=== PATIENT | male | born 1965 | race Caucasian/White ===

== ENCOUNTER → 2018-01-22 09:30 | Outpatient (CLI) | payer OTHER, SELFPAY ==
--- NOTE | 2018-01-22 09:32 | DI.RAD.S_ITS ---
PROCEDURE: XR ANKLE LT MIN 3V INDICATIONS: L ankle pain- TTP lateral mallelous TECHNIQUE: 3 views of the ankle were acquired. COMPARISON: None. FINDINGS: Bones: No fractures or dislocations. Ankle mortise is normally aligned. No suspicious bony lesions. Soft tissues: No tibiotalar joint effusion. Achilles tendon appears normal. IMPRESSION: No visualized acute fracture or dislocation. However, if clinical concern and/or pain persist, short interval imaging followup in 7-10 days is recommended, as occult injury cannot be definitively excluded. Dictated by: Beverly Singh M.D. on 01/22/2018 at 9:52 Approved by: Beverly Singh M.D. on 01/22/2018 at 9:53
== END ==
PROVIDERS: Family Provider Family Medicine; PCP Family Medicine
DX: M25.572 Pain in left ankle and joints of left foot (principal)
CPT/HCPCS: 73610

== ENCOUNTER 2018-03-28 15:35 | Emergency (ER) | payer OTHER, SELFPAY ==
[2018-03-28 15:36] VITALS: BP 127/78; PULSE 80; RESP 14; TEMP 37.1; O2SAT 78; BMI 25.5
--- NOTE | 2018-03-28 15:57 | DI.CT.S_ITS ---
PROCEDURE: CT ABDOMEN PELVIS W CON INDICATIONS: Right lower quadrant abdominal pain 2 weeks TECHNIQUE: After the administration of intravenous contrast, 5 mm thick sections acquired from the diaphragm to the symphysis. 5 mm coronal and sagittal reformats were acquired. For radiation dose reduction, the following was used: automated exposure control, adjustment of mA and/or kV according to patient size. COMPARISON: None. FINDINGS: Image quality: Excellent. ABDOMEN: Lung bases: Lung bases are clear. Heart size is normal. Solid organs: Liver is normal in size and enhancement, with what appears to be mild fatty infiltration throughout. Gallbladder appears normal. Biliary system is non dilated. Pancreas enhances normally. Spleen is normal in size and enhancement. No adrenal nodules. Kidneys demonstrate normal size and enhancement, without hydronephrosis. Peritoneum and bowel: Bowel loops demonstrate normal wall thickness and caliber except that the right upper quadrant where mural thickening of the proximal transverse colon is associated with acute diverticulitis without peridiverticular abscess. No free fluid or air. Nodes and vessels: No retroperitoneal or mesenteric adenopathy by size criteria. Aorta and inferior vena cava are normal in size. Miscellaneous: No ventral hernias. PELVIS: Genitourinary: Bladder wall thickness is normal. Miscellaneous: No inguinal hernias or adenopathy. Bones: No suspicious bony lesions. No vertebral body compression fractures. IMPRESSION: Right upper quadrant acute diverticulitis involving the proximal transverse colon, without. Diverticular abscess. Elsewhere the study is normal except for fatty infiltration throughout the liver. Dictated by: Hollis Bateman M.D. on 03/28/2018 at 17:14 Approved by: Hollis Bateman M.D. on 03/28/2018 at 17:20
[2018-03-28 16:02] LABS: Add Manual Diff / Slide Review NO; Basophils Percent Auto 0.7 % (0-2); Eosinophils Percent Auto 1.1 % (2-4); Hematocrit 38.4 % (41-53); Hemoglobin 13.3 g/dL (13.5-17.5); Lymphocytes Percent Auto 11.6 % (25-40); Mean Corpuscular HGB Conc 34.7 % (30-36); Mean Corpuscular Hemoglobin 31.3 PG (26-34); Mean Corpuscular Volume 90.3 fL (80-100); Monocytes Percent Auto 9.2 % (3-14); Neutrophils Absolute Auto 8400 /uL (3000-5900); Neutrophils Percent Auto 77.4 % (50-75); Platelet Count 187 X10^3/uL (150-400); Red Blood Cell Count 4.26 X10^6/uL (4.5-5.9); Red Cell Distribution Width 13.2 % (11.6-14.8); White Blood Cell Count 10.9 X10^3/uL (4.5-11.0)
[2018-03-28 16:06] LABS: INR 1.2 (0.9-1.3); Prothrombin Time 12.7 SECONDS (10.1-12.7)
[2018-03-28 16:08] LABS: PTT Partial Thromboplastin Tim 36 SECONDS (26.4-36.2)
[2018-03-28 16:14] LABS: Alanine Aminotransferase 42 IU/L (21-72); Albumin 4.5 g/dL (3.5-5.0); Albumin Globulin Ratio 1.5 (1.0-2.8); Alkaline Phosphatase 93 U/L (38-126); Aspartate Aminotransferase 30 IU/L (17-59); BUN Creatinine Ratio 16.4 (6-22); Bilirubin Total 0.9 mg/dL (0.2-1.3); Blood Urea Nitrogen 18 mg/dL (9-20); Calcium 9.9 mg/dL (8.4-10.2); Carbon Dioxide 28 mmol/L (22-32); Chloride 102 mmol/L (98-107); Estimated Glomerular Filt Rate > 60.0 mL/min (>60); Glucose 105 mg/dL (70-100); HEMOLYSIS < 15 (0-50); Lipase 51 U/L (23-300); Potassium 3.9 mmol/L (3.4-5.1); Sodium 142 mmol/L (137-145); Total Protein 7.5 g/dL (6.3-8.2)
--- NOTE | 2018-03-28 18:58 | ED.ABDPAIN ---
HPI - Abdominal Pain <ANDREWS Kraft - Last Filed: 03/28/18 21:51> General Chief Complaint: Abdominal Pain Stated Complaint: SENT FROM [facility] FOR APPENDICITIS Time Seen by Provider: 03/28/18 17:41 Source: patient, family and RN notes reviewed Mode of arrival: ambulatory Limitations: no limitations History of Present Illness HPI narrative: Patient presents with chief complaint of abdominal pain for the past 2-3 weeks. He was sent here from his PCP's office. Given his right side abdominal pain, that suspicion of appendicitis. Patient states his pain started 3 days ago. He denies fevers chills nausea vomiting or diarrhea. He denies constipation. He denies chest pain, shortness of breath, sore throat, ear pain or any other acute concerns. He states he has never felt this way before. Related Data Home Medications Medication Instructions Recorded Confirmed CA PANTOTHENATE/FOLIC ACID/VIT 1 tab PO Q DAY #0 03/24/13 03/28/18 (MULTIVITAMIN) ranitidine HCl [Zantac] 150 mg PO Q DAY #0 03/24/13 03/28/18 Previous Rx's Medication Instructions Recorded sildenafil (antihypertensive) 20 mg PO QDAY #30 tab 04/12/17 [Revatio] alprazolam 0.25 mg PO BID #60 tab 10/07/17 gabapentin 1,600 mg PO BID #180 tab 11/19/17 labetalol 200 mg tablet 200 mg PO BID #60 tab 03/17/18 gemfibrozil 600 mg tablet 600 mg PO DAILY #90 tab 03/19/18 ciprofloxacin HCl 500 mg PO Q12H 10 Days #20 tab 03/28/18 metronidazole 500 mg PO TID 10 Days #30 tab 03/28/18 oxycodone 5 mg PO Q4-6H PRN #14 tab 03/28/18 Allergies Allergy/AdvReac Type Severity Reaction Status Date / Time No Known Drug Allergies Allergy Verified 03/28/18 15:39 Review of Systems <ANDREWS Kraft - Last Filed: 03/28/18 21:51> Review of Systems GENERAL: Denies chills, fatigue, malaise, fever, sweats. HEENT: Denies sinus pain, ear pain, sore throat, difficulty swallowing, dizziness. RESPIRATORY: Denies dyspnea, cough, wheezing, hemoptysis, sputum. CARDIOVASCULAR: Denies chest pain, palpitations, orthopnea, edema, GASTROINTESTINAL: See HPI : Denies dysuria, frequency, incontinence, hematuria, urinary retention. MUSCULOSKELETAL: denies weakness, joint pain, or bony pain SKIN: Denies rash, skin lesions, or other NEUROLOGIC: Denies weakness, headache, numbness, change in speech, confusion, seizures, incoordination. PSYCHIATRIC: No concerning psychosocial issues. 12 point review of systems is negative except for those stated above Exam <JESSICA Kraft-BC - Last Filed: 03/28/18 21:51> Narrative Exam Narrative: GENERAL: This is a well-nourished, well-developed patient, in no acute distress sitting on stretcher. HEAD: Atraumatic. Normocephalic. No temporal or scalp tenderness. EYES: Pupils equal round and reactive. Extraocular motions intact. No scleral icterus. No injection or drainage. ENT: Nose without bleeding, purulent drainage or septal hematoma. Throat without erythema, tonsillar hypertrophy or exudate. Uvula midline. Airway patent. NECK: Trachea midline. No JVD or lymphadenopathy. Supple, nontender, no meningeal signs. CARDIOVASCULAR: Regular rate and rhythm without murmurs, gallops, or rubs. RESPIRATORY: Clear to auscultation. Breath sounds equal bilaterally. No wheezes, rales, or rhonchi. GASTROINTESTINAL: Abdomen soft, active bowel sounds all 4 quadrants. Tenderness to palpation noted right upper quadrant right lower quadrant. No guarding noted. Nonrigid abdomen. No pulsatile mass palpable. EXTREMITIES: No clubbing, cyanosis, or edema. No joint tenderness, effusion, or edema noted. BACK: Nontender without deformity or crepitance. No flank tenderness. NEURO: AOx3. SKIN: No rash or erythema. Initial Vital Signs Initial Vital Signs: Vital Signs Temperature 98.8 F 03/28/18 15:36 Pulse Rate 80 03/28/18 15:36 Respiratory Rate 14 03/28/18 15:36 Blood Pressure 127/78 03/28/18 15:36 Pulse Oximetry 78 L 03/28/18 15:36 <Carina Matias DO - Last Filed: 03/30/18 14:52> Initial Vital Signs Initial Vital Signs: Vital Signs Temperature 98.8 F 03/28/18 15:36 Pulse Rate 80 03/28/18 15:36 Respiratory Rate 14 03/28/18 15:36 Blood Pressure 127/78 03/28/18 15:36 Pulse Oximetry 78 L 03/28/18 15:36 Course <GEM KraftP-BC - Last Filed: 03/28/18 21:51> Orders Ordered: Discontinued Medications Ciprofloxacin (Cipro) 500 mg PO NOW ONE Stop: 03/28/18 19:41 Last Admin: 03/28/18 19:55 Dose: 500 mg Metronidazole (Metronidazole) 500 mg PO NOW ONE Stop: 03/28/18 19:41 Last Admin: 03/28/18 19:55 Dose: 500 mg Morphine Sulfate (Morphine) 4 mg IV NOW ONE Stop: 03/28/18 19:32 Last Admin: 03/28/18 19:37 Dose: 4 mg Ondansetron HCl (Zofran) 4 mg IV NOW ONE Stop: 03/28/18 19:32 Last Admin: 03/28/18 19:37 Dose: 4 mg Vital Signs - 8 hr 03/28/18 15:36 03/28/18 20:10 Temperature 98.8 F Pulse Rate 80 75 Respiratory Rate 14 16 Blood Pressure 127/78 Blood Pressure [Left Arm] 138/85 Pulse Oximetry 78 L 99 <Carina Matias DO - Last Filed: 03/30/18 14:52> Orders Ordered: Discontinued Medications Ciprofloxacin (Cipro) 500 mg PO NOW ONE Stop: 03/28/18 19:41 Last Admin: 03/28/18 19:55 Dose: 500 mg Metronidazole (Metronidazole) 500 mg PO NOW ONE Stop: 03/28/18 19:41 Last Admin: 03/28/18 19:55 Dose: 500 mg Morphine Sulfate (Morphine) 4 mg IV NOW ONE Stop: 03/28/18 19:32 Last Admin: 03/28/18 19:37 Dose: 4 mg Ondansetron HCl (Zofran) 4 mg IV NOW ONE Stop: 03/28/18 19:32 Last Admin: 03/28/18 19:37 Dose: 4 mg Vital Signs - 8 hr 03/28/18 15:36 03/28/18 20:10 Temperature 98.8 F Pulse Rate 80 75 Respiratory Rate 14 16 Blood Pressure 127/78 Blood Pressure [Left Arm] 138/85 Pulse Oximetry 78 L 99 MDM - Abdominal Pain <Gretchen Sadler, GEAR REPAIRER-BC - Last Filed: 03/28/18 21:51> Differential Diagnosis Differential diagnosis: Likely abdominal pain, acute appendicitis, constipation, diverticulitis and gastroenteritis Lab Data Result diagrams: 03/28/18 15:50 03/28/18 15:50 Lab Results 03/28/18 03/28/18 03/28/18 Range/Units 15:50 15:50 15:50 WBC 10.9 (4.5-11.0) X10^3/uL RBC 4.26 L (4.5-5.9) X10^6/uL Hgb 13.3 L (13.5-17.5) g/dL Hct 38.4 L (41-53) % MCV 90.3 (80-100) fL MCH 31.3 (26-34) PG MCHC 34.7 (30-36) % RDW 13.2 (11.6-14.8) % Plt Count 187 (150-400) X10^3/uL Neut % (Auto) 77.4 H (50-75) % Lymph % (Auto) 11.6 L (25-40) % [place] % (Auto) 9.2 (3-14) % Eos % (Auto) 1.1 L (2-4) % Baso % (Auto) 0.7 (0-2) % Neut # (Auto) 8400 H (7477-1407) /uL PT 12.7 (10.1-12.7) SECONDS INR 1.2 (0.9-1.3) APTT 36 (26.4-36.2) SECONDS Sodium 142 (137-145) mmol/L Potassium 3.9 (3.4-5.1) mmol/L Chloride 102 (98-107) mmol/L Carbon Dioxide 28 (22-32) mmol/L BUN 18 (9-20) mg/dL Creatinine 1.10 (0.66-1.25) mg/dL Estimated GFR > 60.0 (>60) mL/min BUN/Creatinine Ratio 16.4 (6-22) Glucose 105 H (70-100) mg/dL Calcium 9.9 (8.4-10.2) mg/dL Total Bilirubin 0.9 (0.2-1.3) mg/dL AST 30 (17-59) IU/L ALT 42 (21-72) IU/L Alkaline Phosphatase 93 (38-126) U/L Total Protein 7.5 (6.3-8.2) g/dL Albumin 4.5 (3.5-5.0) g/dL Globulin 3.0 (1.7-4.1) g/dL Albumin/Globulin Ratio 1.5 (1.0-2.8) Lipase 51 (23-300) U/L Imaging Data CT scan - abdomen: Radiologist's impression: View Report History [address] [address] [address] Scan Report Addendum Patient: Anson Del Toro MR#: [id number] : 1965 Acct:[id number] Age/Sex: 52 / M Date of Service: 03/28/18 Loc: ED Accession Number: [id number] Procedure: CT abdomen pelvis w con Ordering Provider: Carina Matias D.O. ADDENDUM This report includes an Addendum and supersedes previous reports for this exam. PROCEDURE: CT ABDOMEN PELVIS W CON INDICATIONS: Right lower quadrant abdominal pain 2 weeks TECHNIQUE: After the administration of intravenous contrast, 5 mm thick sections acquired from the diaphragm to the symphysis. 5 mm coronal and sagittal reformats were acquired. For radiation dose reduction, the following was used: automated exposure control, adjustment of mA and/or kV according to patient size. COMPARISON: None. FINDINGS: Image quality: Excellent. ABDOMEN: Lung bases: Lung bases are clear. Heart size is normal. Solid organs: Liver is normal in size and enhancement, with what appears to be mild fatty infiltration throughout. Gallbladder appears normal. Biliary system is non dilated. Pancreas enhances normally. Spleen is normal in size and enhancement. No adrenal nodules. Kidneys demonstrate normal size and enhancement, without hydronephrosis. Peritoneum and bowel: Bowel loops demonstrate normal wall thickness and caliber except that the right upper quadrant where mural thickening of the proximal transverse colon is associated with acute diverticulitis without peridiverticular abscess. No free fluid or air. Nodes and vessels: No retroperitoneal or mesenteric adenopathy by size criteria. Aorta and inferior vena cava are normal in size. Miscellaneous: No ventral hernias. PELVIS: Genitourinary: Bladder wall thickness is normal. Miscellaneous: No inguinal hernias or adenopathy. Bones: No suspicious bony lesions. No vertebral body compression fractures. IMPRESSION: Right upper quadrant acute diverticulitis involving the proximal transverse colon, without. Diverticular abscess. Elsewhere the study is normal except for fatty infiltration throughout the liver. Dictated by: Hollis Bateman M.D. on 03/28/2018 at 17:14 Approved by: Hollis Bateman M.D. 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 This is a normal anatomic variant. Dictated by: Hollis Bateman M.D. on 03/28/2018 at 17:24 Approved by: Hollis Bateman M.D. on 03/28/2018 at 17:25 Addendum Dictated By: Hollis Bateman MD Addendum Signed By: Addendum Cosigned By: DD/ TD/TT: 03/28/18 PROCEDURE: CT ABDOMEN PELVIS W CON INDICATIONS: Right lower quadrant abdominal pain 2 weeks TECHNIQUE: After the administration of intravenous contrast, 5 mm thick sections acquired from the diaphragm to the symphysis. 5 mm coronal and sagittal reformats were acquired. For radiation dose reduction, the following was used: automated exposure control, adjustment of mA and/or kV according to patient size. COMPARISON: None. FINDINGS: Image quality: Excellent. ABDOMEN: Lung bases: Lung bases are clear. Heart size is normal. Solid organs: Liver is normal in size and enhancement, with what appears to be mild fatty infiltration throughout. Gallbladder appears normal. Biliary system is non dilated. Pancreas enhances normally. Spleen is normal in size and enhancement. No adrenal nodules. Kidneys demonstrate normal size and enhancement, without hydronephrosis. Peritoneum and bowel: Bowel loops demonstrate normal wall thickness and caliber except that the right upper quadrant where mural thickening of the proximal transverse colon is associated with acute diverticulitis without peridiverticular abscess. No free fluid or air. Nodes and vessels: No retroperitoneal or mesenteric adenopathy by size criteria. Aorta and inferior vena cava are normal in size. Miscellaneous: No ventral hernias. PELVIS: Genitourinary: Bladder wall thickness is normal. Miscellaneous: No inguinal hernias or adenopathy. Bones: No suspicious bony lesions. No vertebral body compression fractures. IMPRESSION: Right upper quadrant acute diverticulitis involving the proximal transverse colon, without. Diverticular abscess. Elsewhere the study is normal except for fatty infiltration throughout the liver. Dictated by: Hollis Bateman M.D. on 03/28/2018 at 17:14 Approved by: Hollis Bateman M.D. on 03/28/2018 at 17:20 [facility] Narrative Medical decision making narrative: The patient presents with chief complaint of abdominal pain on the right side. He is hemodynamically stable and afebrile. His CT illustrated diverticulitis. The CT was started on Flagyl and Cipro as per up-to-date recommendations. He was treated with morphine and Zofran for pain and nausea in the emergency department. I gave him a prescription of oxycodone. I discussed at length strict follow-up with a recheck with his primary care in a few days. I discussed very strict return precautions the emergency department if he is worsening, fevers, or any acute concerns. Patient under questions or concerns upon discharge. <Carina Matias, DO - Last Filed: 03/30/18 14:52> Lab Data Lab Results 03/28/18 03/28/18 03/28/18 Range/Units 15:50 15:50 15:50 WBC 10.9 (4.5-11.0) X10^3/uL RBC 4.26 L (4.5-5.9) X10^6/uL Hgb 13.3 L (13.5-17.5) g/dL Hct 38.4 L (41-53) % MCV 90.3 (80-100) fL MCH 31.3 (26-34) PG MCHC 34.7 (30-36) % RDW 13.2 (11.6-14.8) % Plt Count 187 (150-400) X10^3/uL Neut % (Auto) 77.4 H (50-75) % Lymph % (Auto) 11.6 L (25-40) % [place] % (Auto) 9.2 (3-14) % Eos % (Auto) 1.1 L (2-4) % Baso % (Auto) 0.7 (0-2) % Neut # (Auto) 8400 H (9018-4890) /uL PT 12.7 (10.1-12.7) SECONDS INR 1.2 (0.9-1.3) APTT 36 (26.4-36.2) SECONDS Sodium 142 (137-145) mmol/L Potassium 3.9 (3.4-5.1) mmol/L Chloride 102 (98-107) mmol/L Carbon Dioxide 28 (22-32) mmol/L BUN 18 (9-20) mg/dL Creatinine 1.10 (0.66-1.25) mg/dL Estimated GFR > 60.0 (>60) mL/min BUN/Creatinine Ratio 16.4 (6-22) Glucose 105 H (70-100) mg/dL Calcium 9.9 (8.4-10.2) mg/dL Total Bilirubin 0.9 (0.2-1.3) mg/dL AST 30 (17-59) IU/L ALT 42 (21-72) IU/L Alkaline Phosphatase 93 (38-126) U/L Total Protein 7.5 (6.3-8.2) g/dL Albumin 4.5 (3.5-5.0) g/dL Globulin 3.0 (1.7-4.1) g/dL Albumin/Globulin Ratio 1.5 (1.0-2.8) Lipase 51 (23-300) U/L Discharge Plan Departure Patient Disposition: Home Clinical Impression: Diverticulitis Discharge Date/Time: 03/28/18 20:21 Interventions: ED Discharge Assessment Last Done: 03/28/18 20:19 Instructions: Diverticulitis Activity Restrictions/Additional Instructions: Your CT scan today showed no evidence of appendicitis. However the CT does show some diverticulitis. This is an infection of the small pouches in the intestines. It is a good idea to eat a lot of fiber at this point time. I would like you to follow up with primary care physician in a few days. I would like you to come back to the emergency department if he developed fevers, can't keep down fluids, or have any acute concerns. If you are feeling worse then please come back to the emergency department. Some people with diverticulitis and needing IV antibiotics. Prescriptions: New metronidazole 500 mg tablet 500 mg PO TID 10 Days Qty: 30 RF: 0 ciprofloxacin HCl 500 mg tablet 500 mg PO Q12H 10 Days Qty: 20 RF: 0 oxycodone 5 mg tablet 5 mg PO Q4-6H PRN (Reason: pain) Qty: 14 RF: 0 No Action ranitidine HCl [Zantac] 150 MG tablet 150 mg PO Q DAY Qty: 0 RF: 0 CA PANTOTHENATE/FOLIC ACID/VIT (MULTIVITAMIN) 1 tab PO Q DAY Qty: 0 RF: 0 sildenafil (antihypertensive) [Revatio] 20 MG tablet 20 mg PO QDAY Qty: 30 RF: 0 alprazolam 0.25 MG tablet 0.25 mg PO BID Qty: 60 RF: 0 gabapentin 800 MG tablet 1,600 mg PO BID Qty: 180 RF: 3 labetalol 200 mg tablet 200 mg PO BID Qty: 60 RF: 11 gemfibrozil 600 mg tablet 600 mg PO DAILY Qty: 90 RF: 3 <Carina Mtaias, DO - Last Filed: 03/30/18 14:52> Cosign ED Attending Cosradhaature Attestation: I was immediately available in the department for consultation. Documentation has been reviewed. I agree with assessment and plan.
--- NOTE | 2018-03-28 19:02 | ED_ITS ---
HPI - Abdominal Pain <ANDREWS Kraft - Last Filed: 03/28/18 21:51> General Chief Complaint: Abdominal Pain Stated Complaint: [facility] Time Seen by Provider: 03/28/18 17:41 Source: patient, family and RN notes reviewed Mode of arrival: ambulatory Limitations: no limitations History of Present Illness HPI narrative: Patient presents with chief complaint of abdominal pain for the past 2-3 weeks. He was sent here from his PCP's office. Given his right side abdominal pain, that suspicion of appendicitis. Patient states his pain started 3 days ago. He denies fevers chills nausea vomiting or diarrhea. He denies constipation. He denies chest pain, shortness of breath, sore throat, ear pain or any other acute concerns. He states he has never felt this way before. Related Data Home Medications Medication Instructions Recorded Confirmed CA PANTOTHENATE/FOLIC ACID/VIT 1 tab PO Q DAY #0 03/24/13 03/28/18 (MULTIVITAMIN) ranitidine HCl [Zantac] 150 mg PO Q DAY #0 03/24/13 03/28/18 Previous Rx's Medication Instructions Recorded sildenafil (antihypertensive) 20 mg PO QDAY #30 tab 04/12/17 [Revatio] alprazolam 0.25 mg PO BID #60 tab 10/07/17 gabapentin 1,600 mg PO BID #180 tab 11/19/17 labetalol 200 mg tablet 200 mg PO BID #60 tab 03/17/18 gemfibrozil 600 mg tablet 600 mg PO DAILY #90 tab 03/19/18 ciprofloxacin HCl 500 mg PO Q12H 10 Days #20 tab 03/28/18 metronidazole 500 mg PO TID 10 Days #30 tab 03/28/18 oxycodone 5 mg PO Q4-6H PRN #14 tab 03/28/18 Allergies Allergy/AdvReac Type Severity Reaction Status Date / Time No Known Drug Allergies Allergy Verified 03/28/18 15:39 Review of Systems <ANDREWS Kraft - Last Filed: 03/28/18 21:51> Review of Systems GENERAL: Denies chills, fatigue, malaise, fever, sweats. HEENT: Denies sinus pain, ear pain, sore throat, difficulty swallowing, dizziness. RESPIRATORY: Denies dyspnea, cough, wheezing, hemoptysis, sputum. CARDIOVASCULAR: Denies chest pain, palpitations, orthopnea, edema, GASTROINTESTINAL: See HPI : Denies dysuria, frequency, incontinence, hematuria, urinary retention. MUSCULOSKELETAL: denies weakness, joint pain, or bony pain SKIN: Denies rash, skin lesions, or other NEUROLOGIC: Denies weakness, headache, numbness, change in speech, confusion, seizures, incoordination. PSYCHIATRIC: No concerning psychosocial issues. 12 point review of systems is negative except for those stated above Exam <JESSICA Kraft-BC - Last Filed: 03/28/18 21:51> Narrative Exam Narrative: GENERAL: This is a well-nourished, well-developed patient, in no acute distress sitting on stretcher. HEAD: Atraumatic. Normocephalic. No temporal or scalp tenderness. EYES: Pupils equal round and reactive. Extraocular motions intact. No scleral icterus. No injection or drainage. ENT: Nose without bleeding, purulent drainage or septal hematoma. Throat without erythema, tonsillar hypertrophy or exudate. Uvula midline. Airway patent. NECK: Trachea midline. No JVD or lymphadenopathy. Supple, nontender, no meningeal signs. CARDIOVASCULAR: Regular rate and rhythm without murmurs, gallops, or rubs. RESPIRATORY: Clear to auscultation. Breath sounds equal bilaterally. No wheezes , rales, or rhonchi. GASTROINTESTINAL: Abdomen soft, active bowel sounds all 4 quadrants. Tenderness to palpation noted right upper quadrant right lower quadrant. No guarding noted. Nonrigid abdomen. No pulsatile mass palpable. EXTREMITIES: No clubbing, cyanosis, or edema. No joint tenderness, effusion, or edema noted. BACK: Nontender without deformity or crepitance. No flank tenderness. NEURO: AOx3. SKIN: No rash or erythema. Initial Vital Signs Initial Vital Signs: Vital Signs Temperature 98.8 F 03/28/18 15:36 Pulse Rate 80 03/28/18 15:36 Respiratory Rate 14 03/28/18 15:36 Blood Pressure 127/78 03/28/18 15:36 Pulse Oximetry 78 L 03/28/18 15:36 <Carina Matias DO - Last Filed: 03/30/18 14:52> Initial Vital Signs Initial Vital Signs: Vital Signs Temperature 98.8 F 03/28/18 15:36 Pulse Rate 80 03/28/18 15:36 Respiratory Rate 14 03/28/18 15:36 Blood Pressure 127/78 03/28/18 15:36 Pulse Oximetry 78 L 03/28/18 15:36 Course <GEM KraftP-BC - Last Filed: 03/28/18 21:51> Orders Ordered: Discontinued Medications Ciprofloxacin (Cipro) 500 mg PO NOW ONE Stop: 03/28/18 19:41 Last Admin: 03/28/18 19:55 Dose: 500 mg Metronidazole (Metronidazole) 500 mg PO NOW ONE Stop: 03/28/18 19:41 Last Admin: 03/28/18 19:55 Dose: 500 mg Morphine Sulfate (Morphine) 4 mg IV NOW ONE Stop: 03/28/18 19:32 Last Admin: 03/28/18 19:37 Dose: 4 mg Ondansetron HCl (Zofran) 4 mg IV NOW ONE Stop: 03/28/18 19:32 Last Admin: 03/28/18 19:37 Dose: 4 mg Vital Signs - 8 hr 03/28/18 15:36 03/28/18 20:10 Temperature 98.8 F Pulse Rate 80 75 Respiratory Rate 14 16 Blood Pressure 127/78 Blood Pressure [Left Arm] 138/85 Pulse Oximetry 78 L 99 <Carina Matias DO - Last Filed: 03/30/18 14:52> Orders Ordered: Discontinued Medications Ciprofloxacin (Cipro) 500 mg PO NOW ONE Stop: 03/28/18 19:41 Last Admin: 03/28/18 19:55 Dose: 500 mg Metronidazole (Metronidazole) 500 mg PO NOW ONE Stop: 03/28/18 19:41 Last Admin: 03/28/18 19:55 Dose: 500 mg Morphine Sulfate (Morphine) 4 mg IV NOW ONE Stop: 03/28/18 19:32 Last Admin: 03/28/18 19:37 Dose: 4 mg Ondansetron HCl (Zofran) 4 mg IV NOW ONE Stop: 03/28/18 19:32 Last Admin: 03/28/18 19:37 Dose: 4 mg Vital Signs - 8 hr 03/28/18 15:36 03/28/18 20:10 Temperature 98.8 F Pulse Rate 80 75 Respiratory Rate 14 16 Blood Pressure 127/78 Blood Pressure [Left Arm] 138/85 Pulse Oximetry 78 L 99 MDM - Abdominal Pain <Gretchen Sadler, [employer]-BC - Last Filed: 03/28/18 21:51> Differential Diagnosis Differential diagnosis: Likely abdominal pain, acute appendicitis, constipation , diverticulitis and gastroenteritis Lab Data Result diagrams: 03/28/18 15:50 03/28/18 15:50 Lab Results 03/28/18 03/28/18 03/28/18 Range/Units 15:50 15:50 15:50 WBC 10.9 (4.5-11.0) X10^3/uL RBC 4.26 L (4.5-5.9) X10^6/uL Hgb 13.3 L (13.5-17.5) g/dL Hct 38.4 L (41-53) % MCV 90.3 (80-100) fL MCH 31.3 (26-34) PG MCHC 34.7 (30-36) % RDW 13.2 (11.6-14.8) % Plt Count 187 (150-400) X10^3/uL Neut % (Auto) 77.4 H (50-75) % Lymph % (Auto) 11.6 L (25-40) % Cotton % (Auto) 9.2 (3-14) % Eos % (Auto) 1.1 L (2-4) % Baso % (Auto) 0.7 (0-2) % Neut # (Auto) 8400 H (7124-6734) /uL PT 12.7 (10.1-12.7) SECONDS INR 1.2 (0.9-1.3) APTT 36 (26.4-36.2) SECONDS Sodium 142 (137-145) mmol/L Potassium 3.9 (3.4-5.1) mmol/L Chloride 102 (98-107) mmol/L Carbon Dioxide 28 (22-32) mmol/L BUN 18 (9-20) mg/dL Creatinine 1.10 (0.66-1.25) mg/dL Estimated GFR > 60.0 (>60) mL/min BUN/Creatinine Ratio 16.4 (6-22) Glucose 105 H (70-100) mg/dL Calcium 9.9 (8.4-10.2) mg/dL Total Bilirubin 0.9 (0.2-1.3) mg/dL AST 30 (17-59) IU/L ALT 42 (21-72) IU/L Alkaline Phosphatase 93 (38-126) U/L Total Protein 7.5 (6.3-8.2) g/dL Albumin 4.5 (3.5-5.0) g/dL Globulin 3.0 (1.7-4.1) g/dL Albumin/Globulin Ratio 1.5 (1.0-2.8) Lipase 51 (23-300) U/L Imaging Data CT scan - abdomen: Radiologist's impression: View Report History [address] [address] [address] Scan Report Addendum Patient: Anson Del Toro MR#: [id number] : 1965 Acct:[id number] Age/Sex: 52 / M Date of Service: 03/28/18 Loc: ED Accession Number: [id number] Procedure: CT abdomen pelvis w con Ordering Provider: Carina Matias D.O. ADDENDUM This report includes an Addendum and supersedes previous reports for this exam. PROCEDURE: CT ABDOMEN PELVIS W CON INDICATIONS: Right lower quadrant abdominal pain 2 weeks TECHNIQUE: After the administration of intravenous contrast, 5 mm thick sections acquired from the diaphragm to the symphysis. 5 mm coronal and sagittal reformats were acquired. For radiation dose reduction, the following was used: automated exposure control, adjustment of mA and/or kV according to patient size. COMPARISON: None. FINDINGS: Image quality: Excellent. ABDOMEN: Lung bases: Lung bases are clear. Heart size is normal. Solid organs: Liver is normal in size and enhancement, with what appears to be mild fatty infiltration throughout. Gallbladder appears normal. Biliary system is non dilated. Pancreas enhances normally. Spleen is normal in size and enhancement. No adrenal nodules. Kidneys demonstrate normal size and enhancement, without hydronephrosis. Peritoneum and bowel: Bowel loops demonstrate normal wall thickness and caliber except that the right upper quadrant where mural thickening of the proximal transverse colon is associated with acute diverticulitis without peridiverticular abscess. No free fluid or air. Nodes and vessels: No retroperitoneal or mesenteric adenopathy by size criteria. Aorta and inferior vena cava are normal in size. Miscellaneous: No ventral hernias. PELVIS: Genitourinary: Bladder wall thickness is normal. Miscellaneous: No inguinal hernias or adenopathy. Bones: No suspicious bony lesions. No vertebral body compression fractures. IMPRESSION: Right upper quadrant acute diverticulitis involving the proximal transverse colon, without. Diverticular abscess. Elsewhere the study is normal except for fatty infiltration throughout the liver. Dictated by: Hollis Bateman M.D. on 03/28/2018 at 17:14 Approved by: Hollis Bateman M.D. 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 This is a normal anatomic variant. Dictated by: Hollis Bateman M.D. on 03/28/2018 at 17:24 Approved by: Hollis Bateman M.D. on 03/28/2018 at 17:25 Addendum Dictated By: Hollis Bateman MD Addendum Signed By: Addendum Cosigned By: DD/ TD/TT: 03/28/18 PROCEDURE: CT ABDOMEN PELVIS W CON INDICATIONS: Right lower quadrant abdominal pain 2 weeks TECHNIQUE: After the administration of intravenous contrast, 5 mm thick sections acquired from the diaphragm to the symphysis. 5 mm coronal and sagittal reformats were acquired. For radiation dose reduction, the following was used: automated exposure control, adjustment of mA and/or kV according to patient size. COMPARISON: None. FINDINGS: Image quality: Excellent. ABDOMEN: Lung bases: Lung bases are clear. Heart size is normal. Solid organs: Liver is normal in size and enhancement, with what appears to be mild fatty infiltration throughout. Gallbladder appears normal. Biliary system is non dilated. Pancreas enhances normally. Spleen is normal in size and enhancement. No adrenal nodules. Kidneys demonstrate normal size and enhancement, without hydronephrosis. Peritoneum and bowel: Bowel loops demonstrate normal wall thickness and caliber except that the right upper quadrant where mural thickening of the proximal transverse colon is associated with acute diverticulitis without peridiverticular abscess. No free fluid or air. Nodes and vessels: No retroperitoneal or mesenteric adenopathy by size criteria. Aorta and inferior vena cava are normal in size. Miscellaneous: No ventral hernias. PELVIS: Genitourinary: Bladder wall thickness is normal. Miscellaneous: No inguinal hernias or adenopathy. Bones: No suspicious bony lesions. No vertebral body compression fractures. IMPRESSION: Right upper quadrant acute diverticulitis involving the proximal transverse colon, without. Diverticular abscess. Elsewhere the study is normal except for fatty infiltration throughout the liver. Dictated by: Hollis Bateman M.D. on 03/28/2018 at 17:14 Approved by: Hollis Bateman M.D. on 03/28/2018 at 17:20 [facility] Narrative Medical decision making narrative: The patient presents with chief complaint of abdominal pain on the right side. He is hemodynamically stable and afebrile. His CT illustrated diverticulitis. The CT was started on Flagyl and Cipro as per up-to-date recommendations. He was treated with morphine and Zofran for pain and nausea in the emergency department. I gave him a prescription of oxycodone. I discussed at length strict follow-up with a recheck with his primary care in a few days. I discussed very strict return precautions the emergency department if he is worsening, fevers, or any acute concerns. Patient under questions or concerns upon discharge. <Carina Matias, DO - Last Filed: 03/30/18 14:52> Lab Data Lab Results 03/28/18 03/28/18 03/28/18 Range/Units 15:50 15:50 15:50 WBC 10.9 (4.5-11.0) X10^3/uL RBC 4.26 L (4.5-5.9) X10^6/uL Hgb 13.3 L (13.5-17.5) g/dL Hct 38.4 L (41-53) % MCV 90.3 (80-100) fL MCH 31.3 (26-34) PG MCHC 34.7 (30-36) % RDW 13.2 (11.6-14.8) % Plt Count 187 (150-400) X10^3/uL Neut % (Auto) 77.4 H (50-75) % Lymph % (Auto) 11.6 L (25-40) % Cotton % (Auto) 9.2 (3-14) % Eos % (Auto) 1.1 L (2-4) % Baso % (Auto) 0.7 (0-2) % Neut # (Auto) 8400 H (4633-6175) /uL PT 12.7 (10.1-12.7) SECONDS INR 1.2 (0.9-1.3) APTT 36 (26.4-36.2) SECONDS Sodium 142 (137-145) mmol/L Potassium 3.9 (3.4-5.1) mmol/L Chloride 102 (98-107) mmol/L Carbon Dioxide 28 (22-32) mmol/L BUN 18 (9-20) mg/dL Creatinine 1.10 (0.66-1.25) mg/dL Estimated GFR > 60.0 (>60) mL/min BUN/Creatinine Ratio 16.4 (6-22) Glucose 105 H (70-100) mg/dL Calcium 9.9 (8.4-10.2) mg/dL Total Bilirubin 0.9 (0.2-1.3) mg/dL AST 30 (17-59) IU/L ALT 42 (21-72) IU/L Alkaline Phosphatase 93 (38-126) U/L Total Protein 7.5 (6.3-8.2) g/dL Albumin 4.5 (3.5-5.0) g/dL Globulin 3.0 (1.7-4.1) g/dL Albumin/Globulin Ratio 1.5 (1.0-2.8) Lipase 51 (23-300) U/L Discharge Plan Departure Patient Disposition: Home Clinical Impression: Diverticulitis Discharge Date/Time: 03/28/18 20:21 Interventions: ED Discharge Assessment Last Done: 03/28/18 20:19 Instructions: Diverticulitis Activity Restrictions/Additional Instructions: Your CT scan today showed no evidence of appendicitis. However the CT does show some diverticulitis. This is an infection of the small pouches in the intestines. It is a good idea to eat a lot of fiber at this point time. I would like you to follow up with primary care physician in a few days. I would like you to come back to the emergency department if he developed fevers, can't keep down fluids, or have any acute concerns. If you are feeling worse then please come back to the emergency department. Some people with diverticulitis and needing IV antibiotics. Prescriptions: New metronidazole 500 mg tablet 500 mg PO TID 10 Days Qty: 30 RF: 0 ciprofloxacin HCl 500 mg tablet 500 mg PO Q12H 10 Days Qty: 20 RF: 0 oxycodone 5 mg tablet 5 mg PO Q4-6H PRN (Reason: pain) Qty: 14 RF: 0 No Action ranitidine HCl [Zantac] 150 MG tablet 150 mg PO Q DAY Qty: 0 RF: 0 CA PANTOTHENATE/FOLIC ACID/VIT (MULTIVITAMIN) 1 tab PO Q DAY Qty: 0 RF: 0 sildenafil (antihypertensive) [Revatio] 20 MG tablet 20 mg PO QDAY Qty: 30 RF: 0 alprazolam 0.25 MG tablet 0.25 mg PO BID Qty: 60 RF: 0 gabapentin 800 MG tablet 1,600 mg PO BID Qty: 180 RF: 3 labetalol 200 mg tablet 200 mg PO BID Qty: 60 RF: 11 gemfibrozil 600 mg tablet 600 mg PO DAILY Qty: 90 RF: 3 <Carina Matias, DO - Last Filed: 03/30/18 14:52> Cosign ED Attending Cosradhaature Attestation: I was immediately available in the department for consultation. Documentation has been reviewed. I agree with assessment and plan.
[2018-03-28] MEDS: ONDANSETRON 4 MG/2 ML INJ IV (19:37)
[2018-03-28] MEDS: MORPHINE 4 MG/ML INJ IV (19:37)
[2018-03-28] MEDS: CIPROFLOXACIN 500 MG TABLET PO (19:55)
[2018-03-28] MEDS: metroNIDAZOLE 250 MG TABLET 500 MG PO (19:55)
[2018-03-28 20:10] VITALS: BP 138/85; PULSE 75; RESP 16; O2SAT 99
== END 2018-03-28 20:21 | disposition home or self-care (01) ==
PROVIDERS: Emergency Medicine; Emergency Provider Nurse Practitioner Family; Family Provider Family Medicine; PCP Family Medicine
DX: K57.92 Diverticulitis of intestine, part unspecified, without perforation or abscess without bleeding (principal)
CPT/HCPCS: 36591; 74177; 80053; 83690; 85025; 85610; 85730; 96374; 96375; 99282; 99285; J2270; J2405; Q9967

== ENCOUNTER → 2018-04-11 11:52 | Outpatient (CLI) | payer OTHER, SELFPAY ==
[2018-04-11 12:12] LABS: Add Manual Diff / Slide Review NO; Basophils Percent Auto 0.7 % (0-2); Eosinophils Percent Auto 0.5 % (2-4); Hemoglobin 13.9 g/dL (13.5-17.5); Lymphocytes Percent Auto 8.7 % (25-40); Mean Corpuscular HGB Conc 33.8 % (30-36); Mean Corpuscular Hemoglobin 30.3 PG (26-34); Mean Corpuscular Volume 89.7 fL (80-100); Monocytes Percent Auto 6.5 % (3-14); Neutrophils Absolute Auto 10700 /uL (3000-5900); Neutrophils Percent Auto 83.6 % (50-75); Platelet Count 231 X10^3/uL (150-400); Red Blood Cell Count 4.57 X10^6/uL (4.5-5.9); Red Cell Distribution Width 12.9 % (11.6-14.8); White Blood Cell Count 12.8 X10^3/uL (4.5-11.0)
[2018-04-11 12:24] LABS: Alanine Aminotransferase 53 IU/L (21-72); Albumin 4.4 g/dL (3.5-5.0); Albumin Globulin Ratio 1.4 (1.0-2.8); Alkaline Phosphatase 74 U/L (38-126); Aspartate Aminotransferase 26 IU/L (17-59); Bilirubin Total 0.9 mg/dL (0.2-1.3); Blood Urea Nitrogen 13 mg/dL (9-20); Calcium 9.6 mg/dL (8.4-10.2); Carbon Dioxide 28 mmol/L (22-32); Chloride 103 mmol/L (98-107); Estimated Glomerular Filt Rate > 60.0 mL/min (>60); Globulin 3.1 g/dL (1.7-4.1); Glucose 103 mg/dL (70-100); HEMOLYSIS < 15 (0-50); Lipase 57 U/L (23-300); Potassium 3.9 mmol/L (3.4-5.1); Sodium 142 mmol/L (137-145); Total Protein 7.5 g/dL (6.3-8.2)
== END ==
PROVIDERS: PCP Family Medicine; Visit Provider Internal Medicine
DX: R10.9 Unspecified abdominal pain (principal); R19.7 Diarrhea, unspecified
CPT/HCPCS: 36415; 80053; 83690; 85025

== ENCOUNTER → 2018-04-15 12:04 | Outpatient (CLI) | payer OTHER, SELFPAY ==
--- NOTE | 2018-04-15 13:26 | DI.CT.S_ITS ---
PROCEDURE: CT ABDOMEN PELVIS W CON INDICATIONS: diverticulitis r/o absces or obstruction. Continued right lower quadrant pain TECHNIQUE: After the administration of oral and intravenous contrast, 5 mm thick sections acquired from the diaphragms to the symphysis. 5 mm thick coronal and sagittal reformats were performed. For radiation dose reduction, the following was used: automated exposure control, adjustment of mA and/or kV according to patient size. COMPARISON: [facility], CT, CT ABDOMEN PELVIS W CON, 03/28/2018, 16:30. [facility], CT, ABDOMEN W&WO CONTRAST, 07/06/2014, 9:37. FINDINGS: Image quality: Excellent. ABDOMEN: Lung bases: Lung bases are clear. Heart size is normal. Solid organs: Liver is normal in size and enhancement. Gallbladder wall is not thickened. Biliary system is non-dilated. Pancreas enhances normally. Spleen is normal in size and enhancement. No adrenal nodules. Kidneys are normal in size and enhancement, without hydronephrosis. Peritoneum and bowel: Stomach, small bowel, and colon loops are normal in caliber and wall thickness. No free fluid or air. 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 Nodes and vessels: A distal sigmoid wall thickening is seen, with surrounding inflammatory change. No free air can be seen to suggest perforation. No loculated fluid collections are seen to suggest abscess. Diverticula formation can be seen within the sigmoid colon. No other areas of bowel thickening are seen. No dilated loops of small bowel are seen. Miscellaneous: No ventral hernias. PELVIS: Genitourinary: Bladder wall thickness is normal. Miscellaneous: No inguinal adenopathy. There is a minimal fat containing right inguinal hernia. Bones: No suspicious bony lesions. He well demarcated cystic appearing lesion can be seen within the L3, measuring 1.4 cm, as on series 5 image 37. No vertebral body compression fractures. IMPRESSION: Moderate distal sigmoid diverticulitis, without findings of perforation or abscess. The previously seen hepatic flexure diverticulitis has resolved. 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 Dictated by: Immanuel Guillen M.D. on 04/15/2018 at 13:39 Approved by: Immanuel Guillen M.D. on 04/15/2018 at 13:45
== END ==
PROVIDERS: Family Provider Family Medicine; PCP Family Medicine; Visit Provider Family Medicine
DX: K57.32 Diverticulitis of large intestine without perforation or abscess without bleeding (principal); R10.31 Right lower quadrant pain
CPT/HCPCS: 74177; Q9967

== ENCOUNTER → 2018-11-19 08:09 | Outpatient (CLI) | payer OTHER, SELFPAY ==
[2018-11-19 08:40] LABS: Add Manual Diff / Slide Review NO; Basophils Absolute Auto 0 /uL (0-100); Eosinophils Absolute Auto 100 /uL (0-450); Eosinophils Percent Auto 1.3 % (2-4); Hematocrit 42.4 % (41-53); Hemoglobin 14.7 g/dL (13.5-17.5); Lymphocytes Absolute Auto 1300 /uL (1100-4500); Lymphocytes Percent Auto 31.6 % (25-40); Mean Corpuscular HGB Conc 34.7 % (30-36); Mean Corpuscular Hemoglobin 31.3 PG (26-34); Mean Corpuscular Volume 90.3 fL (80-100); Monocytes Absolute Auto 400 /uL (0-900); Monocytes Percent Auto 10.3 % (3-14); Neutrophils Absolute Auto 2300 /uL (1500-7000); Neutrophils Percent Auto 55.8 % (50-75); Platelet Count 192 X10^3/uL (150-400); Red Blood Cell Count 4.69 X10^6/uL (4.5-5.9); Red Cell Distribution Width 13.4 % (11.6-14.8); White Blood Cell Count 4.1 X10^3/uL (4.5-11.0)
[2018-11-19 09:21] LABS: Alanine Aminotransferase 84 IU/L (21-72); Albumin 4.5 g/dL (3.5-5.0); Albumin Globulin Ratio 1.6 (1.0-2.8); Alkaline Phosphatase 88 U/L (38-126); Aspartate Aminotransferase 44 IU/L (17-59); Bilirubin Total 0.5 mg/dL (0.2-1.3); Blood Urea Nitrogen 16 mg/dL (9-20); Calcium 9.5 mg/dL (8.4-10.2); Carbon Dioxide 26 mmol/L (22-32); Chloride 104 mmol/L (98-107); Cholesterol 261 mg/dL (140-199); Estimated Glomerular Filt Rate > 60.0 mL/min (>60); Globulin 2.8 g/dL (1.7-4.1); Glucose 113 mg/dL (70-100); HDL Cholesterol 39 mg/dL (40-60); HEMOLYSIS < 15 (0-50); Potassium 4.1 mmol/L (3.4-5.1); Sodium 140 mmol/L (137-145); Total Protein 7.3 g/dL (6.3-8.2)
[2018-11-19 09:43] LABS: TSH w/ Reflex to FT4 3.05 uIU/mL (0.47-4.68)
[2018-11-19 10:00] LABS: Triglycerides 560 mg/dL (35-150)
== END ==
PROVIDERS: PCP Family Medicine; Visit Provider Family Medicine
DX: E78.1 Pure hyperglyceridemia (principal); E78.2 Mixed hyperlipidemia; Z00.00 Encounter for general adult medical examination without abnormal findings
CPT/HCPCS: 36415; 80053; 80061; 84443; 85025

== ENCOUNTER → 2020-04-13 07:53 | Outpatient (CLI) | payer OTHER, SELFPAY ==
[2020-04-13 08:39] LABS: Add Manual Diff / Slide Review NO; Basophils Absolute Auto 0 /uL (0-100); Basophils Percent Auto 0.8 % (0-2); Eosinophils Absolute Auto 0 /uL (0-450); Eosinophils Percent Auto 1.4 % (2-4); Hematocrit 41.3 % (41-53); Hemoglobin 14.1 g/dL (13.5-17.5); Lymphocytes Absolute Auto 1100 /uL (1100-4500); Lymphocytes Percent Auto 29.7 % (25-40); Mean Corpuscular HGB Conc 34.1 % (30-36); Mean Corpuscular Hemoglobin 31.1 PG (26-34); Mean Corpuscular Volume 91.2 fL (80-100); Monocytes Absolute Auto 500 /uL (0-900); Monocytes Percent Auto 13.2 % (3-14); Neutrophils Absolute Auto 2000 /uL (1500-7000); Neutrophils Percent Auto 54.9 % (50-75); Platelet Count 182 X10^3/uL (150-400); Red Blood Cell Count 4.53 X10^6/uL (4.5-5.9); White Blood Cell Count 3.6 X10^3/uL (4.5-11.0)
[2020-04-13 08:56] LABS: Alanine Aminotransferase 43 IU/L (<50); Albumin 4.4 g/dL (3.5-5.0); Albumin Globulin Ratio 1.5 (1.0-2.8); Alkaline Phosphatase 79 U/L (38-126); Aspartate Aminotransferase 34 IU/L (17-59); BUN Creatinine Ratio 16.7 (6-22); Bilirubin Total 0.6 mg/dL (0.2-1.3); Blood Urea Nitrogen 17 mg/dL (9-20); Calcium 9.5 mg/dL (8.4-10.2); Carbon Dioxide 27 mmol/L (22-32); Chloride 105 mmol/L (98-107); Cholesterol 235 mg/dL (140-199); Estimated Glomerular Filt Rate > 60.0 mL/min (>60); Glucose 118 mg/dL (70-100); HDL Cholesterol 40 mg/dL (40-60); HEMOLYSIS < 15 (0-50); LDL Cholesterol Calculated 131 mg/dL (<100); Potassium 4.2 mmol/L (3.4-5.1); Sodium 141 mmol/L (137-145); Total Protein 7.4 g/dL (6.3-8.2); Triglycerides 320 mg/dL (35-150)
[2020-04-13 09:33] LABS: TSH w/ Reflex to FT4 2.76 uIU/mL (0.47-4.68)
== END ==
PROVIDERS: PCP Family Medicine; Referring Provider Family Medicine; Visit Provider Family Medicine
DX: Z00.00 Encounter for general adult medical examination without abnormal findings (principal); Z12.5 Encounter for screening for malignant neoplasm of prostate; Z13.6 Encounter for screening for cardiovascular disorders; E78.1 Pure hyperglyceridemia; E78.2 Mixed hyperlipidemia
CPT/HCPCS: 36415; 80053; 80061; 84153; 84443; 85025

== ENCOUNTER 2021-07-30 10:36 | Inpatient (IN) | payer OTHER, SELFPAY ==
[2021-07-30] VITALS (23 sets, daily range): BP systolic 139–149; BP diastolic 70–85; PULSE 74–97; RESP 19–37; TEMP 36.2–37.6; O2SAT 92–97; BMI 25.7
--- NOTE | 2021-07-30 11:06 | DI.CT.S_ITS ---
PROCEDURE: CT ANGIO CHEST PE PROTOCOL INDICATIONS: + covid, increased respiratory distress TECHNIQUE: After the administration of intravenous contrast, 2 mm thick sections acquired from the pulmonary apices to the posterior costophrenic angles. 3-dimensional maximum intensity projection (MIP) coronal and sagittal reformats were then acquired through the thorax. For radiation dose reduction, the following was used: automated exposure control, adjustment of mA and/or kV according to patient size. COMPARISON: None. FINDINGS: Image quality: Excellent. Pulmonary arteries: Pulmonary arteries are normal in size, and demonstrate no intraluminal filling defects to suggest central pulmonary embolism. Lungs and pleura: There is moderate diffuse ground-glass and reticulonodular pulmonary density. No pleural effusions or pneumothorax. Central and peripheral airways are patent. Mediastinum: Heart size is normal, without pericardial effusion. Calcification of the coronary vasculature. No mediastinal or hilar adenopathy. Thoracic aorta is normal in caliber and enhancement. Esophagus is normal in caliber, without hiatal hernia. Bones and chest wall: No suspicious bony lesions. Ribs and thoracic spine appear intact throughout. Thyroid gland is grossly unremarkable. No axillary or supraclavicular adenopathy. Abdomen: Visualized portions of the upper abdomen demonstrate diffusely decreased hepatic density. IMPRESSION: 1. No pulmonary embolus. 2. Bilateral pneumonia. 3. Coronary artery disease. 4. Hepatic steatosis. Dictated by: Praveen Draper M.D. on 07/30/2021 at 12:20 Approved by: Praveen Draper M.D. on 07/30/2021 at 12:22
--- NOTE | 2021-07-30 11:13 | ED_ITS ---
HPI - General Adult General Chief complaint: Shortness of Breath/Dyspnea Stated complaint: COVID Time Seen by Provider: 07/30/21 10:45 Source: patient and EMS Mode of arrival: Family Vehicle History of Present Illness HPI narrative: 55-year-old gentleman with hypertension, hyperlipidemia unvaccinated presents on day 8 of COVID infection. His is currently admitted to the hospital with her COVID symptoms and her symptoms started approximately 2 days prior to his. He has been having difficulty eating and sleeping. He has been having significant nonproductive cough, dizziness, body aches, fevers, general abdominal pain but no vomiting or diarrhea. Related Data Home Medications Medication Instructions Recorded Confirmed CA PANTOTHENATE/FOLIC ACID/VIT 1 tab PO Q DAY #0 03/24/13 05/31/20 (MULTIVITAMIN) Previous Rx's Medication Instructions Recorded sildenafil (pulm.hypertension) 20 20 mg PO QDAY #30 tab 04/12/17 mg tablet (Revatio) hydrochlorothiazide 25 mg tablet 25 mg PO DAILY #90 tab 04/13/20 rosuvastatin 20 mg tablet (Crestor) 20 mg PO DAILY #90 tab 05/31/20 alprazolam 0.25 mg tablet 0.25 mg PO DAILY PRN #30 tab 03/29/21 tramadol 50 mg tablet 50 mg PO Q6H PRN #20 tab 04/13/21 labetalol 200 mg tablet See Rx Instructions .ROUTE 04/26/21 .COMPLEX #60 tablet gabapentin 300 mg capsule 900 mg PO TID #810 cap 05/15/21 Allergies Allergy/AdvReac Type Severity Reaction Status Date / Time No Known Drug Allergies Allergy Verified 05/31/20 10:12 Review of Systems Review of Systems Narrative: Remainder of complete review of systems is otherwise unremarkable except for that included in the HPI. Patient History Medical History (Updated 07/30/21 @ 12:36 by Sharon Navarro MD) Anxiety (1999) Asthma (~1970) Cervical spine disease (2009) Chicken pox (1970) CTS (carpal tunnel syndrome) (2005) Depression (1999) Fibromyalgia (2011) GERD (gastroesophageal reflux disease) Hayfever (1965) Hypertension (2012) Pneumonia due to COVID-19 virus Skin tags, multiple acquired (2012) Surgical History Anesthesia History of carpal tunnel repair (2007) History of oral surgery (2013) Family History Child Age: 12 49XXXXY syndrome Father Cancer Lung cancer Colon cancer Grandfather Heart disease High cholesterol Mother Age: 81 Depression Breast cancer Dementia Grandmother Diabetes mellitus Grandmother COPD (chronic obstructive pulmonary disease) Grandfather No problems noted. Social History marital status: Smoking Status: Current every day smoker alcohol intake: current (2+ A DAY ) substance use type: marijuana (MEDICAL ) Smoking Status: Current every day smoker tobacco type: vaping alcohol intake frequency: 3 or more drinks per day Substance Use Type: marijuana Exam Narrative Exam Narrative: General: Acutely ill-appearing, pale and poorly perfused, alert and able to cooperate with exam. Speaking in 2 word sentences despite oxygen saturations on 4 L of oxygen at 94-95% HEENT: Dry mucous membranes, normal sclera with reactive pupils, Neck: No cervical adenopathy supple Respiratory: Lungs are clear to auscultation, no wheezing no rales no rhonchi. Cardiac: Tachycardic but otherwiseRegular rate and rhythm no murmurs no bruits Abdomen: Soft, nontender, good bowel tones, no flank pain Skin: Pale with mottling Neurologic: Globally weak Grossly neurologically intact with no obvious asymmetries or abnormalities Extremities: No trauma, Psych: Cooperative, appropriate insight and affect Initial Vital Signs Initial Vital Signs: Vital Signs Pulse Rate 94 H 07/30/21 10:46 Respiratory Rate 34 H 07/30/21 10:46 Pulse Oximetry 95 07/30/21 10:46 Course Orders Ordered: ED Orders 07/30/21 10:50 Complete Blood Count AUTO DIFF Stat Comprehensive Metabolic Panel Stat Lactate (Lactic Acid) Stat Lipase Stat Magnesium Stat Procalcitonin Stat Troponin I Stat 07/30/21 11:02 Measure peak expiratory flow ONCE RT Consult Eval and Treat Now 07/30/21 11:06 CT angio chest PE protocol Stat Urinalysis and Microscopic Stat 07/30/21 11:23 EKG-12 Lead Stat 07/30/21 11:30 Blood Culture Stat 07/30/21 12:40 Respiratory Panel (Film Array) Stat Discontinued Medications Benzonatate (Benzonatate 100 Mg Capsule) 100 mg PO NOW ONE Stop: 07/30/21 11:06 Last Admin: 07/30/21 11:22 Dose: 100 mg Documented by: SANDRO Dexamethasone (Dexamethasone 10 Mg/Ml Vial) 6 mg IV NOW ONE Stop: 07/30/21 11:06 Last Admin: 07/30/21 11:22 Dose: 6 mg Documented by: SANDRO Sodium Chloride (Normal Saline 0.9%) 1,000 mls @ 1,000 mls/hr IV BOLUS ONE Stop: 07/30/21 12:04 Last Infusion: 07/30/21 12:55 Dose: 1,000 mls/hr Documented by: Admin: 07/30/21 11:22 Dose: 1,000 mls/hr Documented by: SANDRO Sodium Chloride (Normal Saline 0.9%) 1,000 mls @ 1,000 mls/hr IV BOLUS ONE Stop: 07/30/21 13:45 Last Infusion: 07/30/21 14:12 Dose: 0 mls/hr Documented by: Admin: 07/30/21 12:56 Dose: 1,000 mls/hr Documented by: SANDRO Ondansetron HCl (Ondansetron 4 Mg/2 Ml Inj) 4 mg IV NOW ONE Stop: 07/30/21 11:06 Last Admin: 07/30/21 11:24 Dose: 4 mg Documented by: SANDRO Oxycodone/Acetaminophen (Oxycodone/Acetaminophen 5/325 Tablet) 2 tab PO NOW ONE Stop: 07/30/21 12:43 Last Admin: 07/30/21 12:54 Dose: 2 tab Documented by: SANDRO Vital Signs Vital signs: Vital Signs - 8 hr 07/30/21 10:46 07/30/21 10:58 07/30/21 11:00 Temperature 99.6 F Pulse Rate 94 H 94 H 93 H Respiratory Rate 34 H 19 32 H Blood Pressure 139/84 Pulse Oximetry 95 96 96 07/30/21 11:30 07/30/21 12:04 07/30/21 12:30 Temperature Pulse Rate 94 H 97 H 92 H Respiratory Rate 37 H 34 H Blood Pressure Pulse Oximetry 95 95 97 07/30/21 13:00 07/30/21 13:30 07/30/21 14:00 Temperature Pulse Rate 94 H 94 H 92 H Respiratory Rate 22 25 H Blood Pressure Pulse Oximetry 95 92 92 07/30/21 14:30 07/30/21 15:00 07/30/21 15:30 Temperature Pulse Rate 88 82 82 Respiratory Rate 27 H 24 21 Blood Pressure Pulse Oximetry 93 95 95 07/30/21 16:00 07/30/21 16:30 Temperature Pulse Rate 81 79 Respiratory Rate 28 H 24 Blood Pressure Pulse Oximetry 93 93 Medical Decision Making Lab Data Result diagrams: 07/30/21 10:50 07/30/21 10:50 Labs: Lab Results 07/30/21 07/30/21 07/30/21 Range/Units 10:50 10:50 10:50 WBC 4.3 L (4.5-11.0) X10^3/uL RBC 4.77 (4.5-5.9) X10^6/uL Hgb 14.7 (13.5-17.5) g/dL Hct 42.5 (41-53) % MCV 89.2 (80-100) fL MCH 30.9 (26-34) PG MCHC 34.7 (30-36) % RDW 13.3 (11.6-14.8) % Plt Count 158 (150-400) X10^3/uL Neut % (Auto) 84.9 H (50-75) % Lymph % (Auto) 9.7 L (25-40) % [place] % (Auto) 5.2 (3-14) % Eos % (Auto) 0.0 L (2-4) % Baso % (Auto) 0.2 (0-2) % Neut # (Auto) 3600 (0901-2406) /uL Lymph # (Auto) 400 L (0309-6169) /uL [place] # (Auto) 200 (0-900) /uL Eos # (Auto) 0 (0-450) /uL Baso # (Auto) 0 (0-100) /uL Sodium 130 L (137-145) mmol/L Potassium 3.8 (3.4-5.1) mmol/L Chloride 98 (98-107) mmol/L Carbon Dioxide 26 (22-32) mmol/L BUN 26 H (9-20) mg/dL Creatinine 1.25 (0.66-1.25) mg/dL Estimated GFR 60.0 (>60) mL/min BUN/Creatinine Ratio 20.8 (6-22) Glucose 105 H (70-100) mg/dL Lactate 1.1 (0.7-2.1) mmol/L Calcium 8.6 (8.4-10.2) mg/dL Magnesium (1.6-2.3) mg/dL Total Bilirubin 1.1 (0.2-1.3) mg/dL AST 141 H (17-59) IU/L ALT 82 H (<50) IU/L Alkaline Phosphatase 121 (38-126) U/L Troponin I (0.01-0.034) ng/mL Total Protein 7.0 (6.3-8.2) g/dL Albumin 3.8 (3.5-5.0) g/dL Globulin 3.2 (1.7-4.1) g/dL Albumin/Globulin Ratio 1.2 (1.0-2.8) Lipase (23-300) U/L Procalcitonin (<0.5) ng/mL Chlamy pneumoniae PCR (Not Detect) Adenovirus (PCR) (Not Detect) B. pertussis DNA (PCR) (Not Detecte) B.parapertussis DNA PCR (Not Detecte) Coronavirus OC43 (PCR) (Not Detect) Coronavirus HKU1 (PCR) (Not Detect) Coronavirus 229E (PCR) (Not Detect) SARS-CoV-2 (PCR) (Not Detecte) Coronavirus NL63 (PCR) (Not Detect) Human Metapneumovir PCR (Not Detect) Influenza Type A (PCR) (Not Detect) Influenza Type B (PCR) (Not Detect) M. pneumoniae (PCR) (Not Detect) Parainfluenza 1 (PCR) (Not Detect) Parainfluenza 2 (PCR) (Not Detect) Parainfluenza 3 (PCR) (Not Detect) Parainfluenza 4 (PCR) (Not Detect) RSV (PCR) (Not Detect) Entero/Rhino (PCR) (Not Detect) 07/30/21 07/30/21 Range/Units 10:50 12:40 WBC (4.5-11.0) X10^3/uL RBC (4.5-5.9) X10^6/uL Hgb (13.5-17.5) g/dL Hct (41-53) % MCV (80-100) fL MCH (26-34) PG MCHC (30-36) % RDW (11.6-14.8) % Plt Count (150-400) X10^3/uL Neut % (Auto) (50-75) % Lymph % (Auto) (25-40) % [place] % (Auto) (3-14) % Eos % (Auto) (2-4) % Baso % (Auto) (0-2) % Neut # (Auto) (4421-2449) /uL Lymph # (Auto) (7068-3217) /uL [place] # (Auto) (0-900) /uL Eos # (Auto) (0-450) /uL Baso # (Auto) (0-100) /uL Sodium (137-145) mmol/L Potassium (3.4-5.1) mmol/L Chloride (98-107) mmol/L Carbon Dioxide (22-32) mmol/L BUN (9-20) mg/dL Creatinine (0.66-1.25) mg/dL Estimated GFR (>60) mL/min BUN/Creatinine Ratio (6-22) Glucose (70-100) mg/dL Lactate (0.7-2.1) mmol/L Calcium (8.4-10.2) mg/dL Magnesium 2.6 H (1.6-2.3) mg/dL Total Bilirubin (0.2-1.3) mg/dL AST (17-59) IU/L ALT (<50) IU/L Alkaline Phosphatase (38-126) U/L Troponin I < 0.012 (0.01-0.034) ng/mL Total Protein (6.3-8.2) g/dL Albumin (3.5-5.0) g/dL Globulin (1.7-4.1) g/dL Albumin/Globulin Ratio (1.0-2.8) Lipase 437 H (23-300) U/L Procalcitonin 0.23 (<0.5) ng/mL Chlamy pneumoniae PCR Not detected (Not Detect) Adenovirus (PCR) Not detected (Not Detect) B. pertussis DNA (PCR) Not detected (Not Detecte) B.parapertussis DNA PCR Not detected (Not Detecte) Coronavirus OC43 (PCR) Not detected (Not Detect) Coronavirus HKU1 (PCR) Not detected (Not Detect) Coronavirus 229E (PCR) Not detected (Not Detect) SARS-CoV-2 (PCR) Detected H (Not Detecte) Coronavirus NL63 (PCR) Not detected (Not Detect) Human Metapneumovir PCR Not detected (Not Detect) Influenza Type A (PCR) Not detected (Not Detect) Influenza Type B (PCR) Not detected (Not Detect) M. pneumoniae (PCR) Not detected (Not Detect) Parainfluenza 1 (PCR) Not detected (Not Detect) Parainfluenza 2 (PCR) Not detected (Not Detect) Parainfluenza 3 (PCR) Not detected (Not Detect) Parainfluenza 4 (PCR) Not detected (Not Detect) RSV (PCR) Not detected (Not Detect) Entero/Rhino (PCR) Not detected (Not Detect) Imaging Data CT PE study: Radiologist's Impression: FINDINGS:? Image quality:? Excellent.? ? Pulmonary arteries:? Pulmonary arteries are normal in size, and demonstrate no intraluminal filling defects to suggest central pulmonary embolism.? ? Lungs and pleura:? There is moderate diffuse ground-glass and reticulonodular pulmonary density.? No pleural effusions or pneumothorax.? Central and peripheral airways are patent.? ? Mediastinum:? Heart size is normal, without pericardial effusion.? Calcification of the coronary vasculature.? No mediastinal or hilar adenopathy.? Thoracic aorta is normal in caliber and enhancement.? Esophagus is normal in caliber, without hiatal hernia.? ? Bones and chest wall:? No suspicious bony lesions.? Ribs and thoracic spine appear intact throughout.? Thyroid gland is grossly unremarkable.? No axillary or supraclavicular adenopathy.? ? Abdomen:? Visualized portions of the upper abdomen demonstrate diffusely decreased hepatic density. ? IMPRESSION:? 1. No pulmonary embolus. 2. Bilateral pneumonia. 3. Coronary artery disease. 4. Hepatic steatosis.? ? ? Dictated by: Praveen Draper M.D. on 07/30/2021 at 12:20 ? ? ECG Data Interpretation: Sinus rhythm at a rate of 99 Normal intervals, normal axis No acute ischemic changes MDM Narrative Medical decision making narrative: 55-year-old gentleman on day 8 of COVID symptoms. Oxygen saturations are doing well with 4 L of oxygen however he appears much clinically worse than that with significant tachypnea inability to speak more than 2 words, dramatic cough and overall mottling. May be that he is simply significantly dehydrated, he states he has not had anything to eat or drink over the last number of days because he has otherwise been so ill. Possibility of a pulmonary embolism is also entertained. Extended workup is ordered, fluid resuscitation and PE study. He has responded nicely to fluid resuscitation. CT scan shows fairly classic COVID bilateral pneumonia without evidence of pericardial effusion, pleural effusion or pulmonary embolism. 1240 findings are reviewed with patient. Told him that we are looking for a bed and we are considering placing him in the same room as his due to crisis conditions. He actually thought that would be a fabulous idea. His saturations are 96-97% on 4 L. Continue to complain of a headache. Will try to Percocet to see if this helps and helps to suppress his cough which likely is exacerbating his headache as well 530 care is reviewed with the hospitalist service after bed in our hospital became available. He is safe for transfer to the floor. Discharge Plan Departure Patient Disposition: Admitted As Inpatient Clinical Impression: Pneumonia due to 2019 novel coronavirus Respiratory failure Qualifiers: Chronicity: acute Respiratory failure complication: hypoxia Qualified Code(s): J96.01 - Acute respiratory failure with hypoxia Admit Date/Time: 07/30/21 17:25 Admit Provider: Tete Ahn
[2021-07-30 11:16] LABS: Add Manual Diff / Slide Review NO; Basophils Absolute Auto 0 /uL (0-100); Basophils Percent Auto 0.2 % (0-2); Eosinophils Absolute Auto 0 /uL (0-450); Hematocrit 42.5 % (41-53); Hemoglobin 14.7 g/dL (13.5-17.5); Lymphocytes Absolute Auto 400 /uL (1100-4500); Lymphocytes Percent Auto 9.7 % (25-40); Mean Corpuscular HGB Conc 34.7 % (30-36); Mean Corpuscular Hemoglobin 30.9 PG (26-34); Mean Corpuscular Volume 89.2 fL (80-100); Monocytes Absolute Auto 200 /uL (0-900); Monocytes Percent Auto 5.2 % (3-14); Neutrophils Absolute Auto 3600 /uL (1500-7000); Neutrophils Percent Auto 84.9 % (50-75); Platelet Count 158 X10^3/uL (150-400); Red Blood Cell Count 4.77 X10^6/uL (4.5-5.9); Red Cell Distribution Width 13.3 % (11.6-14.8); White Blood Cell Count 4.3 X10^3/uL (4.5-11.0)
[2021-07-30] MEDS: SODIUM CHLORIDE 0.9% 1,000 ML 1000 ML IV ×2 (11:22→12:56)
[2021-07-30] MEDS: DEXAMETHASONE 10 MG/ML VIAL 6 MG IV (11:22)
[2021-07-30] MEDS: BENZONATATE 100 MG CAPSULE PO (11:22)
[2021-07-30 11:24] LABS: Lactate (Lactic Acid) 1.1 mmol/L (0.7-2.1)
[2021-07-30] MEDS: ONDANSETRON 4 MG/2 ML INJ IV (11:24)
[2021-07-30 11:25] LABS: Alanine Aminotransferase 82 IU/L (<50); Albumin 3.8 g/dL (3.5-5.0); Albumin Globulin Ratio 1.2 (1.0-2.8); Alkaline Phosphatase 121 U/L (38-126); Aspartate Aminotransferase 141 IU/L (17-59); BUN Creatinine Ratio 20.8 (6-22); Bilirubin Total 1.1 mg/dL (0.2-1.3); Blood Urea Nitrogen 26 mg/dL (9-20); Calcium 8.6 mg/dL (8.4-10.2); Carbon Dioxide 26 mmol/L (22-32); Chloride 98 mmol/L (98-107); Globulin 3.2 g/dL (1.7-4.1); Glucose 105 mg/dL (70-100); HEMOLYSIS < 15 (0-50); Lipase 437 U/L (23-300); Magnesium 2.6 mg/dL (1.6-2.3); Potassium 3.8 mmol/L (3.4-5.1); Sodium 130 mmol/L (137-145)
[2021-07-30 11:37] LABS: Troponin I < 0.012 ng/mL (0.01-0.034)
[2021-07-30 11:41] LABS: Procalcitonin 0.23 ng/mL (<0.5)
[2021-07-30] MEDS: OXYCODONE/ACETAMINOPHEN 5/325 TABLET 2 TAB PO (12:54)
[2021-07-30 15:27] LABS: Adenovirus Not Detected (Not Detect); B. parapertussis Not Detected (Not Detecte); Bordetella pertussis Not Detected (Not Detecte); Chlamydophila pneumoniae Not Detected (Not Detect); Coronavirus 229E Not Detected (Not Detect); Coronavirus HKU1 Not Detected (Not Detect); Coronavirus NL 63 Not Detected (Not Detect); Coronavirus OC43 Not Detected (Not Detect); Human Metapneumovirus Not Detected (Not Detect); Human Rhinovirus/Enterovirus Not Detected (Not Detect); Influenza A Not Detected (Not Detect); Influenza B Not Detected (Not Detect); Mycoplasma pneumoniae Not Detected (Not Detect); Parainfluenza Virus 1 Not Detected (Not Detect); Parainfluenza Virus 2 Not Detected (Not Detect); Parainfluenza Virus 3 Not Detected (Not Detect); Parainfluenza Virus 4 Not Detected (Not Detect); Respiratory Syncytial Virus Not Detected (Not Detect)
[2021-07-30 15:29] LABS: SARS- CoV-2 Detected (Not Detecte)
[2021-07-30] MEDS: LABETALOL 100 MG TABLET 200 MG PO (20:25)
[2021-07-30] MEDS: ACETAMINOPHEN 325 MG TABLET 650 MG PO (20:25)
[2021-07-30] MEDS: GABAPENTIN 300 MG CAPSULE 900 MG PO (20:26)
[2021-07-30] MEDS: SODIUM CHLORIDE 0.9% 1,000 ML 100 ML IV (20:26)
[2021-07-31] VITALS (26 sets, daily range): BP systolic 123–151; BP diastolic 63–83; PULSE 62–79; RESP 20–34; TEMP 36.2–36.9; O2SAT 79–100
[2021-07-31] MEDS: BENZONATATE 100 MG CAPSULE PO ×2 (05:01→08:56)
[2021-07-31] MEDS: HYDROCODONE/ACET 5/325 TABLET 1 TAB PO (05:01)
[2021-07-31 05:56] LABS: Lipase 358 U/L (23-300)
[2021-07-31 05:57] LABS: Alanine Aminotransferase 79 IU/L (<50); Albumin 3.1 g/dL (3.5-5.0); Alkaline Phosphatase 100 U/L (38-126); BUN Creatinine Ratio 23.6 (6-22); Bilirubin Total 0.8 mg/dL (0.2-1.3); Blood Urea Nitrogen 21 mg/dL (9-20); Calcium 7.9 mg/dL (8.4-10.2); Carbon Dioxide 25 mmol/L (22-32); Chloride 105 mmol/L (98-107); Estimated Glomerular Filt Rate > 60.0 mL/min (>60); Globulin 3.1 g/dL (1.7-4.1); Glucose 143 mg/dL (70-100); Sodium 133 mmol/L (137-145); Total Protein 6.2 g/dL (6.3-8.2)
[2021-07-31 06:02] LABS: HEMOLYSIS 58 (0-50)
[2021-07-31 06:03] LABS: Potassium 4.3 mmol/L (3.4-5.1)
[2021-07-31 06:04] LABS: Aspartate Aminotransferase 123 IU/L (17-59)
[2021-07-31 06:23] LABS: Add Manual Diff / Slide Review NO; Basophils Absolute Auto 0 /uL (0-100); Basophils Percent Auto 0.2 % (0-2); Eosinophils Absolute Auto 0 /uL (0-450); Eosinophils Percent Auto 0.1 % (2-4); Hematocrit 39.6 % (41-53); Hemoglobin 13.7 g/dL (13.5-17.5); Lymphocytes Absolute Auto 900 /uL (1100-4500); Lymphocytes Percent Auto 12.1 % (25-40); Mean Corpuscular HGB Conc 34.5 % (30-36); Mean Corpuscular Hemoglobin 30.9 PG (26-34); Mean Corpuscular Volume 89.4 fL (80-100); Monocytes Absolute Auto 600 /uL (0-900); Monocytes Percent Auto 7.5 % (3-14); Neutrophils Absolute Auto 5900 /uL (1500-7000); Neutrophils Percent Auto 80.1 % (50-75); Platelet Count 168 X10^3/uL (150-400); Red Blood Cell Count 4.43 X10^6/uL (4.5-5.9); Red Cell Distribution Width 13.5 % (11.6-14.8); White Blood Cell Count 7.4 X10^3/uL (4.5-11.0)
[2021-07-31] MEDS: SODIUM CHLORIDE 0.9% 1,000 ML 100 ML IV (06:34)
--- NOTE | 2021-07-31 06:53 | P.HP_ITS ---
History of Present Illness History of Present Illness Date Patient Seen: 07/31/21 Time Patient Seen: 06:53 Chief complaint: COVID Narrative: 55-year-old male with hypertension hyperlipidemia prevents with respiratory distress and shortness of breath previously diagnosed 8 days ago with COVID which is now progressed to pneumonia. Patient is unvaccinated. His also has COVID. She started with symptoms 2 days before he did. His symptoms are not getting worse. She has been in the hospital for 3 days. He comes into the emergency do department complaining of shortness of breath respiratory distress significant cough. Patient states he is having difficulty eating and sleeping for the last 2-3 days. He has not been able to hydrate well. He is feeling dizzy lightheaded. He is having body aches fevers and chills. Patient having some abdominal pain and discomfort. But no diarrhea. Patient does not have a history of significant lung disease although he does have a history of asthma. He is not a smoker. Does have a prescription for albuterol inhaler which she uses infrequently. Emergency Department evaluation showed on admission he was acutely ill speaking in 2 word sentences on 4 L of oxygen at 94-95%. Laboratory testing revealed a mildly low white blood cell count normal hemoglobin and hematocrit sodium mildly low at 133 normal kidney function glucose mildly elevated at 143 mild liver enzyme elevation protein levels are low. After hydration in the emergency department patient began feeling a little bit better. But still required 4 L of oxygen to maintain his saturations. Patient was then admitted to the hospital Patient History Medical History (Updated 07/30/21 @ 12:36 by Sharon Navarro MD) Anxiety (1999) Asthma (~1970) Cervical spine disease (2009) Chicken pox (1970) CTS (carpal tunnel syndrome) (2005) Depression (1999) Fibromyalgia (2011) GERD (gastroesophageal reflux disease) Hayfever (1965) Hypertension (2012) Pneumonia due to COVID-19 virus Skin tags, multiple acquired (2012) Surgical History Anesthesia History of carpal tunnel repair (2007) History of oral surgery (2012) Family & Social History Family History Child Age: 12 49XXXXY syndrome Father Cancer Lung cancer Colon cancer Grandfather Heart disease High cholesterol Mother Age: 81 Depression Breast cancer Dementia Grandmother Diabetes mellitus Grandmother COPD (chronic obstructive pulmonary disease) Grandfather No problems noted. Safety & Behavioral: Feels Safe in Current Yes Environment Been Physically Hurt or No Threatened By a Person Tobacco & Substance use: Smoking Status Current every day smoker alcohol intake current alcohol intake frequency 3 or more drinks per day Substance Use Type marijuana Meds Home Medications and Allergies Home Medications Medication Instructions Recorded Confirmed Type alprazolam 0.25 mg tablet 0.25 mg PO DAILY PRN #30 tab 03/29/21 07/30/21 Rx tramadol 50 mg tablet 50 mg PO Q6H PRN #20 tab 04/13/21 07/30/21 Rx labetalol 200 mg tablet See Rx Instructions .ROUTE 04/26/21 07/30/21 Rx .COMPLEX #60 tablet gabapentin 300 mg capsule 900 mg PO TID #810 cap 05/15/21 07/30/21 Rx Allergies Allergy/AdvReac Type Severity Reaction Status Date / Time No Known Drug Allergies Allergy Verified 05/31/20 10:12 Exam Vital Signs (past 8 hours): - 07/31/21 00:10 07/31/21 04:40 Temperature 97.6 F 97.2 F L Pulse Rate 73 71 Respiratory Rate 20 22 Blood Pressure 125/67 123/66 Pulse Oximetry 93 91 Oxygen Delivery Method High Flow Nasal Cannula Oxygen Flow Rate 10 Narrative Exam Narrative: Gen.: Alert good historian mild increased work of breathing anxious HEENT: Pupils equal round and reactive or mucosa is dry neck is supple nasal cannula oxygen is placed. Cardio: S1-S2 regular rate and rhythm no murmurs appreciated. Respiratory: Lungs are clear no wheezes or crackles decreased breath sounds at bases. Abdomen: Soft nontender Extremities: Warm and dry and perfused Neurologic: Grossly intact. Objective Labs Result Diagrams: 07/30/21 10:50 07/31/21 05:05 Labs: Laboratory Results - last 24 hr 07/30/21 07/30/21 07/30/21 10:50 10:50 10:50 WBC 4.3 L RBC 4.77 Hgb 14.7 Hct 42.5 MCV 89.2 MCH 30.9 MCHC 34.7 RDW 13.3 Plt Count 158 Neut % (Auto) 84.9 H Lymph % (Auto) 9.7 L [place] % (Auto) 5.2 Eos % (Auto) 0.0 L Baso % (Auto) 0.2 Neut # (Auto) 3600 Lymph # (Auto) 400 L [place] # (Auto) 200 Eos # (Auto) 0 Baso # (Auto) 0 Sodium 130 L Potassium 3.8 Chloride 98 Carbon Dioxide 26 BUN 26 H Creatinine 1.25 Estimated GFR 60.0 BUN/Creatinine Ratio 20.8 Glucose 105 H Lactate 1.1 Calcium 8.6 Magnesium Total Bilirubin 1.1 AST 141 H ALT 82 H Alkaline Phosphatase 121 Troponin I Total Protein 7.0 Albumin 3.8 Globulin 3.2 Albumin/Globulin Ratio 1.2 Lipase Procalcitonin Chlamy pneumoniae PCR Adenovirus (PCR) B. pertussis DNA (PCR) B.parapertussis DNA PCR Coronavirus OC43 (PCR) Coronavirus HKU1 (PCR) Coronavirus 229E (PCR) SARS-CoV-2 (PCR) Coronavirus NL63 (PCR) Human Metapneumovir PCR Influenza Type A (PCR) Influenza Type B (PCR) M. pneumoniae (PCR) Parainfluenza 1 (PCR) Parainfluenza 2 (PCR) Parainfluenza 3 (PCR) Parainfluenza 4 (PCR) RSV (PCR) Entero/Rhino (PCR) 07/30/21 07/30/21 07/31/21 10:50 12:40 05:05 WBC RBC Hgb Hct MCV MCH MCHC RDW Plt Count Neut % (Auto) Lymph % (Auto) [place] % (Auto) Eos % (Auto) Baso % (Auto) Neut # (Auto) Lymph # (Auto) [place] # (Auto) Eos # (Auto) Baso # (Auto) Sodium 133 L Potassium 4.3 Chloride 105 Carbon Dioxide 25 BUN 21 H Creatinine 0.89 Estimated GFR > 60.0 BUN/Creatinine Ratio 23.6 H Glucose 143 H Lactate Calcium 7.9 L Magnesium 2.6 H Total Bilirubin 0.8 AST 123 H ALT 79 H Alkaline Phosphatase 100 Troponin I < 0.012 Total Protein 6.2 L Albumin 3.1 L Globulin 3.1 Albumin/Globulin Ratio 1.0 Lipase 437 H Procalcitonin 0.23 Chlamy pneumoniae PCR Not detected Adenovirus (PCR) Not detected B. pertussis DNA (PCR) Not detected B.parapertussis DNA PCR Not detected Coronavirus OC43 (PCR) Not detected Coronavirus HKU1 (PCR) Not detected Coronavirus 229E (PCR) Not detected SARS-CoV-2 (PCR) Detected H Coronavirus NL63 (PCR) Not detected Human Metapneumovir PCR Not detected Influenza Type A (PCR) Not detected Influenza Type B (PCR) Not detected M. pneumoniae (PCR) Not detected Parainfluenza 1 (PCR) Not detected Parainfluenza 2 (PCR) Not detected Parainfluenza 3 (PCR) Not detected Parainfluenza 4 (PCR) Not detected RSV (PCR) Not detected Entero/Rhino (PCR) Not detected 07/31/21 05:05 WBC RBC Hgb Hct MCV MCH MCHC RDW Plt Count Neut % (Auto) Lymph % (Auto) [place] % (Auto) Eos % (Auto) Baso % (Auto) Neut # (Auto) Lymph # (Auto) [place] # (Auto) Eos # (Auto) Baso # (Auto) Sodium Potassium Chloride Carbon Dioxide BUN Creatinine Estimated GFR BUN/Creatinine Ratio Glucose Lactate Calcium Magnesium Total Bilirubin AST ALT Alkaline Phosphatase Troponin I Total Protein Albumin Globulin Albumin/Globulin Ratio Lipase 358 H Procalcitonin Chlamy pneumoniae PCR Adenovirus (PCR) B. pertussis DNA (PCR) B.parapertussis DNA PCR Coronavirus OC43 (PCR) Coronavirus HKU1 (PCR) Coronavirus 229E (PCR) SARS-CoV-2 (PCR) Coronavirus NL63 (PCR) Human Metapneumovir PCR Influenza Type A (PCR) Influenza Type B (PCR) M. pneumoniae (PCR) Parainfluenza 1 (PCR) Parainfluenza 2 (PCR) Parainfluenza 3 (PCR) Parainfluenza 4 (PCR) RSV (PCR) Entero/Rhino (PCR) Assessment & Plan Assessment & Plan narrative: COVID-19 pneumonia with acute respiratory failure Patient will be admitted to the hospital with a nasal cannula oxygen to support O2 sats between 90 and 93%. Patient will be given dexamethasone IV 6 mg daily and remdesivir per [facility] protocol for the treatment of COVID pneumo rowan. Patient was given a fluid bolus in the emergency department. Will Hep- Lock his IV. Will check a LDH ferritin CRP make sure there is nothing else concerning going along. Patient had a CT scan of his chest done in the emergency room which shows bilateral pulmonary infiltrates and no pulmonary emboli. At this point his oxygen saturation has remained stable. With nasal cannula oxygen. He is a full code. Dehydration. Patient had dehydration on admission to the hospital was given some IV fluids. He is feeling much better. To the treatment protocol of COVJUS. Will hold off on IV fluids at this point as he is doing a little bit better orally and continue to monitor and provide fluid boluses as needed put him Transaminitis. Patient has a history of non alcoholic fatty liver disease is liver enzymes are elevated today. Will continue to monitor closely with his current medications that he is on. Essential hypertension. Patient on labetalol 200 mg twice daily. Will continue with his medication while he is here in the hospital. Generalized anxiety. Anxiety worsened due to recent COVID pneumonia. Patient intermittently takes alprazolam at home. Will go ahead and provide this why he is here in the hospital. DVT prophylaxis with Lovenox per protocol. Code status patient is a full code. Disposition and plan. Patient with acute respiratory failure acute dehydration and transaminitis due to COVID pneumonia. Anticipated length of hospital stay greater than 24 hours Time Spent With Patient Critical Care time: I spent a total of [] minutes of critical care time on this patient's care toda y; this time is exclusive of procedural time.
[2021-07-31] MEDS: ENOXAPARIN 40 MG/0.4 ML SYRINGE SUBCUT (08:52)
[2021-07-31] MEDS: GABAPENTIN 300 MG CAPSULE 900 MG PO ×3 (08:52→20:42)
[2021-07-31] MEDS: DEXAMETHASONE 10 MG/ML VIAL 6 MG IV (08:52)
[2021-07-31] MEDS: LABETALOL 100 MG TABLET 200 MG PO ×2 (08:53→20:45)
[2021-07-31] MEDS: TRAMADOL 50 MG TABLET PO (08:56)
[2021-07-31] MEDS: REMDESIVIR 200 MG in SODIUM CHLORIDE 0.9% 210 ML 250 ML IV (10:26)
[2021-07-31 11:46] LABS: C-Reactive Protein Quant 7.5 mg/dL (<1.0)
[2021-07-31 12:17] LABS: INR 1.1 (0.9-1.3); Prothrombin Time 12.7 SECONDS (10.1-12.7)
[2021-07-31 12:22] LABS: Lactate Dehydrogenase 2160 U/L (313-618)
[2021-07-31] MEDS: ALBUTEROL/IPRATROPIUM 3 ML AMPUL INH (12:30)
[2021-07-31 13:03] LABS: Ferritin 3870 ng/mL (18-464)
--- NOTE | 2021-07-31 13:04 | PM.PN.1 ---
Subjective Subjective Date Patient Seen: 07/31/21 Time Patient Seen: 13:04 Interval history: Transfer note Patient seen and evaluated this afternoon. Patient on 15 L nasal cannula O2 sats mid 80s. Tachypneic. Discussed transfer with patient to ICU. Bed is available. Patient had a coughing episode event with shortness of breath and feeling dizzy. RT evaluated and treated patient with increased oxygen nebulizer which did not help. Blood pressure pulse stable. Exam Vital Signs (past 8 hours): - 07/31/21 08:50 07/31/21 08:53 07/31/21 12:00 Temperature 97.3 F L Pulse Rate 66 Respiratory Rate 22 Blood Pressure 123/67 123/67 Pulse Oximetry 88 L 79 L 07/31/21 12:21 Temperature Pulse Rate Respiratory Rate Blood Pressure Pulse Oximetry 83 L Oxygen Delivery Method High Flow Nasal Cannula Oxygen Flow Rate 10 Narrative Exam Narrative: General: Alert increased work of breathing HEENT pupils equal round and reactive oral mucosa is moist Cardio S1-S2 regular rate and rhythm respiratory increased work of breathing. Breath sounds are diminished. Abdomen soft nontender Extremities warm dry perfused Objective Labs Result Diagrams: 07/31/21 05:05 07/31/21 05:05 Labs: Laboratory Results - last 24 hr 07/30/21 07/31/21 07/31/21 12:40 05:05 05:05 WBC 7.4 D RBC 4.43 L Hgb 13.7 Hct 39.6 L MCV 89.4 MCH 30.9 MCHC 34.5 RDW 13.5 Plt Count 168 Neut % (Auto) 80.1 H Lymph % (Auto) 12.1 L [place] % (Auto) 7.5 Eos % (Auto) 0.1 L Baso % (Auto) 0.2 Neut # (Auto) 5900 Lymph # (Auto) 900 L [place] # (Auto) 600 Eos # (Auto) 0 Baso # (Auto) 0 PT INR Sodium 133 L Potassium 4.3 Chloride 105 Carbon Dioxide 25 BUN 21 H Creatinine 0.89 Estimated GFR > 60.0 BUN/Creatinine Ratio 23.6 H Glucose 143 H Calcium 7.9 L Ferritin Total Bilirubin 0.8 AST 123 H ALT 79 H Alkaline Phosphatase 100 Lactate Dehydrogenase C-Reactive Protein Total Protein 6.2 L Albumin 3.1 L Globulin 3.1 Albumin/Globulin Ratio 1.0 Lipase Chlamy pneumoniae PCR Not detected Adenovirus (PCR) Not detected B. pertussis DNA (PCR) Not detected B.parapertussis DNA PCR Not detected Coronavirus OC43 (PCR) Not detected Coronavirus HKU1 (PCR) Not detected Coronavirus 229E (PCR) Not detected SARS-CoV-2 (PCR) Detected H Coronavirus NL63 (PCR) Not detected Human Metapneumovir PCR Not detected Influenza Type A (PCR) Not detected Influenza Type B (PCR) Not detected M. pneumoniae (PCR) Not detected Parainfluenza 1 (PCR) Not detected Parainfluenza 2 (PCR) Not detected Parainfluenza 3 (PCR) Not detected Parainfluenza 4 (PCR) Not detected RSV (PCR) Not detected Entero/Rhino (PCR) Not detected 07/31/21 07/31/21 07/31/21 05:05 11:32 11:38 WBC RBC Hgb Hct MCV MCH MCHC RDW Plt Count Neut % (Auto) Lymph % (Auto) [place] % (Auto) Eos % (Auto) Baso % (Auto) Neut # (Auto) Lymph # (Auto) [place] # (Auto) Eos # (Auto) Baso # (Auto) PT 12.7 INR 1.1 Sodium Potassium Chloride Carbon Dioxide BUN Creatinine Estimated GFR BUN/Creatinine Ratio Glucose Calcium Ferritin 3870 H Total Bilirubin AST ALT Alkaline Phosphatase Lactate Dehydrogenase 2160 H C-Reactive Protein 7.5 H Total Protein Albumin Globulin Albumin/Globulin Ratio Lipase 358 H Chlamy pneumoniae PCR Adenovirus (PCR) B. pertussis DNA (PCR) B.parapertussis DNA PCR Coronavirus OC43 (PCR) Coronavirus HKU1 (PCR) Coronavirus 229E (PCR) SARS-CoV-2 (PCR) Coronavirus NL63 (PCR) Human Metapneumovir PCR Influenza Type A (PCR) Influenza Type B (PCR) M. pneumoniae (PCR) Parainfluenza 1 (PCR) Parainfluenza 2 (PCR) Parainfluenza 3 (PCR) Parainfluenza 4 (PCR) RSV (PCR) Entero/Rhino (PCR) [facility] Medical History (Updated 07/30/21 @ 12:36 by Sharon Navarro MD) Anxiety (1999) Asthma (~1970) Cervical spine disease (2009) Chicken pox (1970) CTS (carpal tunnel syndrome) (2005) Depression (1999) Fibromyalgia (2011) GERD (gastroesophageal reflux disease) Hayfever (1965) Hypertension (2013) Pneumonia due to COVID-19 virus Skin tags, multiple acquired (2013) Surgical History Anesthesia History of carpal tunnel repair (2007) History of oral surgery (2013) Family History Child Age: 12 49XXXXY syndrome Father Cancer Lung cancer Colon cancer Grandfather Heart disease High cholesterol Mother Age: 81 Depression Breast cancer Dementia Grandmother Diabetes mellitus Grandmother COPD (chronic obstructive pulmonary disease) Grandfather No problems noted. Social History marital status: Smoking Status: Current every day smoker alcohol intake: current substance use type: marijuana (MEDICAL ) Assessment & Plan Assessment and plan (1) Pneumonia due to 2019 novel coronavirus: Status: Acute (2) Respiratory failure: Qualifiers: Chronicity: acute Respiratory failure complication: hypoxia Qualified Code(s): J96.01 - Acute respiratory failure with hypoxia Status: Acute Plan COVID pneumonia with acute respiratory failure despite floor care patient is continued to become hypoxic and desaturate transfer to ICU for ICU level care. Plan consult tele float tender Heated high-flow nasal cannula ABG Continue remdesivir dexamethasone start barcitiniab. Placement of double-lumen PICC line Anesthesia made aware Time Spent With Patient Critical Care time: I spent a total of [] minutes of critical care time on this patient's care today; this time is exclusive of procedural time.
--- NOTE | 2021-07-31 13:28 | PC.NURSE ---
Pt continuing to struggle with work of breathing. O2 sat 79 on 10L then up to 83% on 10L- RT called and is in with Pt. Dr. Durán contacted and Pt changed to ICU status for heated hi freda O2. Spouse and Pt switched rooms from 230-222 respectively. PICC line ordered and is presently being placed. All belongings transferred to each Pt room.
[2021-07-31] MEDS: LORazepam 2 MG/ML INJ 1 MG IV (13:43)
--- NOTE | 2021-07-31 13:55 | DI.RAD.S_ITS ---
PROCEDURE: XR CHEST 1V INDICATIONS: picc placement TECHNIQUE: One view of the chest was acquired. COMPARISON: [facility], , CHEST 2 VIEW, 07/03/2011, 9:37. FINDINGS: Surgical changes and devices: New right PICC line tip projects in the region of the cavoatrial junction Lungs and pleura: Lung volumes are low. There are bilateral alveolar opacities in the periphery. No pneumothorax or pleural effusion. Mediastinum: Mediastinal contours appear normal. Heart size is normal. Bones and chest wall: No suspicious bony lesions. Overlying soft tissues appear unremarkable. IMPRESSION: 1. Satisfactory position of right PICC line. 2. Bilateral alveolar opacities suspicious for viral pneumonia. Dictated by: Meghann Neal M.D. on 07/31/2021 at 14:29 Approved by: Meghann Neal M.D. on 07/31/2021 at 14:30
[2021-07-31 15:26] LABS: pH ABG 7.45 (7.35-7.45)
[2021-07-31 15:27] LABS: HCO3 ABG 19 mmol/L (22-26); Oxygen Saturation ABG 98 % (95-100); PO2 ABG 93 mmHg (80-100); TCO2 ABG 20 mmol/L (21-31)
[2021-07-31 15:28] LABS: Fractionated Inspired Oxygen 100
[2021-07-31 15:29] LABS: PCO2 ABG 26.9 mmHg (35-45)
--- NOTE | 2021-07-31 15:38 | CM.DANOTE ---
DCP Brief Assessment Note Patient is a 55 yo male who was admitted on 07/30/21 for COVID+ complications. Pt has REG PPO for insurance and his PCP is Dr. Goyo Durán. EMR was reviewed. Per MD, pt unvaccinated for COVID and tested positive a few days ago and had increased symptoms and admitted for COVID+pneumonia and acute dehydration. Pt moved to ICU due to now requiring HHF 10LO2. Pt resides in [place] with spouse, who is also admitted for COVID symptoms but now improving, and pt is independent at baseline with ADL's and works. SW attempted to call pt on room phone but being moved to ICU room and due to triage needs no assessment able to be completed with pt today. Plan: SW to follow for d/c assessment with pt tomorrow as both pt and spouse admitted for COVID symptoms towards determining d/c planning needs. NATE Irizarry
[2021-07-31] MEDS: BENZONATATE 100 MG CAPSULE 200 MG PO ×2 (15:49→20:42)
[2021-07-31] MEDS: OXYCODONE/ACETAMINOPHEN 5/325 TABLET 1 TAB PO (15:49)
[2021-07-31] MEDS: dexmedeTOMIDine in 0.9 % NaCL 400 MCG/100 ML PLAST..BAG IV (15:50)
[2021-07-31] MEDS: BARICITINIB 2 MG TABLET 4 MG PO (16:00)
--- NOTE | 2021-07-31 16:47 | PM.CN.EICU ---
History of Present Illness Consult details Chief complaint: COVID+ :: This patient was seen via real time interactive two-way audiovisual telecommunication. 55 year old man with HTN and HLD trasnferred to ICU for furher management of his acute resp failure. Patient's is COVID +, and he developed symptoms about 8 days ago and they acutely worsened and was admitted to . Patient was on medical floor when hypoxemia worsened and was trasnferred. On my evaluation he was very tachypenic and easily SOB when speaking. Was very anxious. He also stated that he has been eating poorly sicne Jul 22. on Lab review he was hyponatremic, with eleavted inflammatory markers and LFTs. Mildly eleavted BUN. Imaging reviewed and consistent with COVID [facility] Medical History (Updated 07/30/21 @ 12:36 by Sharon Navarro MD) Anxiety (1999) Asthma (~1970) Cervical spine disease (2009) Chicken pox (1970) CTS (carpal tunnel syndrome) (2005) Depression (1999) Fibromyalgia (2011) GERD (gastroesophageal reflux disease) Hayfever (1965) Hypertension (2012) Pneumonia due to COVID-19 virus Skin tags, multiple acquired (2012) Surgical History Anesthesia History of carpal tunnel repair (2007) History of oral surgery (2012) Family History Child Age: 12 49XXXXY syndrome Father Cancer Lung cancer Colon cancer Grandfather Heart disease High cholesterol Mother Age: 81 Depression Breast cancer Dementia Grandmother Diabetes mellitus Grandmother COPD (chronic obstructive pulmonary disease) Grandfather No problems noted. Social History marital status: Smoking Status: Current every day smoker alcohol intake: current substance use type: marijuana (MEDICAL ) Current Medications Current Medications Medications: Home Medications alprazolam 0.25 mg tablet 0.25 mg PO DAILY PRN #30 tab 03/29/21 [Rx Confirmed 07/30/21] tramadol 50 mg tablet 50 mg PO Q6H PRN #20 tab 04/13/21 [Rx Confirmed 07/30/21] labetalol 200 mg tablet See Rx Instructions .ROUTE .COMPLEX #60 tablet 04/26/21 [Rx Confirmed 07/30/21] gabapentin 300 mg capsule 900 mg PO TID #810 cap 05/15/21 [Rx Confirmed 07/30/21] Visit Medications (administered) Generic Name Dose Route Start Last Admin Trade Name Freq PRN Reason Stop Dose Admin Acetaminophen 650 mg 07/30/21 19:45 07/30/21 20:25 Acetaminophen 325 Mg Tablet PO 650 mg Q6HR PRN Administration Fever Benzonatate 200 mg 07/31/21 15:00 07/31/21 15:49 Benzonatate 100 Mg Capsule PO 200 mg TID ALICIA Administration Dexamethasone 6 mg 07/31/21 09:00 07/31/21 08:52 Dexamethasone 10 Mg/Ml Vial IV 6 mg DAILY ALICIA Administration Enoxaparin Sodium 40 mg 07/31/21 09:00 07/31/21 08:52 Enoxaparin 40 Mg/0.4 Ml Syringe SUBCUT 40 mg DAILY ALICIA Administration Gabapentin 900 mg 07/30/21 21:00 07/31/21 15:49 Gabapentin 300 Mg Capsule PO 900 mg TID ALICIA Administration dexmedeTOMIDine in 0.9 % NaCL 400 mcg in 100 mls @ 4.195 mls/hr 07/31/21 14:45 07/31/21 15:50 Precedex IV 0.2 mcg/kg/hr TITRATE ALICIA 4.195 mls/hr Administration 0.2 MCG/KG/HR Labetalol HCl 200 mg 07/30/21 21:00 07/31/21 08:53 Labetalol 100 Mg Tablet PO 200 mg BID ALICIA Administration Lorazepam 1 mg 07/31/21 13:35 07/31/21 13:43 Lorazepam 2 Mg/Ml Inj IV 1 mg Q4HR PRN Administration Anxiety Oxycodone/Acetaminophen 1 tab 07/31/21 09:19 07/31/21 15:49 Oxycodone/Acetaminophen 5/325 Tablet PO 1 tab Q4HR PRN Administration Pain, Moderate (4-6) Exam Vital Signs (past 8 hours): - 07/31/21 08:50 07/31/21 08:53 07/31/21 12:00 Temperature 97.3 F L Pulse Rate 66 Respiratory Rate 22 Blood Pressure 123/67 123/67 Pulse Oximetry 88 L 79 L 07/31/21 12:21 07/31/21 12:30 07/31/21 13:20 Temperature 97.9 F Pulse Rate 79 64 Respiratory Rate 24 Blood Pressure 131/63 132/64 Pulse Oximetry 83 L 92 93 07/31/21 15:00 Temperature Pulse Rate 63 Respiratory Rate 26 H Blood Pressure Pulse Oximetry 97 Oxygen Delivery Method High Flow Nasal Cannula Oxygen Flow Rate 10 Narrative Exam Narrative: surrogate for exam is primary team Objective Labs Result Diagrams: 07/31/21 05:05 07/31/21 05:05 Labs: Laboratory Results - last 24 hr 07/31/21 07/31/21 07/31/21 05:05 05:05 05:05 WBC 7.4 D RBC 4.43 L Hgb 13.7 Hct 39.6 L MCV 89.4 MCH 30.9 MCHC 34.5 RDW 13.5 Plt Count 168 Neut % (Auto) 80.1 H Lymph % (Auto) 12.1 L [place] % (Auto) 7.5 Eos % (Auto) 0.1 L Baso % (Auto) 0.2 Neut # (Auto) 5900 Lymph # (Auto) 900 L [place] # (Auto) 600 Eos # (Auto) 0 Baso # (Auto) 0 PT INR ABG pH ABG pCO2 ABG pO2 ABG HCO3 ABG Total CO2 ABG O2 Saturation ABG Base Excess FiO2 Sodium 133 L Potassium 4.3 Chloride 105 Carbon Dioxide 25 BUN 21 H Creatinine 0.89 Estimated GFR > 60.0 BUN/Creatinine Ratio 23.6 H Glucose 143 H Calcium 7.9 L Ferritin Total Bilirubin 0.8 AST 123 H ALT 79 H Alkaline Phosphatase 100 Lactate Dehydrogenase C-Reactive Protein Total Protein 6.2 L Albumin 3.1 L Globulin 3.1 Albumin/Globulin Ratio 1.0 Lipase 358 H 07/31/21 07/31/21 07/31/21 11:32 11:38 14:57 WBC RBC Hgb Hct MCV MCH MCHC RDW Plt Count Neut % (Auto) Lymph % (Auto) [place] % (Auto) Eos % (Auto) Baso % (Auto) Neut # (Auto) Lymph # (Auto) [place] # (Auto) Eos # (Auto) Baso # (Auto) PT 12.7 INR 1.1 ABG pH 7.45 ABG pCO2 26.9 L ABG pO2 93 ABG HCO3 19 L ABG Total CO2 20 L ABG O2 Saturation 98 ABG Base Excess -5.0 L FiO2 100 Sodium Potassium Chloride Carbon Dioxide BUN Creatinine Estimated GFR BUN/Creatinine Ratio Glucose Calcium Ferritin 3870 H Total Bilirubin AST ALT Alkaline Phosphatase Lactate Dehydrogenase 2160 H C-Reactive Protein 7.5 H Total Protein Albumin Globulin Albumin/Globulin Ratio Lipase Assessment & Plan Assessment & Plan narrative: Assessment Acute hypoxemic resp failure ARDS COVID 10 HTN HLD eleavted LFT hyponatremia Plan continue high flow NC trend abg map goal > 65 encourage PO intake, ensure shakes trend bmp trend cbc cont steroids, remdesivir baricitnib monitor UO trend infammatory markeers dvt ppx empirc abx incentive spirometry CCT 50 min Time Spent With Patient Critical Care time: I spent a total of [] minutes of critical care time on this patient's care today; this time is exclusive of procedural time.
[2021-07-31] MEDS: AZITHROMYCIN 500 MG in DEXTROSE 5% IN WATER 250 ML IV (18:10)
--- NOTE | 2021-07-31 19:51 | PC.NURSE ---
Admit to ICU, Pt is arriving from 222 on 10L not tolerating well, HHFNC started on 50L and 100% Fio2, Pt in anxious and tachypnic, RR 38. IV Ativan given, better tolerated HHFNC but Pt remains very anxious about inability to catch his breath. ICU recruiter manager seen via video, Precidex started for anxiety relief, at 0.2mcg , Pt is substantially improved with less than 20 minutes on Precidex. RR reduced to 24 deeper and even. Pt dozing off at times, wakes easily. Spo2 100% able to reduce down to 80% Fio2 50L by end of day shift. Pt remains fatigued, urinal at bedside. NO void since arrival to ICU. Oncoming RN aware. ABX infusing and PICC placed to RUE for better access. Update to Dr Durán prior to end of shift. Call light in reach, Pt able to make needs known. Up date given to , in room 222.
[2021-07-31] MEDS: DOCUSATE 100 MG CAPSULE PO (20:41)
[2021-07-31] MEDS: cefTRIAXone 1,000 MG in SODIUM CHLORIDE 0.9% 100 ML 200 ML IV (20:41)
[2021-08-01] VITALS (84 sets, daily range): BP systolic 99–167; BP diastolic 61–94; PULSE 56–98; RESP 12–56; TEMP 36.2–36.7; O2SAT 72–100
[2021-08-01] MEDS: LORazepam 2 MG/ML INJ 1 MG IV ×3 (02:05→10:17)
--- NOTE | 2021-08-01 05:45 | PC.NURSE ---
0500 - PATIENT HAS HAS HIGH RR BUT WAS MANAGED WELL WITH ATIVAN AND PRECEDEX. DURING NIGHT HOURS RR WOULD INCREASED BUT WOULD DROP BACK DOWN TO THE 20S WITH MEDICATION AND BREATHING EXERCISES. AT 0500 PATIENT HAD ANXIETY ATTACK AND DESATURATED TO 73%. INCREASED HEATED HIGH FLOW NC TO 100% WITH NO RESULT. PLACED PATIENT ON NRB AT 15L WITH SLIGHT IMPROVEMENT. NOTIFED RT. RT CAME TO THE ROOM. NOTIFED NARCOTICS AND/OR VICE DETECTIVE WHEN PATIENT MENTAL STATUS STARTED TO DECLINE. NARCOTICS AND/OR VICE DETECTIVE ORDERED A STAT ABG AND TO BE NOTIFIED OF THE RESULT AND TO PREP FOR POTENTIAL INTUBATION.
[2021-08-01 05:46] LABS: Add Manual Diff / Slide Review NO; Basophils Absolute Auto 0 /uL (0-100); Basophils Percent Auto 0.1 % (0-2); Eosinophils Absolute Auto 0 /uL (0-450); Hemoglobin 13.4 g/dL (13.5-17.5); Lymphocytes Absolute Auto 900 /uL (1100-4500); Lymphocytes Percent Auto 10.4 % (25-40); Mean Corpuscular HGB Conc 34.4 % (30-36); Mean Corpuscular Hemoglobin 30.9 PG (26-34); Mean Corpuscular Volume 89.9 fL (80-100); Monocytes Absolute Auto 500 /uL (0-900); Monocytes Percent Auto 5.7 % (3-14); Neutrophils Absolute Auto 6900 /uL (1500-7000); Neutrophils Percent Auto 83.8 % (50-75); Platelet Count 211 X10^3/uL (150-400); Red Blood Cell Count 4.34 X10^6/uL (4.5-5.9); Red Cell Distribution Width 13.1 % (11.6-14.8); White Blood Cell Count 8.3 X10^3/uL (4.5-11.0)
[2021-08-01 05:54] LABS: Alanine Aminotransferase 72 IU/L (<50); Albumin Globulin Ratio 1.1 (1.0-2.8); Alkaline Phosphatase 103 U/L (38-126); Aspartate Aminotransferase 89 IU/L (17-59); BUN Creatinine Ratio 24.4 (6-22); Bilirubin Total 0.5 mg/dL (0.2-1.3); Blood Urea Nitrogen 19 mg/dL (9-20); Calcium 7.9 mg/dL (8.4-10.2); Carbon Dioxide 23 mmol/L (22-32); Chloride 109 mmol/L (98-107); Estimated Glomerular Filt Rate > 60.0 mL/min (>60); Globulin 2.7 g/dL (1.7-4.1); Glucose 137 mg/dL (70-100); HEMOLYSIS < 15 (0-50); Potassium 4.4 mmol/L (3.4-5.1); Sodium 136 mmol/L (137-145); Total Protein 5.7 g/dL (6.3-8.2)
[2021-08-01] MEDS: dexmedeTOMIDine in 0.9 % NaCL 400 MCG/100 ML PLAST..BAG 12.585 MCG IV (06:49)
[2021-08-01 07:14] LABS: pH ABG 7.39 (7.35-7.45)
[2021-08-01 07:15] LABS: Fractionated Inspired Oxygen 100; HCO3 ABG 21 mmol/L (22-26); Oxygen Saturation ABG 98 % (95-100); PCO2 ABG 35.7 mmHg (35-45); PO2 ABG 102 mmHg (80-100); TCO2 ABG 22 mmol/L (21-31)
--- NOTE | 2021-08-01 07:58 | P.PN_ITS ---
Subjective Subjective Date Patient Seen: 08/01/21 Time Patient Seen: 07:30 Interval history: Patient seen and evaluated this morning. Some occasional confusion at night last night. Reviewed care with nursing staff. Blood pressure is a little bit elevated. Some significant anxiety. Lorazepam and Precedex per tele belt lacer. Started on prophylactic IV antibiotics. Respiratory rate still quite high 30s to 40. Heated high-flow. 100% FiO2. ABG and lab work reviewed for this morning. Exam Vital Signs (past 8 hours): - 08/01/21 00:00 08/01/21 00:09 08/01/21 02:25 Temperature 98.0 F Pulse Rate 68 81 60 Respiratory Rate 24 24 27 H Blood Pressure 139/71 137/72 Pulse Oximetry 98 98 08/01/21 02:55 08/01/21 04:00 Temperature 98.1 F Pulse Rate 79 70 Respiratory Rate 20 22 Blood Pressure 151/83 H Pulse Oximetry 96 98 Fraction of Inspired Oxygen 0.88 Oxygen Delivery Method High Flow Nasal Cannula,Heated High Flow Oxygen Flow Rate 50 Narrative Exam Narrative: Gen.: Alert somewhat sleepy and somnolent answers direct questions HEENT: Pupils reactive or mucosa is dry. Cardio: S1-S2 regular rate and rhythm no murmurs appreciated. Respiratory: Lung sounds are distant. Increased work of breathing sounds clear. Abdomen: Soft nontender Extremities: Full range of motion no appreciable weakness Objective Labs Result Diagrams: 08/01/21 04:50 08/01/21 04:50 Labs: Laboratory Results - last 24 hr 07/31/21 07/31/21 07/31/21 11:32 11:38 14:57 WBC RBC Hgb Hct MCV MCH MCHC RDW Plt Count Neut % (Auto) Lymph % (Auto) [place] % (Auto) Eos % (Auto) Baso % (Auto) Neut # (Auto) Lymph # (Auto) [place] # (Auto) Eos # (Auto) Baso # (Auto) PT 12.7 INR 1.1 ABG pH 7.45 ABG pCO2 26.9 L ABG pO2 93 ABG HCO3 19 L ABG Total CO2 20 L ABG O2 Saturation 98 ABG Base Excess -5.0 L FiO2 100 Sodium Potassium Chloride Carbon Dioxide BUN Creatinine Estimated GFR BUN/Creatinine Ratio Glucose Calcium Ferritin 3870 H Total Bilirubin AST ALT Alkaline Phosphatase Lactate Dehydrogenase 2160 H C-Reactive Protein 7.5 H Total Protein Albumin Globulin Albumin/Globulin Ratio 08/01/21 08/01/21 08/01/21 04:50 04:50 06:04 WBC 8.3 RBC 4.34 L Hgb 13.4 L Hct 39.0 L MCV 89.9 MCH 30.9 MCHC 34.4 RDW 13.1 Plt Count 211 Neut % (Auto) 83.8 H Lymph % (Auto) 10.4 L [place] % (Auto) 5.7 Eos % (Auto) 0.0 L Baso % (Auto) 0.1 Neut # (Auto) 6900 Lymph # (Auto) 900 L [place] # (Auto) 500 Eos # (Auto) 0 Baso # (Auto) 0 PT INR ABG pH 7.39 ABG pCO2 35.7 ABG pO2 102 H ABG HCO3 21 L ABG Total CO2 22 ABG O2 Saturation 98 ABG Base Excess -4.0 L FiO2 100 Sodium 136 L Potassium 4.4 Chloride 109 H Carbon Dioxide 23 BUN 19 Creatinine 0.78 Estimated GFR > 60.0 BUN/Creatinine Ratio 24.4 H Glucose 137 H Calcium 7.9 L Ferritin Total Bilirubin 0.5 AST 89 H ALT 72 H Alkaline Phosphatase 103 Lactate Dehydrogenase C-Reactive Protein Total Protein 5.7 L Albumin 3.0 L Globulin 2.7 Albumin/Globulin Ratio 1.1 [facility] Medical History (Updated 07/30/21 @ 12:36 by Sharon Navarro MD) Anxiety (1999) Asthma (~1970) Cervical spine disease (2009) Chicken pox (1970) CTS (carpal tunnel syndrome) (2005) Depression (1999) Fibromyalgia (2011) GERD (gastroesophageal reflux disease) Hayfever (1965) Hypertension (2012) Pneumonia due to COVID-19 virus Skin tags, multiple acquired (2012) Surgical History Anesthesia History of carpal tunnel repair (2007) History of oral surgery (2012) Family History Child Age: 12 49XXXXY syndrome Father Cancer Lung cancer Colon cancer Grandfather Heart disease High cholesterol Mother Age: 81 Depression Breast cancer Dementia Grandmother Diabetes mellitus Grandmother COPD (chronic obstructive pulmonary disease) Grandfather No problems noted. Social History marital status: Smoking Status: Current every day smoker alcohol intake: current substance use type: marijuana (MEDICAL ) Assessment & Plan Assessment and plan (1) Pneumonia due to 2019 novel coronavirus: Status: Acute (2) Respiratory failure: Qualifiers: Chronicity: acute Respiratory failure complication: hypoxia Qualified Code(s): J96.01 - Acute respiratory failure with hypoxia Status: Acute Plan COVID-19 pneumonia with acute respiratory failure required transfer to ICU yesterday. Still some quite critical requiring high levels of FiO2. Increased respiratory rate. Some mild confusion. At times very anxious. Continue remdesivir dexamethasone and barcitiniab Heated high-flow oxygen down at 75% FiO2 50 L Bacterial pneumonia prophylaxis with ceftriaxone and azithromycin Lorazepam Precedex for anxiety Recheck CBC electrolytes liver enzymes inflammatory markers Dehydration.? Improved with IV hydration. IV fluids have been stopped. Monitor closely electrolytes. Continue to encourage oral hydration and and nutrition. Transaminitis.? Liver enzymes stable today. Continue to monitor. Essential hypertension.? Blood pressure still little bit high continue with IV labetalol. Will monitor in add additional blood pressure medication if needed. Generalized anxiety.? Worsened with the infection due to COVID. Continue with intermittent lorazepam Precedex and home medication. DVT prophylaxis Code status patient is a full code.? Patient still quite quit are cool. High respiratory rate O2 sats maintaining looks relaxed this morning but very difficult light last night. Preparation and place for intubation if needed. Anesthesia is aware. Tele belt lacer available for call. Time Spent With Patient Critical Care time: I spent a total of [] minutes of critical care time on this patient's care today; this time is exclusive of procedural time.
[2021-08-01] MEDS: ENOXAPARIN 40 MG/0.4 ML SYRINGE SUBCUT (09:53)
[2021-08-01] MEDS: DOCUSATE 100 MG CAPSULE PO (09:53)
--- NOTE | 2021-08-01 09:53 | P.TELICUPN_ITS ---
Subjective Subjective :: This patient was seen via real time interactive two-way audiovisual telecommunication. Comfortable on HFNC 75%/50L, precedex drip, tachpnea worsens off precedex. Current Medications Current Medications Medications: Home Medications alprazolam 0.25 mg tablet 0.25 mg PO DAILY PRN #30 tab 03/29/21 [Rx Confirmed 07/30/21] tramadol 50 mg tablet 50 mg PO Q6H PRN #20 tab 04/13/21 [Rx Confirmed 07/30/21] labetalol 200 mg tablet See Rx Instructions .ROUTE .COMPLEX #60 tablet 04/26/21 [Rx Confirmed 07/30/21] gabapentin 300 mg capsule 900 mg PO TID #810 cap 05/15/21 [Rx Confirmed 07/30/21] Visit Medications (administered) Generic Name Dose Route Start Last Admin Trade Name Freq PRN Reason Stop Dose Admin Acetaminophen 650 mg 07/30/21 19:45 07/30/21 20:25 Acetaminophen 325 Mg Tablet PO 650 mg Q6HR PRN Administration Fever Albuterol/Ipratropium 3 ml 07/30/21 19:50 07/31/21 12:30 Albuterol/Ipratropium 3 Ml Ampul INH 3 ml RTBID PRN Administration wheezing Benzonatate 200 mg 07/31/21 15:00 07/31/21 20:42 Benzonatate 100 Mg Capsule PO 200 mg TID ALICIA Administration Dexamethasone 6 mg 07/31/21 09:00 07/31/21 08:52 Dexamethasone 10 Mg/Ml Vial IV 6 mg DAILY ALICIA Administration Docusate Sodium 100 mg 07/31/21 21:00 07/31/21 20:41 Docusate 100 Mg Capsule PO 100 mg BID ALICIA Administration Enoxaparin Sodium 40 mg 07/31/21 09:00 07/31/21 08:52 Enoxaparin 40 Mg/0.4 Ml Syringe SUBCUT 40 mg DAILY ALICIA Administration Gabapentin 900 mg 07/30/21 21:00 07/31/21 20:42 Gabapentin 300 Mg Capsule PO 900 mg TID ALICIA Administration dexmedeTOMIDine in 0.9 % NaCL 400 mcg in 100 mls @ 4.195 mls/hr 07/31/21 14:45 08/01/21 07:14 Precedex IV 0.5 mcg/kg/hr TITRATE ALICIA 10.488 mls/hr Infusion 0.2 MCG/KG/HR Ceftriaxone Sodium 1,000 mg/ 100 mls @ 200 mls/hr 07/31/21 17:15 07/31/21 21:10 Sodium Chloride IV Infused Q24H ALICIA Infusion Azithromycin 500 mg/ Dextrose 250 mls @ 250 mls/hr 07/31/21 17:15 07/31/21 19:10 IV Infused Q24H ALICIA Infusion Labetalol HCl 200 mg 07/30/21 21:00 07/31/21 20:45 Labetalol 100 Mg Tablet PO 200 mg BID ALICIA Administration Lorazepam 1 mg 07/31/21 13:35 08/01/21 05:00 Lorazepam 2 Mg/Ml Inj IV 1 mg Q4HR PRN Administration Anxiety Oxycodone/Acetaminophen 1 tab 07/31/21 09:19 07/31/21 15:49 Oxycodone/Acetaminophen 5/325 Tablet PO 1 tab Q4HR PRN Administration Pain, Moderate (4-6) Objective Labs Result Diagrams: 08/01/21 04:50 08/01/21 04:50 Labs: Laboratory Results - last 24 hr 07/31/21 07/31/21 07/31/21 11:32 11:38 14:57 WBC RBC Hgb Hct MCV MCH MCHC RDW Plt Count Neut % (Auto) Lymph % (Auto) [place] % (Auto) Eos % (Auto) Baso % (Auto) Neut # (Auto) Lymph # (Auto) [place] # (Auto) Eos # (Auto) Baso # (Auto) PT 12.7 INR 1.1 ABG pH 7.45 ABG pCO2 26.9 L ABG pO2 93 ABG HCO3 19 L ABG Total CO2 20 L ABG O2 Saturation 98 ABG Base Excess -5.0 L FiO2 100 Sodium Potassium Chloride Carbon Dioxide BUN Creatinine Estimated GFR BUN/Creatinine Ratio Glucose Calcium Ferritin 3870 H Total Bilirubin AST ALT Alkaline Phosphatase Lactate Dehydrogenase 2160 H C-Reactive Protein 7.5 H Total Protein Albumin Globulin Albumin/Globulin Ratio 08/01/21 08/01/21 08/01/21 04:50 04:50 06:04 WBC 8.3 RBC 4.34 L Hgb 13.4 L Hct 39.0 L MCV 89.9 MCH 30.9 MCHC 34.4 RDW 13.1 Plt Count 211 Neut % (Auto) 83.8 H Lymph % (Auto) 10.4 L [place] % (Auto) 5.7 Eos % (Auto) 0.0 L Baso % (Auto) 0.1 Neut # (Auto) 6900 Lymph # (Auto) 900 L [place] # (Auto) 500 Eos # (Auto) 0 Baso # (Auto) 0 PT INR ABG pH 7.39 ABG pCO2 35.7 ABG pO2 102 H ABG HCO3 21 L ABG Total CO2 22 ABG O2 Saturation 98 ABG Base Excess -4.0 L FiO2 100 Sodium 136 L Potassium 4.4 Chloride 109 H Carbon Dioxide 23 BUN 19 Creatinine 0.78 Estimated GFR > 60.0 BUN/Creatinine Ratio 24.4 H Glucose 137 H Calcium 7.9 L Ferritin Total Bilirubin 0.5 AST 89 H ALT 72 H Alkaline Phosphatase 103 Lactate Dehydrogenase C-Reactive Protein Total Protein 5.7 L Albumin 3.0 L Globulin 2.7 Albumin/Globulin Ratio 1.1 Exam Vital Signs (past 8 hours): - 08/01/21 02:25 08/01/21 02:55 08/01/21 04:00 Temperature 98.1 F Pulse Rate 60 79 70 Respiratory Rate 27 H 20 22 Blood Pressure 137/72 151/83 H Pulse Oximetry 96 98 08/01/21 07:00 08/01/21 07:30 08/01/21 07:47 Temperature Pulse Rate 85 59 L 62 Respiratory Rate 56 H 40 H 35 H Blood Pressure 162/79 H Pulse Oximetry 81 L 97 99 08/01/21 07:55 08/01/21 08:00 Temperature Pulse Rate 67 56 L Respiratory Rate 30 H 38 H Blood Pressure 156/83 H 156/83 H Pulse Oximetry 99 99 Fraction of Inspired Oxygen 75 Oxygen Delivery Method Heated High Flow Oxygen Flow Rate 50 Assessment & Plan Assessment & Plan narrative: [address] [address] Teleintensivist Consult Note Patient: Anson Del Toro MR#: [id number] : 1965 Acct:[id number] Age/Sex: 55 / M ? Date of Service: 07/30/21 Provider:?Ran Gómez MD History of Present Illness Consult details Chief complaint: COVID+ :: This patient was seen via real time interactive two-way audiovisual telecommunication. 55 year old man with HTN and HLD trasnferred to ICU for furher management of his acute resp failure. Patient's is COVID +, and he developed symptoms about 8 days ago and they acutely worsened and was admitted to . Patient was on medical floor when hypoxemia worsened and was trasnferred. On my evaluation he was very tachypenic and easily SOB when speaking. Was very anxious. He also stated that he has been eating poorly sicJul 22. on Lab review he was hyponatremic, with eleavted inflammatory markers and LFTs.? Mildly eleavted BUN.? [facility] and [facility] History?(Updated 07/30/21 @ 12:36 by Sharon Navarro MD) Anxiety (1999) Asthma (~1970) Cervical spine disease (2009) Chicken pox (1970) CTS (carpal tunnel syndrome) (2005) Depression (1999) Fibromyalgia (2011) GERD (gastroesophageal reflux disease) Hayfever (1965) Hypertension (2012) Pneumonia due to COVID-19 virus Skin tags, multiple acquired (2012) Surgical History? Anesthesia History of carpal tunnel repair (2007) History of oral surgery (2012) Family History? Child? Age: 12 49XXXXY syndromeFather?? Cancer Lung cancer Colon cancerGrandfather?? Heart disease High cholesterolMother? Age: 81 Depression Breast cancer DementiaGrandmother?? Diabetes mellitusGrandmother?? COPD (chronic obstructive pulmonary disease)Grandfather? No problems noted. Social History? marital status:? Smoking Status:? Current every day smoker alcohol intake:? current substance use type:? marijuana (MEDICAL ) Current Medications Current Medications Medications: Home Medications alprazolam 0.25 mg tablet 0.25 mg PO DAILY PRN #30 tab 03/29/21 [Rx Confirmed 07/30/21] tramadol 50 mg tablet 50 mg PO Q6H PRN #20 tab 04/13/21 [Rx Confirmed 07/30/21] labetalol 200 mg tablet See Rx Instructions .ROUTE .COMPLEX #60 tablet 04/26/21 [Rx Confirmed 07/30/21] gabapentin 300 mg capsule 900 mg PO TID #810 cap 05/15/21 [Rx Confirmed 07/30/21] Visit Medications (administered) Generic NameE Dose Route Start Last Admin ? Trade Name Freq? PRN Reason Stop Dose Admin Acetaminophen ?650 mg ?07/30/21 19:45 ?07/30/21 20:25 ? Acetaminophen 325 Mg Tablet ?PO ? ?650 mg ? ?Q6HR PRN ? ?Administration ? ?Fever ? ? Benzonatate ?200 mg ?07/31/21 15:00 ?07/31/21 15:49 ? Benzonatate 100 Mg Capsule ?PO ? ?200 mg ? ?TID ALICIA ? ?Administration Dexamethasone ?6 mg ?07/31/21 09:00 ?07/31/21 08:52 ? Dexamethasone 10 Mg/Ml Vial ?IV ? ?6 mg ? ?DAILY ALICIA ? ?Administration Enoxaparin Sodium ?40 mg ?07/31/21 09:00 ?07/31/21 08:52 ? Enoxaparin 40 Mg/0.4 Ml Syringe ?SUBCUT ? ?40 mg ? ?DAILY ALICIA ? ?Administration GabapentinE ?900 mg ?07/30/21 21:00 ?07/31/21 15:49 ? Gabapentin 300 Mg Capsule ?PO ?B ?900 mg ? ?TID ALICIA ? ?Administration dexmedeTOMIDine in 0.9 % NaCL ?400 mcg in 100 mls @ 4.195 mls/hr ?07/31/21 14:45 ?07/31/21 15:50 ? Precedex ?IV ? ?0.2 mcg/kg/hr ?E ?TITRATE ALICIA ? ?4.195 mls/hr ?Administration ? ?0.2 MCG/KG/HR ? ? Labetalol HCl ?200 mg ?07/30/21 21:00 ?07/31/21 08:53 ? Labetalol 100 Mg TabletE ?PO ? ?200 mg ? ?BID ALICIA ? ?Administration Lorazepam ?1 mg ?07/31/21 13:35 ?07/31/21 13:43 ? Lorazepam 2 Mg/Ml Inj ?IV ? ?1 mg ? ?Q4HR PRN ? ?Administration ? ?Anxiety ? ? Oxycodone/Acetaminophen ?1 tab ?07/31/21 09:19 ?07/31/21 15:49 ? Oxycodone/Acetaminophen 5/325 Tablet ?PO ? ?1 tab ? ?Q4HR PRN ? ?Administration ? ?Pain, Moderate (4-6) ? ? Exam Vital Signs (past 8 hours): - ? 07/31/21 08:50 07/31/21 08:53 07/31/21 12:00 Temperature 97.3 F L ? ? Pulse Rate 66 ? ? Respiratory Rate 22 ? ? Blood Pressure 123/67 123/67 ? Pulse Oximetry 88 L ?B 79 L ? 07/31/21 12:21 07/31/21 12:30 07/31/21 13:20 Temperature ? 97.9 F ? Pulse Rate ? 79 64 Respiratory Rate ? ? 24 Blood Pressure ? 131/63 132/64 Pulse Oximetry 83 L 92 93 ? 07/31/21 15:00 Temperature ? Pulse Rate 63 Respiratory Rate 26 H Blood Pressure ? Pulse Oximetry 97 Oxygen Delivery Method? High Flow Nasal Cannula ? Oxygen Flow Rate? 10? Narrative Exam Narrative: surrogate for exam is primary team Objective Labs Result Diagrams: 07/31/21 05:05? 07/31/21 05:05? Labs: Laboratory Results - last 24 hr ? 07/31/21 07/31/21 07/31/21 ? 05:05 05:05 05:05 WBC ?7.4? D ? ? RBC ?4.43 L ? ? Hgb ?13.7 ? ? Hct ?39.6 L ? ? MCV ?89.4 ? ? MCH ?30.9 ? ? MCHCB ?34.5 ? ? RDW ?13.5 ? ? Plt Count ?168 ? ? Neut % (Auto) ?80.1 H ? ? Lymph % (Auto) ?12.1 L ? ? [place] % (Auto) ?7.5 ? ? Eos % (Auto) ?0.1 L ? ? Baso % (Auto) ?0.2 ? ? Neut # (Auto) ?5900 ? ? Lymph # (Auto) ?900 L ? ? [place] # (Auto) ?600 ? ? Eos # (Auto) ?0 ? ? Baso # (Auto) ?0 ? ? PT ? ? ? INR ? ? ? ABG pH ? ? ? ABG pCO2 ? ? ? ABG pO2 ? ? ? ABG HCO3 ? ? ? ABG Total CO2 ? ? ? ABG O2 Saturation ? ? ? D ABG Base Excess ? ? ? FiO2 ? ? ? Sodium ? ?133 L ? Potassium ? ?4.3 ? Chloride ? ?105 ? Carbon Dioxide ? ?25 ? BUN ? ?21 H ? Creatinine ? ?0.89 ? Estimated GFR ? ?> 60.0 ? BUN/Creatinine Ratio ? ?23.6 H ? Glucose ? ?143 H ? Calcium ? ?7.9 L ? Ferritin ? ? ? Total Bilirubin ? ?0.8 ? AST ? ?123 H ? ALT ? ?79 H ? Alkaline Phosphatase ? ?100 ? Lactate Dehydrogenase ? ? ? C-Reactive Protein ? ? ? Total Protein ? ?6.2 L ? Albumin ? ?3.1 L ? Globulin ? ?3.1 ? Albumin/Globulin Ratio ? ?1.0 ? Lipase ? ? ?358 H ? 07/31/21 07/31/21 07/31/21 ? 11:32 11:38 14:57 WBC ? ? ? D RBC ? ? ? Hgb ? ? ? Hct ? ? ? MCV ? ? ? MCH ? ? ? MCHC ? ? ? RDW ? ? ? Plt Count ? ? ? Neut % (Auto) ? ? ? Lymph % (Auto) ? ? ? [place] % (Auto) ? ? ? Eos % (Auto) ? ? ? Baso % (Auto) ? ? ? Neut # (Auto) ? ? ? Lymph # (Auto) ? ? ? [place] # (Auto) ? ? ? Eos # (Auto) ? ? ? Baso # (Auto) ? ? ? PT ? ?12.7 ? INR ? ?1.1 ? ABG pH ? ? ?7.45 ABG pCO2 ? ? ?26.9 L ABG pO2 ? ? ?93 ABG HCO3 ? ? ?19 L ABG Total CO2 ? ? ?20 L ABG O2 Saturation ? ? ?98 ABG Base Excess ? ? ?-5.0 L FiO2 ? ? ?100 Sodium ? ? ? Potassium ? ? ? Chloride ? ? ? Carbon Dioxide ? ? ? BUN ? ? ? Creatinine ? ? ? Estimated GFR ? ? ? BUN/Creatinine Ratio ? ? ? Glucose ? ? ? Calcium ? ? ? Ferritin ?3870 H ? ? Total Bilirubin ? ? ? AST ? ? ? ALT ? ? ? Alkaline Phosphatase ? ? ? Lactate Dehydrogenase ?2160 H ? ? C-Reactive Protein ?7.5 H ? ? Total Protein ? ? ? Albumin ? ? ? Globulin ? ? ? Albumin/Globulin Ratio ? ? ? Lipase ? ? ? Assessment & Plan Assessment Acute hypoxemic resp failure ARDS COVID 10 HTN HLD eleavted LFT hyponatremia Plan continue high flow NC, wean off Fio2 for sat goal of 92 ( high risk for intubation needs) trend abg map goal > 65 encourage PO intake, ensure shakes trend CMP daily/ LFT trending down trend cbc cont steroids, remdesivir baricitnib monitor UO trend infammatory markers dvt ppx empirc abx incentive spirometry CCT 50 min Time Spent With Patient Critical Care time: I spent a total of [] minutes of critical care time on this patient's care today; this time is exclusive of procedural time.
[2021-08-01] MEDS: GABAPENTIN 300 MG CAPSULE 900 MG PO (09:54)
[2021-08-01] MEDS: BARICITINIB 2 MG TABLET 4 MG PO (09:54)
[2021-08-01] MEDS: DEXAMETHASONE 10 MG/ML VIAL 6 MG IV (09:54)
[2021-08-01] MEDS: BENZONATATE 100 MG CAPSULE 200 MG PO (09:54)
[2021-08-01] MEDS: PANTOPRAZOLE 40 MG VIAL IV (09:54)
[2021-08-01] MEDS: LABETALOL 100 MG TABLET 200 MG PO (09:55)
--- NOTE | 2021-08-01 10:28 | CM.DPC ---
DCP continued: patient is a 55 yr old male who was admitted for COvid pneumonia. Patient is not vaccinated and is currently on Heated High flow 50L at 75%. Patients lives in [place] with his and there autistic child. Patients CM attempted to call the patients room but when he answered he was short of breath and asked CM to call back later. CM department will follow up when patient is doing better to get DC plan. Most likely will DC home with home O2 if needed. Darleen Olmos RN Case Manger.
[2021-08-01] MEDS: REMDESIVIR 100 MG in SODIUM CHLORIDE 0.9% 230 ML 250 ML IV (11:45)
--- NOTE | 2021-08-01 12:00 | PC.NURSE ---
Addendum entered by Niurka Schofield R.N. 08/01/21 18:41: [address] Patiño, ICU provider, Fio2 reduced, tolerating 80%, reduced later to 60% and Fio2 100% with current settings. Addendum entered by Niurka Schofield R.N. 08/01/21 16:27: 1440-Dr Wells at bedside, intubated with Succ, Fentanyl, propofol, ETT 8.0 24 at the teeth. CXR confirmed placement of ETT as well as NG that was dropped post intubation. Propofol started at 40mcg/kg/min Fentanyl @ 0.2 mcg/kg/hr. Vent settings per ICU blood donor recruiter supervisor TV 450 Peep 15 Fio2 100% RR 26. Confirmed with RT and vent settings initiated. Soft wrist restraints in place to BUE. Miller placed with immmediate 900 mls out. Maint IVF started. Addendum entered by Niurka Schofield R.N. 08/01/21 13:26: 1300-Update to Dr Armenta and Dr Patiño, proceed with patient intubation, vent settings and sedation orders obtained. Dr Wells to bedside for 1345 planned intubation Original Note: AM shift Pt with rough night with RR well into 40's and anxiety fueled worsening SOB. Acc muscles in use, unable to have conversation without substantial desat, into 70's with poor color to lips, unable to slow RR without substantial assist of RN and RT. FIO2 increased to 100% at this time, was tolerating 50L and 80% with out difficulty while sleeping. Unable to prone this AM, anxiety worsened with amount of monitor cables. Removed what was possible to aid in less anxiety. No PO intake this am, sipped at ensure and water with AM meds. Remains quite fragile with RR status. Precidex @ 0.5mcg/kg/hr at present. Mentation is drowsy, with forgetfulness, oriented x2, unsure of date and which hospital he is at, but states he has Covid and is receiving treatment ,
--- NOTE | 2021-08-01 13:29 | PM.PN.1 ---
Subjective Subjective Date Patient Seen: 08/01/21 Time Patient Seen: 13:29 Interval history: Patient seen and evaluated again this afternoon. Patient still mildly sedated with Precedex. As we decrease Precedex patient became somewhat anxious and more hypoxic. Fifty L heated high-flow 75-95% FiO2. Any time patient becomes more awake and arousable becomes much more anxious and hypoxic. Discussed case and care with tele pediatric allergist nursing staff. Patient respiratory status is critical. Without significant improvement despite 24 hours of high-flow nasal cannula and high FiO2. Despite this patient has not shown any improvement in respiratory status or drive. Discussed and updated care with his . Discussed with his increasing need and concern for intubation in this patient consent was obtained from her for intubation and mechanical ventilation. At the beginning of the hospitalization this care plan was discussed with the patient as well who was in agreement with intubation and mechanical ventilation if it was required. Due to patient's some mild sedation. Filled appropriately to have this discussion not only with patient but also patient's . Exam Vital Signs (past 8 hours): - 08/01/21 07:00 08/01/21 07:30 08/01/21 07:47 Temperature Pulse Rate 85 59 L 62 Respiratory Rate 56 H 40 H 35 H Blood Pressure 162/79 H Pulse Oximetry 81 L 97 99 08/01/21 07:55 08/01/21 08:00 08/01/21 08:30 Temperature Pulse Rate 67 56 L 59 L Respiratory Rate 30 H 38 H 35 H Blood Pressure 156/83 H 156/83 H Pulse Oximetry 99 99 91 08/01/21 09:00 08/01/21 09:30 08/01/21 10:00 Temperature Pulse Rate 61 60 59 L Respiratory Rate 35 H 12 36 H Blood Pressure Pulse Oximetry 93 94 94 08/01/21 10:12 08/01/21 10:30 08/01/21 11:00 Temperature Pulse Rate 58 L 59 L 61 Respiratory Rate 30 H 37 H 34 H Blood Pressure Pulse Oximetry 94 93 95 08/01/21 11:30 08/01/21 11:33 08/01/21 12:00 Temperature 97.7 F Pulse Rate 63 62 Respiratory Rate 39 H 32 H Blood Pressure Pulse Oximetry 95 95 08/01/21 12:32 08/01/21 12:33 Temperature Pulse Rate 66 Respiratory Rate 34 H Blood Pressure 159/82 H Pulse Oximetry 96 Fraction of Inspired Oxygen 85 Oxygen Delivery Method Heated High Flow Oxygen Flow Rate 50 Narrative Exam Narrative: Gen.: Sleeping but arousable. HEENT: Pupils equal round and reactive to light or mucosa is dry Cardio: Regular rate and rhythm Respiratory: Increased work of breathing with respiratory effort increased Abdomen: Soft nontender Extremities: Moving all extremities Objective Labs Result Diagrams: 08/01/21 04:50 08/01/21 04:50 Labs: Laboratory Results - last 24 hr 07/31/21 08/01/21 08/01/21 14:57 04:50 04:50 WBC 8.3 RBC 4.34 L Hgb 13.4 L Hct 39.0 L MCV 89.9 MCH 30.9 MCHC 34.4 RDW 13.1 Plt Count 211 Neut % (Auto) 83.8 H Lymph % (Auto) 10.4 L [place] % (Auto) 5.7 Eos % (Auto) 0.0 L Baso % (Auto) 0.1 Neut # (Auto) 6900 Lymph # (Auto) 900 L [place] # (Auto) 500 Eos # (Auto) 0 Baso # (Auto) 0 ABG pH 7.45 ABG pCO2 26.9 L ABG pO2 93 ABG HCO3 19 L ABG Total CO2 20 L ABG O2 Saturation 98 ABG Base Excess -5.0 L FiO2 100 Sodium 136 L Potassium 4.4 Chloride 109 H Carbon Dioxide 23 BUN 19 Creatinine 0.78 Estimated GFR > 60.0 BUN/Creatinine Ratio 24.4 H Glucose 137 H Calcium 7.9 L Total Bilirubin 0.5 AST 89 H ALT 72 H Alkaline Phosphatase 103 Total Protein 5.7 L Albumin 3.0 L Globulin 2.7 Albumin/Globulin Ratio 1.1 08/01/21 06:04 WBC RBC Hgb Hct MCV MCH MCHC RDW Plt Count Neut % (Auto) Lymph % (Auto) [place] % (Auto) Eos % (Auto) Baso % (Auto) Neut # (Auto) Lymph # (Auto) [place] # (Auto) Eos # (Auto) Baso # (Auto) ABG pH 7.39 ABG pCO2 35.7 ABG pO2 102 H ABG HCO3 21 L ABG Total CO2 22 ABG O2 Saturation 98 ABG Base Excess -4.0 L FiO2 100 Sodium Potassium Chloride Carbon Dioxide BUN Creatinine Estimated GFR BUN/Creatinine Ratio Glucose Calcium Total Bilirubin AST ALT Alkaline Phosphatase Total Protein Albumin Globulin Albumin/Globulin Ratio [facility] Medical History (Updated 08/01/21 @ 13:42 by Goyo Durán MD) Anxiety (1999) Asthma (~1970) Cervical spine disease (2009) Chicken pox (1970) CTS (carpal tunnel syndrome) (2005) Depression (1999) Fibromyalgia (2011) GERD (gastroesophageal reflux disease) Hayfever (1965) Hypertension (2012) Pneumonia due to COVID-19 virus Skin tags, multiple acquired (2012) Surgical History Anesthesia History of carpal tunnel repair (2007) History of oral surgery (2012) Family History Child Age: 12 49XXXXY syndrome Father Cancer Lung cancer Colon cancer Grandfather Heart disease High cholesterol Mother Age: 81 Depression Breast cancer Dementia Grandmother Diabetes mellitus Grandmother COPD (chronic obstructive pulmonary disease) Grandfather No problems noted. Social History marital status: Smoking Status: Current every day smoker alcohol intake: current substance use type: marijuana (MEDICAL ) Assessment & Plan Assessment and plan (1) Pneumonia due to 2019 novel coronavirus: Status: Acute (2) Respiratory failure: Qualifiers: Chronicity: acute Respiratory failure complication: hypoxia Qualified Code(s): J96.01 - Acute respiratory failure with hypoxia Status: Acute (3) ARDS (adult respiratory distress syndrome): Status: Acute Plan COVID pneumonia Acute respiratory distress ARDS with acute hypoxic respiratory failure Discussed case with tele pediatric allergist nursing staff. Patient has increasing need sedation to keep oxygenation normalized and condition worsening over the last 24 hours with aggressive heated high-flow. Intubation is recommended for this patient. Discussed case and care with his . Who agreed for mechanical ventilation of this patient. Anesthesia consulted for intubation on the patient. Tell pediatric allergist updated and recommended medications for sedation were placed. Vent settings were reviewed. Time Spent With Patient Critical Care time: I spent a total of [] minutes of critical care time on this patient's care today; this time is exclusive of procedural time.
--- NOTE | 2021-08-01 14:03 | DI.RAD.S_ITS ---
PROCEDURE: XR CHEST 1V INDICATIONS: intubation and ng tube placement TECHNIQUE: One view of the chest was acquired. COMPARISON: [facility], , XR CHEST 1V, 07/31/2021, 14:02. FINDINGS: Surgical changes and devices: ETT tip is approximately 4.3 cm above the joleen. Right sided PICC line tip is in SVC. NG tube tip is seen below the left hemidiaphragm and is in the expected location of stomach lumen. Lungs and pleura: Extensive airspace opacities are again noted throughout bilateral lung barnett suggestive of multilobar infiltrates. No pleural effusions or pneumothorax. Mediastinum: Mediastinal contours appear normal. Heart size is normal. Bones and chest wall: No suspicious bony lesions. Overlying soft tissues appear unremarkable. IMPRESSION: Tube and line positions as above. Persistent extensive bilateral pulmonary infiltrates. No pleural effusion or pneumothorax. Dictated by: Rajat Givens M.D. on 08/01/2021 at 15:33 Approved by: Rajat Givens M.D. on 08/01/2021 at 15:39
[2021-08-01] MEDS: fentaNYL 1,000 MCG in DEXTROSE 5% IN WATER 230 ML IV (15:00)
[2021-08-01] MEDS: VECURONIUM 50 MG in SODIUM CHLORIDE 0.9% 250 ML IV (15:00)
--- NOTE | 2021-08-01 15:14 | PM.PROC.1 ---
Procedures Date/Time Date of procedure: 08/01/21 Time of procedure: 14:40 Intubation Time out performed: Yes Sedative: other (fentanyl 100mcg, propofol 150mg, succinylcholine 80mg. Propofol boluses 30mg + 20mg while sedation being set up) Paralytic: succinylcholine Mg given: 80 Laryngoscope: other (Glidescope ) ET tube size: 7.5 ET tube uncuffed: No Tube secured depth (cm): 23 Tube secured location: teeth Tube placement confirmation: visualized tube passing through cords, equal breath sounds bilaterally, no breath sounds over epigastrium and confirmation by capnometry Patient tolerated procedure: well Intubation complications: none Additional comments: HHHF NCO2 continued during induction. Brief mask ventilation during fasciculations. DL x 1, Glidescope, grade 1 view. 7.5 passed easily through cords under direct visualization. Secured by RT at 23cm at teeth. Brief desat to 84% during intubation, rapid return to mid-upper 90's. Brief desat to mid 70's as succinylcholine wore off. Rocuronium 50mg administered with rapid improvement back to 90's. VS otherwise stable throughout.
--- NOTE | 2021-08-01 15:21 | DIET.CONS2 ---
Dietary Inpatient Consultation Note Admission Date: 07/30/2021 17:25 Pt currently being intubated for worsening respiratory status from covid. RD on standby to calculate enteral feeding needs once pt stabilized and propofol rate established. Pt reported having very poor POs x10d and refused all trays for past 2d while here at , only small sips ONS Ensure tolerated. Diet: 08/01/21 15:20 NPO Diet Diet Modifications: NPO Type: Strict Nutrition Percent Meal Consumed Pt refused breakfast 08/01/21 08:00 Percent Meal Consumed 0% 07/31/21 20:00 Percent Meal Consumed pt refused 07/31/21 11:33 Electronically Signed by: Caroline Downs 08/01/21 15:21 Clinical Diet[address] [id number]
[2021-08-01] MEDS: LACTATED RINGERS 1,000 ML 125 ML IV (16:04)
[2021-08-01] MEDS: propofoL 1,000 MG/100 ML VIAL 2.451 MG IV (16:17)
[2021-08-01] MEDS: propofoL 1,000 MG/100 ML VIAL 19.608 MG IV ×2 (17:22→22:20)
[2021-08-01] MEDS: AZITHROMYCIN 500 MG in DEXTROSE 5% IN WATER 250 ML IV ×2 (17:22→18:03)
--- NOTE | 2021-08-01 17:33 | DIET.CONS ---
Dietary Consultation Note Admission Date: 07/30/2021 17:25 Assessment: 55y M c pmhx HLD, HTN admitted with acute hypoxic respiratory failure from Covid PNA intubated in ICU consulting nutrition for enteral nutrition reccs. Pt reported having poor POs x10d and had 0% POs while hospitalized x2d besides a few sips of ONS Ensure. Pt titrated to 40mcg/min/kg propofol providing 518 kcals. Ht: 180.34 cm Wt: 81.7 kg BMI: 25.7 Last BM: () MNA: Flavio Score: 11 Diet: 08/01/21 15:20 NPO Diet Diet Modifications: NPO Type: Strict Nutrition Percent Meal Consumed Pt refused breakfast 08/01/21 08:00 Percent Meal Consumed 0% 07/31/21 20:00 Percent Meal Consumed pt refused 07/31/21 11:33 Labs: RBC 4.34 X10^6/uL (4.5-5.9) L 08/01/21 04:50 Hgb 13.4 g/dL (13.5-17.5) L 08/01/21 04:50 Hct 39.0 % (41-53) L 08/01/21 04:50 Creatinine 0.78 mg/dL (0.66-1.25) 08/01/21 04:50 Lactate 1.1 mmol/L (0.7-2.1) 07/30/21 10:50 Ferritin 3870 ng/mL (18-464) H 07/31/21 11:32 Nutrition Diagnosis: Severe Acute Protein Calorie Malnutrition r/t poor POs aeb pt meeting <25% EER x10d c severe covid PNA, pt c high RR in 40s using accessory muscles, pt intubated requiring enteral nutrition. Interventions: 1. Recc continuous enteral feeding via NG tube once hospitalist/under baster gives okay for feeding and NG in correct position per imaging. Formula: Pivot 1.5 Starting Rate: 10mL/h Titrating up by 10mL q6h as tolerated Goal Rate: 40mL/h Free Water Flushes: 350mL q4h for total flushes 2100mL (watch for fluid balance, adjust as needed per provider) Formula, propofol, plus feed provides: 2829 mL fluid (35mL/kg) 729mL coming from formula 1982 kcals (24kcal/kg) 96g PRO (1.2g/kg) 166g CHO 106g fat 2. HOB elevated 30 degrees at all times to reduce risk for aspiration. 3. Recc monitoring refeeding labs secondary to poor intake >7d. Recc watching BG, Mag, K+ and Phos for first two days, correcting per protocol. EER: 2000 kcals (25kcal/kg, overweight PCM), 100g PRO (1.2g/kg per PCM), 30-35mL/kg fluids Monitoring/Evaluations: following daily for enteral feeding initiation, titration, tolerance, POC Electronically Signed by: Caroline Downs 08/01/21 17:33 Clinical Dietitian [address] [address]
--- NOTE | 2021-08-01 18:06 | PM.PN.1 ---
Subjective Subjective Date Patient Seen: 08/01/21 Time Patient Seen: 16:45 Interval history: Patient seen and evaluated after intubation. Discussed with Anesthesia and Nursing. Currently vital signs are stable. Vent settings were reviewed. Patient is sedated comfortable. Miller catheter placed NG tube placed vital signs are stable. Care Plan updated with his . Exam Vital Signs (past 8 hours): - 08/01/21 10:12 08/01/21 10:30 08/01/21 11:00 Temperature Pulse Rate 58 L 59 L 61 Respiratory Rate 30 H 37 H 34 H Blood Pressure Pulse Oximetry 94 93 95 08/01/21 11:30 08/01/21 11:33 08/01/21 12:00 Temperature 97.7 F Pulse Rate 63 62 61 Respiratory Rate 39 H 32 H 33 H Blood Pressure Pulse Oximetry 95 95 94 08/01/21 12:29 08/01/21 12:30 08/01/21 12:32 Temperature Pulse Rate 67 66 Respiratory Rate 40 H 43 H Blood Pressure 159/82 H 159/82 H Pulse Oximetry 96 95 08/01/21 12:33 08/01/21 13:00 08/01/21 13:30 Temperature Pulse Rate 66 60 72 Respiratory Rate 34 H 40 H 39 H Blood Pressure Pulse Oximetry 96 96 95 08/01/21 13:57 08/01/21 14:00 08/01/21 14:02 Temperature Pulse Rate 71 91 H 80 Respiratory Rate 38 H 15 19 Blood Pressure 167/90 H 163/94 H 164/89 H Pulse Oximetry 97 87 L 95 08/01/21 14:03 08/01/21 14:06 08/01/21 14:09 Temperature Pulse Rate 71 75 89 Respiratory Rate 14 17 22 Blood Pressure 160/94 H 157/86 H 146/83 H Pulse Oximetry 97 94 82 L 08/01/21 14:12 08/01/21 14:15 08/01/21 14:18 Temperature Pulse Rate 98 H 90 81 Respiratory Rate 21 19 19 Blood Pressure 130/78 153/76 H 148/81 H Pulse Oximetry 72 L 90 L 97 08/01/21 14:21 08/01/21 14:24 08/01/21 14:28 Temperature Pulse Rate 85 86 84 Respiratory Rate 21 26 H 26 H Blood Pressure 142/78 H 137/79 119/74 Pulse Oximetry 95 98 99 08/01/21 14:30 08/01/21 14:33 08/01/21 14:36 Temperature Pulse Rate 84 83 84 Respiratory Rate 26 H 26 H 26 H Blood Pressure 110/67 113/69 113/71 Pulse Oximetry 100 100 100 08/01/21 14:39 08/01/21 14:42 08/01/21 14:45 Temperature Pulse Rate 85 71 68 Respiratory Rate 27 H 26 H 26 H Blood Pressure 107/70 127/80 130/80 Pulse Oximetry 100 100 100 08/01/21 15:00 08/01/21 15:15 Temperature Pulse Rate 62 62 Respiratory Rate 26 H 26 H Blood Pressure 116/75 116/77 Pulse Oximetry 100 100 Fraction of Inspired Oxygen 60 Oxygen Delivery Method Heated High Flow Oxygen Flow Rate 50 Objective Labs Result Diagrams: 08/01/21 04:50 08/01/21 04:50 Labs: Laboratory Results - last 24 hr 08/01/21 08/01/21 08/01/21 04:50 04:50 06:04 WBC 8.3 RBC 4.34 L Hgb 13.4 L Hct 39.0 L MCV 89.9 MCH 30.9 MCHC 34.4 RDW 13.1 Plt Count 211 Neut % (Auto) 83.8 H Lymph % (Auto) 10.4 L [place] % (Auto) 5.7 Eos % (Auto) 0.0 L Baso % (Auto) 0.1 Neut # (Auto) 6900 Lymph # (Auto) 900 L [place] # (Auto) 500 Eos # (Auto) 0 Baso # (Auto) 0 ABG pH 7.39 ABG pCO2 35.7 ABG pO2 102 H ABG HCO3 21 L ABG Total CO2 22 ABG O2 Saturation 98 ABG Base Excess -4.0 L FiO2 100 Sodium 136 L Potassium 4.4 Chloride 109 H Carbon Dioxide 23 BUN 19 Creatinine 0.78 Estimated GFR > 60.0 BUN/Creatinine Ratio 24.4 H Glucose 137 H Calcium 7.9 L Total Bilirubin 0.5 AST 89 H ALT 72 H Alkaline Phosphatase 103 Total Protein 5.7 L Albumin 3.0 L Globulin 2.7 Albumin/Globulin Ratio 1.1 [facility] Medical History (Updated 08/01/21 @ 13:42 by Goyo Durán MD) Anxiety (1999) Asthma (~1970) Cervical spine disease (2009) Chicken pox (1970) CTS (carpal tunnel syndrome) (2005) Depression (2000) Fibromyalgia (2011) GERD (gastroesophageal reflux disease) Hayfever (1965) Hypertension (2013) Pneumonia due to COVID-19 virus Skin tags, multiple acquired (2012) Surgical History Anesthesia History of carpal tunnel repair (2007) History of oral surgery (2012) Family History Child Age: 12 49XXXXY syndrome Father Cancer Lung cancer Colon cancer Grandfather Heart disease High cholesterol Mother Age: 81 Depression Breast cancer Dementia Grandmother Diabetes mellitus Grandmother COPD (chronic obstructive pulmonary disease) Grandfather No problems noted. Social History marital status: household members: spouse and children Smoking Status: Current every day smoker alcohol intake: current substance use type: marijuana (MEDICAL ) Assessment & Plan Assessment and plan (1) ARDS (adult respiratory distress syndrome): Status: Acute (2) Pneumonia due to 2019 novel coronavirus: Status: Acute (3) Respiratory failure: Qualifiers: Chronicity: acute Respiratory failure complication: hypoxia Qualified Code(s): J96.01 - Acute respiratory failure with hypoxia Status: Acute Plan Status post intubation patient sedated. Saturations vital signs are stable. ABG ordered. Care discussed with tele lead custodian and is updated on patient's condition. NG tube Miller catheter IV fluids were placed nutrition consultation obtain to start feeding tomorrow. Continued standard treatment for COVID pneumonia prophylactic antibiotics DVT prophylaxis proton pump inhibitor. Time Spent With Patient Critical Care time: I spent a total of [] minutes of critical care time on this patient's care today; this time is exclusive of procedural time.
[2021-08-01 18:09] LABS: PCO2 ABG 31.5 mmHg (35-45); pH ABG 7.44 (7.35-7.45)
[2021-08-01 18:10] LABS: HCO3 ABG 21 mmol/L (22-26); Oxygen Saturation ABG 100 % (95-100); TCO2 ABG 22 mmol/L (21-31)
[2021-08-01 18:11] LABS: Fractionated Inspired Oxygen 100
--- NOTE | 2021-08-01 18:20 | PC.NURSE ---
train of four initiated per protocol for paralytic use. 4/4 twitches noted, vecuronium increased by increments of 0.1 mcg/kg/min to achieve 2/4 twitches, final dose=1.0 mcg/kg.min
[2021-08-01] MEDS: cefTRIAXone 1,000 MG in SODIUM CHLORIDE 0.9% 100 ML 200 ML IV (20:58)
[2021-08-01] MEDS: GABAPENTIN 300 MG CAPSULE 900 MG TUBE (20:59)
[2021-08-01] MEDS: CHLORHEXIDINE GLUCONATE 15 ML CUP PO (20:59)
--- NOTE | 2021-08-01 21:14 | PM.EICU.INT ---
Teleintensivist Intervention Date/Time Was camera activated?: No Issue(s) Addressed Issue(s): Resp. Distress/Ventilator management (Pt failed HFNC, intubated , sedated and paralyzed, overnight Vent adjusted, weaned off fio2 from 100% to 60% and PEEP 15-->13, RR 26-->22, pending AB) Intervention(s) Plan discussed with: Physician/provider, Nurse and Respiratory therapist
[2021-08-01 22:18] LABS: pH ABG 7.48 (7.35-7.45)
[2021-08-01 22:19] LABS: Fractionated Inspired Oxygen 60; HCO3 ABG 21 mmol/L (22-26); Oxygen Saturation ABG 100 % (95-100); PCO2 ABG 27.4 mmHg (35-45); PO2 ABG 157 mmHg (80-100); TCO2 ABG 21 mmol/L (21-31)
[2021-08-02] VITALS (54 sets, daily range): BP systolic 94–154; BP diastolic 54–100; PULSE 66–89; RESP 18–46; TEMP 37.1–37.4; O2SAT 93–99
[2021-08-02] MEDS: fentaNYL 1,000 MCG in DEXTROSE 5% IN WATER 230 ML 40.85 ML IV (01:45)
[2021-08-02] MEDS: propofoL 1,000 MG/100 ML VIAL 19.608 MG IV (02:45)
--- NOTE | 2021-08-02 03:21 | PC.NURSE ---
0245 - WAS TITRATING DOWN ON VECURONIUM BECAUSE TRAIN OF FOUR WAS 0/4. PATIENT STARTED TO COUGH AND BREATH AGAINST THE VENT. INCREASED PROPOFOL TO 50 MCG/KG/MIN AND INCREASED FENTANYL TO 2.5 MCG/KG/HR. TESTED TRAIN OF FOUR WHILE WAITING FOR PATIENT TO SEDATE. TRAIN OF FOUR WAS 4/4. ONCE PATIENT SEDATED TO RASS OF -5, TITRATED VECURONIUM TO 0.8 MCG/KG/MIN. ACHEIVED TRAIN OF FOUR OF 2/4 AT THIS RATE.
--- NOTE | 2021-08-02 05:00 | DI.RAD.S_ITS ---
PROCEDURE: XR CHEST 1V INDICATIONS: covid pnumionia TECHNIQUE: One view of the chest was acquired. COMPARISON: [facility], CR, XR CHEST 1V, 08/01/2021, 14:07. FINDINGS: Surgical changes and devices: Interval placement of an enteric tube which extends below the left diaphragm, likely within the stomach. A right PICC line and endotracheal tube are again seen Lungs and pleura: Persistent bilateral airspace opacities, most consistent with chronic infiltrates. No pleural effusions or pneumothorax. Mediastinum: Mediastinal contours appear normal. Heart size is normal. Bones and chest wall: No suspicious bony lesions. Overlying soft tissues appear unremarkable. IMPRESSION: No significant interval change. Dictated by: Jorge Arzate M.D. on 08/02/2021 at 9:24 Approved by: Jorge Arzate M.D. on 08/02/2021 at 9:25
--- NOTE | 2021-08-02 05:56 | PC.NURSE ---
0530 - TRAIN OF FOUR: 0/4. TITRATED VECURONIUM TO 0.5 MCG/KG/MIN
[2021-08-02] MEDS: CHLORHEXIDINE GLUCONATE 15 ML CUP PO ×3 (05:58→17:13)
[2021-08-02 06:09] LABS: Add Manual Diff / Slide Review NO; Basophils Absolute Auto 0 /uL (0-100); Basophils Percent Auto 0.1 % (0-2); Eosinophils Absolute Auto 0 /uL (0-450); Hematocrit 37.8 % (41-53); Hemoglobin 12.8 g/dL (13.5-17.5); Lymphocytes Absolute Auto 1000 /uL (1100-4500); Lymphocytes Percent Auto 10.9 % (25-40); Mean Corpuscular HGB Conc 33.9 % (30-36); Mean Corpuscular Hemoglobin 30.8 PG (26-34); Mean Corpuscular Volume 90.9 fL (80-100); Monocytes Absolute Auto 500 /uL (0-900); Monocytes Percent Auto 5.4 % (3-14); Neutrophils Absolute Auto 7400 /uL (1500-7000); Neutrophils Percent Auto 83.6 % (50-75); Platelet Count 205 X10^3/uL (150-400); Red Blood Cell Count 4.15 X10^6/uL (4.5-5.9); Red Cell Distribution Width 13.7 % (11.6-14.8); White Blood Cell Count 8.8 X10^3/uL (4.5-11.0)
[2021-08-02 06:11] LABS: INR 1.2 (0.9-1.3); Prothrombin Time 13.3 SECONDS (10.1-12.7)
--- NOTE | 2021-08-02 06:16 | PC.NURSE ---
0615 - TRAIN OF FOUR: 08/01
[2021-08-02 06:27] LABS: Alanine Aminotransferase 54 IU/L (<50); Albumin 2.7 g/dL (3.5-5.0); Albumin Globulin Ratio 1.1 (1.0-2.8); Alkaline Phosphatase 90 U/L (38-126); Aspartate Aminotransferase 58 IU/L (17-59); BUN Creatinine Ratio 28.2 (6-22); Bilirubin Total 0.4 mg/dL (0.2-1.3); Blood Urea Nitrogen 20 mg/dL (9-20); Calcium 7.7 mg/dL (8.4-10.2); Carbon Dioxide 23 mmol/L (22-32); Chloride 110 mmol/L (98-107); Estimated Glomerular Filt Rate > 60.0 mL/min (>60); Globulin 2.5 g/dL (1.7-4.1); Glucose 121 mg/dL (70-100); HEMOLYSIS 17 (0-50); Magnesium 2.6 mg/dL (1.6-2.3); Potassium 4.2 mmol/L (3.4-5.1); Sodium 137 mmol/L (137-145); Total Protein 5.2 g/dL (6.3-8.2)
[2021-08-02 06:31] LABS: C-Reactive Protein Quant 4.1 mg/dL (<1.0); Lactate Dehydrogenase 2075 U/L (313-618)
[2021-08-02] MEDS: propofoL 1,000 MG/100 ML VIAL 24.51 MG IV ×4 (06:37→19:56)
--- NOTE | 2021-08-02 06:46 | PM.PN.1 ---
Subjective Subjective Date Patient Seen: 08/02/21 Time Patient Seen: 08:39 Interval history: Patient seen and evaluated discussed care with nursing staff tele black ash worker. Patient recanted coulee ventilated sedated. Patient did well overnight with stable oxygenation on ventilation. Labs EKG and chest x-ray ABG reviewed and evaluated. Exam Vital Signs (past 8 hours): - 08/01/21 23:00 08/01/21 23:15 08/01/21 23:30 Pulse Rate 70 69 69 Respiratory Rate 18 18 18 Blood Pressure 107/62 101/64 103/63 Pulse Oximetry 99 99 99 08/01/21 23:45 08/02/21 00:00 08/02/21 00:15 Pulse Rate 69 69 69 Respiratory Rate 18 18 18 Blood Pressure 105/62 103/61 100/60 Pulse Oximetry 99 99 99 08/02/21 00:30 08/02/21 00:45 08/02/21 01:00 Pulse Rate 67 68 68 Respiratory Rate 18 18 18 Blood Pressure 102/62 101/61 100/61 Pulse Oximetry 99 99 99 08/02/21 01:24 08/02/21 01:30 08/02/21 02:00 Pulse Rate 67 66 69 Respiratory Rate 20 18 18 Blood Pressure 117/68 122/66 Pulse Oximetry 95 96 98 08/02/21 02:30 08/02/21 03:00 08/02/21 03:30 Pulse Rate 67 68 73 Respiratory Rate 18 18 18 Blood Pressure 122/66 Pulse Oximetry 98 94 97 08/02/21 04:00 08/02/21 05:00 08/02/21 05:51 Pulse Rate 68 68 68 Respiratory Rate 18 18 18 Blood Pressure 122/68 124/68 Pulse Oximetry 98 98 98 Fraction of Inspired Oxygen 80 Oxygen Delivery Method Mechanical Ventilation Oxygen Flow Rate 50 Narrative Exam Narrative: Gen.: Sedated mechanically ventilated HEENT: NG tube in place pupils reactive. ET tube in place Cardio: S1 to regular rate and rhythm Respiratory: Lungs are mechanical breath sounds bilateral aeration. Abdomen: Soft nontender Extremities: Warm dry and perfused. Objective ECG Impression: NSR rate [address] changes Imaging Chest x-ray: Radiologist's impression: INDICATIONS:? intubation and ng tube placement ? TECHNIQUE:? One view of the chest was acquired.? ? COMPARISON:? [facility], CR, XR CHEST 1V, 07/31/2021, 14:02. ? FINDINGS:? ? Surgical changes and devices:? ETT tip is approximately 4.3 cm above the joleen.? Right sided PICC line tip is in SVC.? NG tube tip is seen below the left hemidiaphragm and is in the expected location of stomach lumen. ? Lungs and pleura:? Extensive airspace opacities are again noted throughout bilateral lung barnett suggestive of multilobar infiltrates.? No pleural effusions or pneumothorax.? ? Mediastinum:? Mediastinal contours appear normal.? Heart size is normal.? ? Bones and chest wall:? No suspicious bony lesions.? Overlying soft tissues appear unremarkable.? ? IMPRESSION:? Tube and line positions as above.? Persistent extensive bilateral pulmonary infiltrates.? No pleural effusion or pneumothorax. Labs Result Diagrams: 08/02/21 05:38 08/02/21 05:38 Labs: Laboratory Results - last 24 hr 08/01/21 08/01/21 08/01/21 06:04 15:25 21:10 WBC RBC Hgb Hct MCV MCH MCHC RDW Plt Count Neut % (Auto) Lymph % (Auto) [place] % (Auto) Eos % (Auto) Baso % (Auto) Neut # (Auto) Lymph # (Auto) [place] # (Auto) Eos # (Auto) Baso # (Auto) PT INR ABG pH 7.39 7.44 7.48 H ABG pCO2 35.7 31.5 L 27.4 L ABG pO2 102 H 318 H* 157 H ABG HCO3 21 L 21 L 21 L ABG Total CO2 22 22 21 ABG O2 Saturation 98 100 100 ABG Base Excess -4.0 L -3.0 L -3.0 L FiO2 100 100 60 08/02/21 08/02/21 05:38 05:38 WBC 8.8 RBC 4.15 L Hgb 12.8 L Hct 37.8 L MCV 90.9 MCH 30.8 MCHC 33.9 RDW 13.7 Plt Count 205 Neut % (Auto) 83.6 H Lymph % (Auto) 10.9 L [place] % (Auto) 5.4 Eos % (Auto) 0.0 L Baso % (Auto) 0.1 Neut # (Auto) 7400 H Lymph # (Auto) 1000 L [place] # (Auto) 500 Eos # (Auto) 0 Baso # (Auto) 0 PT 13.3 H INR 1.2 ABG pH ABG pCO2 ABG pO2 ABG HCO3 ABG Total CO2 ABG O2 Saturation ABG Base Excess FiO2 [facility] Medical History Anxiety (1999) Asthma (~1970) Cervical spine disease (2009) Chicken pox (1970) CTS (carpal tunnel syndrome) (2005) Depression (1999) Fibromyalgia (2011) GERD (gastroesophageal reflux disease) Hayfever (1965) Hypertension (2012) Pneumonia due to COVID-19 virus Skin tags, multiple acquired (2012) Surgical History Anesthesia History of carpal tunnel repair (2007) History of oral surgery (2012) Family History Child Age: 12 49XXXXY syndrome Father Cancer Lung cancer Colon cancer Grandfather Heart disease High cholesterol Mother Age: 81 Depression Breast cancer Dementia Grandmother Diabetes mellitus Grandmother COPD (chronic obstructive pulmonary disease) Grandfather No problems noted. Social History marital status: household members: spouse and children Smoking Status: Current every day smoker alcohol intake: current substance use type: marijuana (MEDICAL ) Assessment & Plan Assessment and plan (1) ARDS (adult respiratory distress syndrome): Status: Acute (2) Pneumonia due to 2019 novel coronavirus: Status: Acute (3) Respiratory failure: Qualifiers: Chronicity: acute Respiratory failure complication: hypoxia Qualified Code(s): J96.01 - Acute respiratory failure with hypoxia Status: Acute Plan COVID-19 pneumonia with acute respiratory failure with ARDS. Patient in ICU mechanically ventilated and sedated. Continue remdesivir dexamethasone and barcitiniab Vent management and sedation per tele black ash worker Bacterial pneumonia prophylaxis with ceftriaxone and azithromycin Recheck CBC electrolytes liver enzymes inflammatory markers Dehydration.? Maintenance IV fluids with lactated Ringer's. Nutrition. Start tube feeds today. Transaminitis.? Liver enzymes stable today.? Essential hypertension.? Blood pressure still little bit high continue with labetalol.? Will monitor in add additional blood pressure medication if needed. DVT prophylaxis Code status patient is a full code.? Patient in critical condition. Due to crisis care standard ICU bed availability is lacking. Discussed with transfer team about transfer to tertiary care center. Bed availability not available at this time will continue to work on transfer of this critical patient. Time Spent With Patient Critical Care time: I spent a total of [] minutes of critical care time on this patient's care today; this time is exclusive of procedural time.
[2021-08-02] MEDS: fentaNYL 1,000 MCG in DEXTROSE 5% IN WATER 230 ML 51.063 ML IV (06:59)
[2021-08-02 07:44] LABS: Ferritin 1470 ng/mL (18-464)
[2021-08-02] MEDS: ALBUTEROL/IPRATROPIUM 3 ML AMPUL INH (08:42)
[2021-08-02] MEDS: DEXAMETHASONE 10 MG/ML VIAL 6 MG IV (11:04)
[2021-08-02] MEDS: PANTOPRAZOLE 40 MG VIAL IV (11:04)
[2021-08-02] MEDS: REMDESIVIR 100 MG in SODIUM CHLORIDE 0.9% 230 ML 250 ML IV (11:06)
[2021-08-02] MEDS: ENOXAPARIN 40 MG/0.4 ML SYRINGE SUBCUT (11:10)
[2021-08-02] MEDS: BARICITINIB 2 MG TABLET 4 MG PO (11:10)
[2021-08-02] MEDS: LORazepam 2 MG/ML INJ 1 MG IV ×2 (11:12→17:45)
--- NOTE | 2021-08-02 11:27 | PM.PN.EICU ---
Subjective Subjective :: This patient was seen via real time interactive two-way audiovisual telecommunication. Pt continue to be sedated, paralyzed, on the Vent. Assessment Acute hypoxemic resp failure ARDS COVID 10 HTN HLD eleavted LFT hyponatremia/ resolved Plan Continue propfol and fentanyl, wean off Vec CXR reviwed, Vent sitting weaned to Vc 18/450/13/60%, trend abg CXR daily Start tube feed and increase as tolerated to goal trend CBC and CMP daily cont steroids, remdesivir baricitnib monitor UO trend infammatory markers dvt ppx Lovenox intermediate dose PPI for GI ppx empirc abx Day3 Ceftriaxone and Azithromycin CCT 50 min Current Medications Current Medications Medications: Home Medications alprazolam 0.25 mg tablet 0.25 mg PO DAILY PRN #30 tab 03/29/21 [Rx Confirmed 07/30/21] tramadol 50 mg tablet 50 mg PO Q6H PRN #20 tab 04/13/21 [Rx Confirmed 07/30/21] labetalol 200 mg tablet See Rx Instructions .ROUTE .COMPLEX #60 tablet 04/26/21 [Rx Confirmed 07/30/21] gabapentin 300 mg capsule 900 mg PO TID #810 cap 05/15/21 [Rx Confirmed 07/30/21] Visit Medications (administered) Generic Name Dose Route Start Last Admin Trade Name Freq PRN Reason Stop Dose Admin Albuterol/Ipratropium 3 ml 07/30/21 19:50 08/02/21 08:42 Albuterol/Ipratropium 3 Ml Ampul INH 3 ml RTBID PRN Administration wheezing Chlorhexidine Gluconate 15 ml 08/01/21 18:00 08/02/21 11:04 Chlorhexidine Gluconate 15 Ml Cup PO 15 ml Q6HR ALICIA Administration Dexamethasone 6 mg 07/31/21 09:00 08/02/21 11:04 Dexamethasone 10 Mg/Ml Vial IV 6 mg DAILY ALICIA Administration Docusate Sodium 100 mg 07/31/21 21:00 08/02/21 11:05 Docusate 100 Mg Capsule PO Not Given BID ALICIA Enoxaparin Sodium 40 mg 07/31/21 09:00 08/02/21 11:10 Enoxaparin 40 Mg/0.4 Ml Syringe SUBCUT 40 mg DAILY ALICIA Administration Remdesivir 100 mg/ Sodium 250 mls @ 250 mls/hr 08/01/21 09:00 08/02/21 11:06 Chloride IV 08/09/21 09:59 250 mls/hr DAILY ALICIA Administration Ceftriaxone Sodium 1,000 mg/ 100 mls @ 200 mls/hr 07/31/21 17:15 08/01/21 21:25 Sodium Chloride IV Infused Q24H ALICIA Infusion Azithromycin 500 mg/ Dextrose 250 mls @ 250 mls/hr 07/31/21 17:15 08/01/21 19:03 IV Infused Q24H ALICIA Infusion Fentanyl 1,000 mcg/ Dextrose 250 mls @ 4.085 mls/hr 08/01/21 13:15 08/02/21 10:51 IV 3 mcg/kg/hr TITRATE ALICIA 61.275 mls/hr Titration Protocol 0.2 MCG/KG/HR Propofol 1,000 mg in 100 mls @ 2.451 mls/hr 08/01/21 13:30 08/02/21 11:08 Propofol IV 50 mcg/kg/min TITRATE ALICIA 24.51 mls/hr Administration Protocol 5 MCG/KG/MIN [place] 50 mg/ 250 mls @ 19.608 mls/hr 08/01/21 13:30 08/02/21 05:30 Sodium Chloride IV 0.5 mcg/kg/min TITRATE ALICIA 12.255 mls/hr Titration Protocol 0.8 MCG/KG/MIN Lorazepam 1 mg 07/31/21 13:35 08/02/21 11:12 Lorazepam 2 Mg/Ml Inj IV 1 mg Q4HR PRN Administration Anxiety Oxycodone/Acetaminophen 1 tab 07/31/21 09:19 07/31/21 15:49 Oxycodone/Acetaminophen 5/325 Tablet PO 1 tab Q4HR PRN Administration Pain, Moderate (4-6) Pantoprazole Sodium 40 mg 08/01/21 09:00 08/02/21 11:04 Pantoprazole 40 Mg Vial IV 40 mg DAILY ALICIA Administration Objective Ventilator Parameters: Ventilator Settings FiO2 40 RT Vent Frequency 18 Ventilator Tidal Volume 450 Exhaled Positive End Expiratory 13 Pressure Inspiratory Phase Time 0.91 I:E Ratio 1:1.5 Patient Position Supine Labs Result Diagrams: 08/02/21 05:38 08/02/21 05:38 Labs: Laboratory Results - last 24 hr 08/01/21 08/01/21 08/02/21 15:25 21:10 05:38 WBC 8.8 RBC 4.15 L Hgb 12.8 L Hct 37.8 L MCV 90.9 MCH 30.8 MCHC 33.9 RDW 13.7 Plt Count 205 Neut % (Auto) 83.6 H Lymph % (Auto) 10.9 L [place] % (Auto) 5.4 Eos % (Auto) 0.0 L Baso % (Auto) 0.1 Neut # (Auto) 7400 H Lymph # (Auto) 1000 L [place] # (Auto) 500 Eos # (Auto) 0 Baso # (Auto) 0 PT INR ABG pH 7.44 7.48 H ABG pCO2 31.5 L 27.4 L ABG pO2 318 H* 157 H ABG HCO3 21 L 21 L ABG Total CO2 22 21 ABG O2 Saturation 100 100 ABG Base Excess -3.0 L -3.0 L FiO2 100 60 Sodium Potassium Chloride Carbon Dioxide BUN Creatinine Estimated GFR BUN/Creatinine Ratio Glucose Calcium Magnesium Ferritin Total Bilirubin AST ALT Alkaline Phosphatase Lactate Dehydrogenase C-Reactive Protein Total Protein Albumin Globulin Albumin/Globulin Ratio 08/02/21 08/02/21 08/02/21 05:38 05:38 05:38 WBC RBC Hgb Hct MCV MCH MCHC RDW Plt Count Neut % (Auto) Lymph % (Auto) [place] % (Auto) Eos % (Auto) Baso % (Auto) Neut # (Auto) Lymph # (Auto) [place] # (Auto) Eos # (Auto) Baso # (Auto) PT 13.3 H INR 1.2 ABG pH ABG pCO2 ABG pO2 ABG HCO3 ABG Total CO2 ABG O2 Saturation ABG Base Excess FiO2 Sodium 137 Potassium 4.2 Chloride 110 H Carbon Dioxide 23 BUN 20 Creatinine 0.71 Estimated GFR > 60.0 BUN/Creatinine Ratio 28.2 H Glucose 121 H Calcium 7.7 L Magnesium 2.6 H Ferritin 1470 H Total Bilirubin 0.4 AST 58 ALT 54 H Alkaline Phosphatase 90 Lactate Dehydrogenase 2075 H C-Reactive Protein 4.1 H Total Protein 5.2 L Albumin 2.7 L Globulin 2.5 Albumin/Globulin Ratio 1.1 Exam Vital Signs (past 8 hours): - 08/02/21 03:30 08/02/21 04:00 08/02/21 05:00 Temperature Pulse Rate 73 68 68 Respiratory Rate 18 18 18 Blood Pressure 122/68 124/68 Pulse Oximetry 97 98 98 08/02/21 05:51 08/02/21 06:00 08/02/21 06:30 Temperature Pulse Rate 68 67 66 Respiratory Rate 18 18 18 Blood Pressure 128/70 Pulse Oximetry 98 98 97 08/02/21 07:00 08/02/21 07:30 08/02/21 07:57 Temperature Pulse Rate 68 66 73 Respiratory Rate 18 18 21 Blood Pressure 154/81 H 148/78 H Pulse Oximetry 98 98 97 08/02/21 08:00 08/02/21 08:30 Temperature 99.0 F Pulse Rate 80 78 Respiratory Rate 18 18 Blood Pressure 131/69 Pulse Oximetry 96 96 Fraction of Inspired Oxygen 60 Oxygen Delivery Method Mechanical Ventilation Oxygen Flow Rate 50 Assessment & Plan Time Spent With Patient Critical Care time: I spent a total of [] minutes of critical care time on this patient's care today; this time is exclusive of procedural time.
[2021-08-02 12:40] LABS: Fractionated Inspired Oxygen 40; HCO3 ABG 22 mmol/L (22-26); Oxygen Saturation ABG 93 % (95-100); PCO2 ABG 37.5 mmHg (35-45); PO2 ABG 69 mmHg (80-100); TCO2 ABG 24 mmol/L (21-31); pH ABG 7.39 (7.35-7.45)
--- NOTE | 2021-08-02 12:47 | DI.RAD.S_ITS ---
PROCEDURE: XR CHEST 1V INDICATIONS: ogt placement TECHNIQUE: One view of the chest was acquired. COMPARISON: [facility], CR, XR CHEST 1V, 08/02/2021, 5:36. FINDINGS: Surgical changes and devices: Oral gastric tube in the stomach. Right-sided PICC line tip in the distal SVC Lungs and pleura: Lung bases are clear. Nonobstructive bowel gas pattern noted. Bones and chest wall: No suspicious bony lesions. Overlying soft tissues appear unremarkable. IMPRESSION: Enteric feeding tube in the stomach. Approved by: Jamey Lopez M.D. on 08/02/2021 at 12:52
[2021-08-02] MEDS: fentaNYL 1,000 MCG in DEXTROSE 5% IN WATER 230 ML 102.125 ML IV ×3 (13:36→20:45)
--- NOTE | 2021-08-02 14:10 | PC.NURSE ---
Addendum entered by Shelia Murphy R.N. 08/02/21 18:33: ABLE TO WEAN VEC TO OFF, PROPOFOL GTT @ 50MCG/KG AND 3MCG/KG/H OF FENTANYL WITH OCCASIONAL IV LORAZEPAM - TOLERATING TUBE FEEDING WELL THUS FAR- RESTRAINTS IN PLACE Original Note: PT REMAINS INTUBATE AND ON VENTILATOR VENT SETTINGS FIO2 40%/TV 450/PEEP13/RATE 18. PT RIDING VENT AT 18 BPM- SEDATION IS FENT GTT @ 3MCG/KG/H, PROPOFOL @ 55MCG/KG AND VECURONIUM 0.25, SHULTZ PATENT WITH ADEQUATE UOP DARK CLEAR YELLOW, BILAT WRIST RESTRAINTS CONTINUE - NGT CAME OUT UPON TURNING PT AND REPLACED WITH OGT ( 16FR) AND VERIFIED BY CXR PRIOR TO STARTING TUBE FEEDS PER CONSTRUCTION IRONWORKER ORDER, SCD'S ON AND SKIN UNREMARKABLE
--- NOTE | 2021-08-02 15:33 | CM.DPC ---
DCP Cont: Discussed patient during team rounds, and they are in process of attempting to find a higher level of care hospital for patient's needs. Patient is currently intubated. Spouse, is also admitted here. Patient have children between him and his , that is admitted here as well. The 12 year old is developmentally delayed, and is in the care of family and friends. There is also a 21 year old son as well. P: DCP to continue to follow for any needs. At this time, patient is still intubated, and team is in the process of locating a higher level hospital. Camryn Warner RN/[employer]
[2021-08-02] MEDS: cefTRIAXone 1,000 MG in SODIUM CHLORIDE 0.9% 100 ML 200 ML IV (17:13)
[2021-08-02] MEDS: AZITHROMYCIN 500 MG in DEXTROSE 5% IN WATER 250 ML IV (17:18)
--- NOTE | 2021-08-02 22:49 | PC.NURSE ---
Addendum entered by Mira Hernandez R.N. 08/02/21 23:08: CONTINUATION - ALL BELONGINGS TRANSPORTED WITH PATIENT TO INCLUDE PATIENT'S BLACK BAG, PATIENT BELONGING BAG, CELL PHONE, AND CELL PHONE RECORD PRESSMAN. VSS AT TIME OF TRANSPORT. Original Note: 2044 - PATIENT TRANSFERRED OUT TO [facility]. TRANSPORT TEAM CONSISTED OF TWO RNS AND 1 MANAGER GENERATION. REPORT GIVEN AT BEDSIDE. PATIENT TRANSPORTED ON VENTILATOR WITH SETTINGS 450 TV, 18 RATE, 13 PEEP, 40% Fi02. TRANSPORTED WITH PROPOFOL OF 50 MCG/KG/MIN, FENTANYL 3 MCG/KG/HR, RASS -3.
--- NOTE | 2021-08-03 16:25 | PM.DS.1 ---
History of Present Illness History of Present Illness Chief complaint: COVID+ Narrative: 55-year-old male with hypertension hyperlipidemia prevents with respiratory distress and shortness of breath previously diagnosed 8 days ago with COVID which is now progressed to pneumonia. Patient is unvaccinated. His also has COVID. She started with symptoms 2 days before he did. His symptoms are not getting worse. She has been in the hospital for 3 days. He comes into the emergency do department complaining of shortness of breath respiratory distress significant cough. Patient states he is having difficulty eating and sleeping for the last 2-3 days. He has not been able to hydrate well. He is feeling dizzy lightheaded. He is having body aches fevers and chills. Patient having some abdominal pain and discomfort. But no diarrhea. Patient does not have a history of significant lung disease although he does have a history of asthma. He is not a smoker. Does have a prescription for albuterol inhaler which she uses infrequently. Emergency Department evaluation showed on admission he was acutely ill speaking in 2 word sentences on 4 L of oxygen at 94-95%. Laboratory testing revealed a mildly low white blood cell count normal hemoglobin and hematocrit sodium mildly low at 133 normal kidney function glucose mildly elevated at 143 mild liver enzyme elevation protein levels are low. After hydration in the emergency department patient began feeling a little bit better. But still required 4 L of oxygen to maintain his saturations. Patient was then admitted to the hospital Discharge Providers Provider Date of admission: 07/30/21 17:25 Discharge Date: 08/02/21 Primary care physician: Goyo Durán MD Consults: 07/31/21 12:21 Consult to Respiratory Therapy Evaluate & Treat Comment: Physician Instructions: Evaluate and treat 07/31/21 13:30 Consult to Tele-employee service officer Routine Comment: Consulting Provider: Mary [employer] Reason for consultation: Account Support Rep services 08/01/21 14:02 Consult to Dietitian, Adult Routine Comment: Reason For Exam: nutrtion Discharge provider: Goyo Durán MD Summary Hospital Course Discharge Diagnosis: COVID-19 pneumonia Acute respiratory failure ARDS acute respiratory distress syndrome Dehydration Severe protein calorie nutrition Transaminitis Essential hypertension Hospital Course: 55-year-old male was admitted the hospital with COVID pneumonia his is also positive in had been in the hospital for 3 or 4 days. Patient was admitted on the 3rd. And rapidly deteriorated over the 1st the 30 hours. He went from 6 L nasal cannula to heated high-flow. Was on heated high-flow at 75 L at 100% for 24 hours patient was quite hypoxic and required lots of sedation to keep his saturations normal. Patient continued to progressively D, align and required mechanical ventilation and intubation. Patient was mechanically intubated and ventilated for a 30 hours before transfer from the hospital. During the hospital stay he was started on the typical treatment for COVID pneumonia with remdesivir IV dexamethasone and bar sits Nab. Patient was continued on his home medication for high blood pressure. His liver enzymes were monitored. He was started on prophylactic antibiotics at the time of in activation with Rocephin and azithromycin. He is was started on appropriate DVT prophylaxis for critical patient with COVID pneumonia. After 48 hours of mechanical ventilation intubation with patient not showing signs of significant improvement transfer was arranged through [facility]. Exam Vital Signs (past 8 hours): Fraction of Inspired Oxygen 40 Oxygen Delivery Method Mechanical Ventilation Oxygen Flow Rate 50 Objective Labs Result Diagrams: 08/02/21 05:38 08/02/21 05:38 [facility] Medical History Anxiety (1999) Asthma (~1970) Cervical spine disease (2009) Chicken pox (1970) CTS (carpal tunnel syndrome) (2005) Depression (1999) Fibromyalgia (2011) GERD (gastroesophageal reflux disease) Hayfever (1965) Hypertension (2012) Pneumonia due to COVID-19 virus Skin tags, multiple acquired (2012) Surgical History Anesthesia History of carpal tunnel repair (2007) History of oral surgery (2012) Family History Child Age: 12 [id number] syndrome Father Cancer Lung cancer Colon cancer Grandfather Heart disease High cholesterol Mother Age: 81 Depression Breast cancer Dementia Grandmother Diabetes mellitus Grandmother COPD (chronic obstructive pulmonary disease) Grandfather No problems noted. Social History marital status: household members: spouse and children Smoking Status: Current every day smoker alcohol intake: current substance use type: marijuana (MEDICAL ) Discharge Plan Discharge Plan Patient Disposition: [facility] Other facility: [facility] Nursing Discharge Comment: ALL TRANSFER PAPERWORK GIVEN TO TRANSPORT TEAM. ALL PATIENT BELONGINGS GIVEN TO TRANSPORT TEAM. Discharge Data Primary Care Provider: Goyo Durán Discharges patient from system. Discharge Date/Time: 08/02/21 20:45
[2021-08-15 15:53] LABS: PO2 ABG 318 mmHg (80-100)
== END 2021-08-02 20:45 | disposition short-term general hospital (02) | DRG 208 ==
LOC: ED 14:34 → AC 17:26 → ICU 08-01 10:28 → AC 08-07 09:42 → ICU 08-07 09:42
PROVIDERS: Internal Medicine; Internal Medicine Critical Care Medicine; Admitting Provider Student in an Organized Health Care Education/Training Program; Emergency Provider Emergency Medicine; PCP Family Medicine; Referring Provider Emergency Medicine; Visit Provider Family Medicine
DX: U07.1 COVID-19 (principal); J12.82 Pneumonia due to coronavirus disease 2019; J80 Acute respiratory distress syndrome; E43 Unspecified severe protein-calorie malnutrition; E86.0 Dehydration; R74.01 Elevation of levels of liver transaminase levels; F17.200 Nicotine dependence, unspecified, uncomplicated; I10 Essential (primary) hypertension; F41.9 Anxiety disorder, unspecified; K21.9 Gastro-esophageal reflux disease without esophagitis; Z68.25 Body mass index [BMI] 25.0-25.9, adult
CPT/HCPCS: 36415; 36569; 36592; 36600; 71045; 71275; 80053; 82728; 82805; 82962; 83605; 83615; 83690; 83735; 84145; 84484; 85025; 85610; 86140; 87040; 87633; 93005; 93010; 94002; 94003; 94640; 94762; 94799; 96361; 96374; 96375; 99223; 99233; 99238; 99284; 99285; C9113; J0696; J1100; J1650; J2060; J2405; J2704; J3010; Q9967

== ENCOUNTER → 2021-11-23 15:29 | Outpatient (CLI) | payer OTHER, SELFPAY ==
[2021-07-30 17:46] VITALS: BMI 25.7
[2021-08-02 18:02] VITALS: PULSE 73; RESP 18; O2SAT 96
--- NOTE | 2021-11-23 15:31 | DI.US.S_ITS ---
PROCEDURE: US SCROTUM INDICATIONS: scrotal pain TECHNIQUE: Real-time scanning was performed of the scrotum and testicles, with image documentation. Color and pulse Doppler interrogation was performed of both testicles. COMPARISON: None. FINDINGS: Right: Testicle is normal in size at 3.8 x 1.7 x 2.6 cm, and homogenous in echotexture. Multiple testicular calcifications are present largest measuring 3 mm. Epididymis is normal in overall size and morphology. No hydrocele or varicoceles. Overlying scrotal skin is normal in thickness. Left: Testicle is normal in size at 3.7 x 1.8 x 2.8 cm, and homogeneous in echotexture. Multiple testicular calcifications are present, largest measuring 3 mm. Epididymis is normal in overall size and morphology. No hydrocele or varicoceles. Overlying scrotal skin is normal in thickness. Doppler: Color and pulse Doppler demonstrate normal and symmetric arterial flow in both testicles. IMPRESSION: 1. Testicular calcifications noted, without intratesticular mass or other worrisome findings. In the absence of any other risk factors for testicular cancer (personal history of testicular cancer, a father or brother with testicular cancer, history of cryptorchidism or maldescent, etc.), no further imaging or biochemical followup is necessary. All that is recommended is routine monthly testicular self examination. 2. No source for right testicular pain identified. Dictated by: Jame NAGEL Interpreted: Beverly Singh MD on 11/23/2021 at 16:06 Transcribed by: ERIN on 11/23/2021 at 16:09 Approved by: Beverly Singh M.D. on 11/23/2021 at 16:36
== END ==
PROVIDERS: PCP Family Medicine; Referring Provider Family Medicine; Visit Provider Family Medicine
DX: N50.819 Testicular pain, unspecified (principal)
CPT/HCPCS: 76870

== ENCOUNTER → 2022-09-11 07:29 | Outpatient (CLI) | payer OTHER, SELFPAY ==
[2021-07-30 17:46] VITALS: BMI 25.7
[2021-08-02 18:02] VITALS: PULSE 73; RESP 18; O2SAT 96
[2022-09-11 08:39] LABS: Add Manual Diff / Slide Review NO; Basophils Absolute Auto 100 /uL (0-100); Eosinophils Absolute Auto 100 /uL (0-450); Hematocrit 42.2 % (41-53); Hemoglobin 14.5 g/dL (13.5-17.5); Lymphocytes Absolute Auto 1500 /uL (1100-4500); Lymphocytes Percent Auto 28.3 % (25-40); Mean Corpuscular HGB Conc 34.4 % (30-36); Mean Corpuscular Hemoglobin 31.3 PG (26-34); Mean Corpuscular Volume 90.9 fL (80-100); Monocytes Absolute Auto 500 /uL (0-900); Monocytes Percent Auto 10.4 % (3-14); Neutrophils Absolute Auto 3100 /uL (1500-7000); Neutrophils Percent Auto 59.3 % (50-75); Platelet Count 188 X10^3/uL (150-400); Red Blood Cell Count 4.64 X10^6/uL (4.5-5.9); Red Cell Distribution Width 13.2 % (11.6-14.8); White Blood Cell Count 5.3 X10^3/uL (4.5-11.0)
[2022-09-11 09:26] LABS: Alanine Aminotransferase 56 IU/L (<50); Albumin 4.4 g/dL (3.5-5.0); Albumin Globulin Ratio 1.5 (1.0-2.8); Alkaline Phosphatase 87 U/L (38-126); Aspartate Aminotransferase 35 IU/L (17-59); Bilirubin Total 0.3 mg/dL (0.2-1.3); Blood Urea Nitrogen 13 mg/dL (9-20); Calcium 9.2 mg/dL (8.4-10.2); Carbon Dioxide 22 mmol/L (22-32); Chloride 104 mmol/L (98-107); Cholesterol 273 mg/dL (140-199); Estimated Glomerular Filt Rate > 60 mL/min (>60); Glucose 112 mg/dL (70-100); HDL Cholesterol 41 mg/dL (40-60); HEMOLYSIS < 15 (0-50); Potassium 3.8 mmol/L (3.4-5.1); Sodium 139 mmol/L (137-145); Total Protein 7.4 g/dL (6.3-8.2); Triglycerides 488 mg/dL (35-150)
[2022-09-11 09:54] LABS: Prostate Specific Antigen Scrn 0.892 ng/mL (0.1-4.0)
== END ==
PROVIDERS: PCP Family Medicine; Referring Provider Family Medicine; Visit Provider Family Medicine
DX: E78.1 Pure hyperglyceridemia (principal); E78.2 Mixed hyperlipidemia; Z12.5 Encounter for screening for malignant neoplasm of prostate
CPT/HCPCS: 36415; 80053; 80061; 85025; G0103

== ENCOUNTER → 2022-12-21 10:06 | Outpatient (CLI) | payer OTHER, SELFPAY ==
[2022-12-19 10:28] VITALS: PULSE 73; RESP 18; O2SAT 96; BMI 25.7
--- NOTE | 2022-12-21 11:10 | DI.US.S_ITS ---
PROCEDURE: US SCROTUM INDICATIONS: RIGHT TESTICULAR DISCOMFORT QUESTION RIGHT SPERMATOCELE TECHNIQUE: Real-time scanning was performed of the scrotum and testicles, with image documentation. Color and pulse Doppler interrogation was performed of both testicles. COMPARISON: [facility], , US SCROTUM, 11/23/2021, 15:35. FINDINGS: Right: Testicle is normal in size at 3.9 x 1.5 x 3.5 cm, and homogenous in echotexture. Multiple small testicular calcifications are seen. Epididymis is normal in overall size and morphology. No hydrocele or varicoceles. Overlying scrotal skin is normal in thickness. Left: Testicle is normal in size at 3.1 x 1.7 x 3.1 cm, and homogeneous in echotexture. Multiple small testicular calcifications are seen. Epididymis is normal in overall size and morphology. No hydrocele or varicoceles. Overlying scrotal skin is normal in thickness. Doppler: Color and pulse Doppler demonstrate normal and symmetric arterial flow in both testicles. IMPRESSION: 1. No sonographic signs of testicular torsion or epididymitis. No spermatocele is seen. 2. Nonspecific testicular calcifications again seen. Approved by: Sukumar Covington M.D. on 12/21/2022 at 12:52
== END ==
PROVIDERS: PCP Family Medicine; Referring Provider Urology; Visit Provider Urology
DX: N50.811 Right testicular pain (principal)
CPT/HCPCS: 76870

== ENCOUNTER → 2024-01-10 16:26 | Outpatient (CLI) | payer OTHER, SELFPAY ==
[2022-12-19 10:28] VITALS: PULSE 73; RESP 18; O2SAT 96; BMI 25.7
--- NOTE | 2024-01-10 16:27 | DI.US.S_ITS ---
PROCEDURE: US SCROTUM INDICATIONS: testicle pain TECHNIQUE: Real-time scanning was performed of the scrotum and testicles, with image documentation. Color and pulse Doppler interrogation was performed of both testicles. COMPARISON: [facility], , US SCROTUM, 12/21/2022, 11:18. FINDINGS: Right: Testicle is normal in size at 3.8 x 2.6 cm, and homogenous in echotexture. Nonspecific calcifications again seen Epididymis is normal in overall size and morphology. Slightly increased vascularity. No hydrocele or varicoceles. Overlying scrotal skin is normal in thickness. Left: Testicle is normal in size at 3.9 x 2.9 cm, and homogeneous in echotexture. Nonspecific calcifications again seen. Epididymis is normal in overall size and morphology. No hydrocele or varicoceles. Overlying scrotal skin is normal in thickness. Doppler: Color and pulse Doppler demonstrate normal and symmetric arterial flow in both testicles. IMPRESSION: Slightly increased right epididymal hyperemia, possibly epididymitis Dictated by: Aubrey Mendez M.D. on 01/12/2024 at 10:00 Approved by: Aubrey Mendez M.D. on 01/12/2024 at 10:02
== END ==
PROVIDERS: PCP Family Medicine; Referring Provider Urology; Visit Provider Urology
DX: N50.811 Right testicular pain (principal)
CPT/HCPCS: 76870; 93975

== ENCOUNTER → 2024-02-03 07:25 | Outpatient (CLI) | payer OTHER, SELFPAY ==
[2022-12-19 10:28] VITALS: PULSE 73; RESP 18; O2SAT 96; BMI 25.7
[2024-02-03 09:01] LABS: Add Manual Diff / Slide Review NO; Basophils Absolute Auto 0 /uL (0-100); Basophils Percent Auto 1.1 % (0-2); Eosinophils Absolute Auto 0 /uL (0-450); Hematocrit 43.3 % (41-53); Hemoglobin 14.9 g/dL (13.5-17.5); Lymphocytes Absolute Auto 1400 /uL (1100-4500); Lymphocytes Percent Auto 33.4 % (25-40); Mean Corpuscular HGB Conc 34.4 % (30-36); Mean Corpuscular Hemoglobin 31.4 PG (26-34); Mean Corpuscular Volume 91.1 fL (80-100); Monocytes Absolute Auto 500 /uL (0-900); Monocytes Percent Auto 11.1 % (3-14); Neutrophils Absolute Auto 2300 /uL (1500-7000); Neutrophils Percent Auto 53.4 % (50-75); Platelet Count 205 X10^3/uL (150-400); Red Blood Cell Count 4.76 X10^6/uL (4.5-5.9); Red Cell Distribution Width 12.9 % (11.6-14.8); White Blood Cell Count 4.3 X10^3/uL (4.5-11.0)
[2024-02-03 09:12] LABS: Hemoglobin A1C% w Est Avg Glu 5.5 % (4.0-6.0)
[2024-02-03 09:20] LABS: Alanine Aminotransferase 44 IU/L (<50); Albumin 4.7 g/dL (3.5-5.0); Albumin Globulin Ratio 1.5 (1.0-2.8); Alkaline Phosphatase 86 U/L (38-126); Aspartate Aminotransferase 37 IU/L (17-59); BUN Creatinine Ratio 11.9 (6-22); Bilirubin Total 0.7 mg/dL (0.2-1.3); Blood Urea Nitrogen 14 mg/dL (9-20); Calcium 9.6 mg/dL (8.4-10.2); Carbon Dioxide 28 mmol/L (22-32); Chloride 103 mmol/L (98-107); Cholesterol 304 mg/dL (140-199); Estimated Glomerular Filt Rate > 60 mL/min (>60); Globulin 3.2 g/dL (1.7-4.1); Glucose 109 mg/dL (70-100); HDL Cholesterol 45 mg/dL (40-60); HEMOLYSIS < 15 (0-50); Potassium 4.7 mmol/L (3.4-5.1); Sodium 137 mmol/L (137-145); Total Protein 7.9 g/dL (6.3-8.2); Triglycerides 510 mg/dL (35-150)
[2024-02-03 09:45] LABS: TSH w/ Reflex to FT4 3.38 uIU/mL (0.47-4.68)
== END ==
LOC: LAB 07:26
PROVIDERS: PCP Family Medicine; Referring Provider Family Medicine; Visit Provider Family Medicine
DX: E78.2 Mixed hyperlipidemia (principal); K76.0 Fatty (change of) liver, not elsewhere classified; R73.09 Other abnormal glucose; Z79.899 Other long term (current) drug therapy; Z13.29 Encounter for screening for other suspected endocrine disorder
CPT/HCPCS: 36415; 80053; 80061; 83036; 84443; 85025

== ENCOUNTER → 2024-11-18 08:01 | Outpatient (CLI) | payer OTHER, SELFPAY ==
[2022-12-19 10:28] VITALS: PULSE 73; RESP 18; O2SAT 96; BMI 25.7
[2024-11-18 08:48] LABS: Add Manual Diff / Slide Review NO; Basophils Absolute Auto 0 /uL (0-100); Basophils Percent Auto 0.9 % (0-2); Eosinophils Absolute Auto 100 /uL (0-450); Eosinophils Percent Auto 1.9 % (2-4); Hematocrit 43.8 % (41-53); Hemoglobin 14.9 g/dL (13.5-17.5); Lymphocytes Absolute Auto 1700 /uL (1100-4500); Lymphocytes Percent Auto 32.7 % (25-40); Mean Corpuscular Hemoglobin 31.6 PG (26-34); Monocytes Absolute Auto 500 /uL (0-900); Monocytes Percent Auto 10.8 % (3-14); Neutrophils Absolute Auto 2700 /uL (1500-7000); Neutrophils Percent Auto 53.7 % (50-75); Platelet Count 189 X10^3/uL (150-400); Red Blood Cell Count 4.71 X10^6/uL (4.5-5.9); Red Cell Distribution Width 13.7 % (11.6-14.8); White Blood Cell Count 5.1 X10^3/uL (4.5-11.0)
[2024-11-18 09:10] LABS: Alanine Aminotransferase 64 IU/L (<50); Albumin 4.6 g/dL (3.5-5.0); Albumin Globulin Ratio 1.7 (1.0-2.8); Alkaline Phosphatase 77 U/L (38-126); Aspartate Aminotransferase 46 IU/L (17-59); BUN Creatinine Ratio 15.2 (6-22); Bilirubin Total 0.5 mg/dL (0.2-1.3); Blood Urea Nitrogen 16 mg/dL (9-20); Calcium 9.7 mg/dL (8.4-10.2); Carbon Dioxide 26 mmol/L (22-32); Chloride 103 mmol/L (98-107); Cholesterol 290 mg/dL (140-199); Estimated Glomerular Filt Rate > 60 mL/min (>60); Globulin 2.7 g/dL (1.7-4.1); Glucose 109 mg/dL (70-99); HDL Cholesterol 39 mg/dL (40-60); HEMOLYSIS < 15 (0-50); Potassium 4.1 mmol/L (3.4-5.1); Sodium 140 mmol/L (137-145); Total Protein 7.3 g/dL (6.3-8.2)
[2024-11-18 09:23] LABS: Triglycerides 799 mg/dL (35-150)
[2024-11-18 09:35] LABS: TSH w/ Reflex to FT4 3.44 uIU/mL (0.47-4.68)
[2024-11-18 09:38] LABS: Prostate Specific Antigen Scrn 0.826 ng/mL (0.1-4.0)
== END ==
PROVIDERS: PCP Family Medicine; Referring Provider Family Medicine; Visit Provider Family Medicine
DX: E78.2 Mixed hyperlipidemia (principal); E78.1 Pure hyperglyceridemia; K76.0 Fatty (change of) liver, not elsewhere classified; E34.9 Endocrine disorder, unspecified; N41.1 Chronic prostatitis; E78.5 Hyperlipidemia, unspecified; Z12.5 Encounter for screening for malignant neoplasm of prostate
CPT/HCPCS: 36415; 80053; 80061; 84443; 85025; G0103